=== PATIENT | female | born 1945 | race Hispanic/Latino ===

== ENCOUNTER 2018-04-21 07:08 | Emergency (ER) | payer MEDICARE, OTHER ==
[~2018-04-21] VITALS: Ht 149.9 cm; Wt 47.2 kg
[2018-04-21 08:18] LABS: BILIRUBIN,URINE NEGATIVE (NEGATIVE); CLARITY,URINE CLEAR (CLEAR); COLOR,URINE YELLOW (YELLOW); KETONES,URINE NEGATIVE (NEGATIVE); LEUKOCYTE ESTERASE ,URINE NEGATIVE (NEGATIVE); NITRITE,URINE NEGATIVE (NEGATIVE); PROTEIN,URINE DIPSTICK NEGATIVE (NEGATIVE); URINE UROBILINOGEN 1 mg/dL (0.2 - 1)
--- NOTE | 2018-04-21 08:23 | Diagnostic Imaging Report ---
PROCEDURE: CHEST SINGLE (PORTABLE) COMPARISON: Cervical spine radiographs 03/04/2017. INDICATIONS: SHORTNESS OF BREATH, WEAKNESS FINDINGS: Interval placement of a left subclavian approach implantable cardiac device. The device body projects over the left midlung. The lungs are well-inflated and without focal consolidation, pleural effusion, or pneumothorax. Tortuosity of the thoracic aorta with otherwise normal heart size. No overt pulmonary edema. No acute osseous abnormalities. 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 Surgical clips along the right chest wall and projecting over the right lower lung. Surgical clips projecting over the right upper quadrant of the abdomen likely related to prior cholecystectomy. CONCLUSION: No acute cardiopulmonary abnormality. Dictated by: Vinod Krause M.D. on 04/21/2018 at 8:26 Electronically approved by: Vinod Krause M.D. on 04/21/2018 at 8:26
[2018-04-21 08:26] LABS: BACTERIA,URINE FEW /HPF; EPITHELIAL CELLS,URINE FEW /LPF; RBC,URINE 0-5 /HPF (0-5); WBC,URINE (MAN) 0-5 /HPF (0-5)
[2018-04-21 08:33] LABS: BASOPHILS # (AUTO) 0.1 (0.0-0.1); BASOPHILS % 1.2 % (0.0-1.0); EOSINOPHILS # (AUTO) 0.1 (0.0-0.4); EOSINOPHILS % 0.7 % (0.0-6.0); HEMATOCRIT 36.6 % (34.2-44.1); HEMOGLOBIN 11.8 g/dL (12.0-16.0); LYMPHOCYTES # (AUTO) 1.1 (1.0-3.2); MEAN CORPUSCULAR HEMOGLOBIN 28.5 pg (28-32); MEAN CORPUSCULAR HGB CONC 32.2 g/dL (31-35); MEAN CORPUSCULAR VOLUME 88.4 fL (81-99); MONOCYTES # (AUTO) 0.4 (0.2-0.8); MONOCYTES % 5.3 % (4.4-11.3); NEUTROPHILS # (AUTO) 5.9 (2.1-6.9); NEUTROPHILS % 77.5 % (38.7-80.0); PLATELET COUNT 426 x10e3/uL (140-360); RED BLOOD COUNT 4.14 x10e6/uL (3.6-5.1); RED CELL DISTRIBUTION WIDTH 15.2 % (11.7-14.4)
[2018-04-21] MEDS: ASPIRIN 81 MG CHEW TAB PO ONE (08:37)
[2018-04-21 08:52] LABS: ALANINE AMINOTRANSFERASE 7 IU/L (0-55); ALBUMIN 3.1 g/dL (3.5-5.0); ALBUMIN/GLOBULIN RATIO 0.6 (0.8-2.0); ALKALINE PHOSPHATASE 64 IU/L (40-150); ANION GAP 12.7 mmol/L (8-16); BLOOD UREA NITROGEN 8 mg/dL (7-26); BUN/CREATININE RATIO 12 (6-25); CALCIUM 8.7 mg/dL (8.4-10.2); CARBON DIOXIDE 24 mmol/L (22-29); CHLORIDE 104 mmol/L (98-107); CREATINE KINASE 31 IU/L (29-168); CREATININE, SERUM 0.67 mg/dL (0.57-1.11); EST GLOMERULAR FILTRATION RATE > 60 ML/MIN (60-); GLUCOSE 143 mg/dL (74-118); MAGNESIUM 2.4 MG/DL (1.3-2.1); POTASSIUM 3.7 mmol/L (3.5-5.1); SODIUM 137 mmol/L (136-145)
== END 2018-04-21 12:49 | disposition home or self-care (01) ==
LOC: ER 07:08
DX: D64.9 Anemia, unspecified (principal); R53.1 Weakness; I10 Essential (primary) hypertension; E11.9 Type 2 diabetes mellitus without complications; I51.9 Heart disease, unspecified; Z95.0 Presence of cardiac pacemaker
CPT/HCPCS: 36415; 71045; 80053; 81001; 82550; 82553; 83735; 84484; 85025; 93005; 99284

== ENCOUNTER 2018-09-17 14:48 | Inpatient (IN) | payer MEDICARE, OTHER ==
[~2018-09-17] VITALS: Ht 149.9 cm; Wt 48.5 kg
--- OUTSIDE RECORDS SUMMARY | 2018-09-17 14:51 | XMS REPORT | Clinical Summary ---
Author Author [facility] Address Unknown Phone Unavailable Care Team Providers Care Medical Planner Name Role Phone Anders Brady Betty PCP Sharpless Unavailable Allergies Comments Active Allergy Reactions Severity Noted Date Naproxen Sodium 12/15/2015 Acetaminophen-Calcium 12/15/2015 Carbonat Diclofenac-Misoprostol 12/15/2015 Aspirin 12/15/2015 Ciprofloxacin 10/31/2016 Clarithromycin 10/31/2016 [place]ut 04/01/2018 Diphenhydramine 10/31/2016 Erythromycin 12/15/2015 Flurbiprofen 04/01/2018 Hydrocodone-Ibuprofen 12/15/2015 Ibuprofen 04/01/2018 Lisinopril Itching, Low 08/11/2018 Anxiety Acetaminophen-Pamabrom 10/31/2016 Morphine Sulfate 10/31/2016 Nsaids (Non-Steroidal 10/31/2016 Anti-Inflammatory Drug) Onion 04/01/2018 [place] 04/01/2018 [place] (Prunus Persica) 04/01/2018 Pear 04/01/2018 Penicillins 10/31/2016 Tetracyclines 10/31/2016 Tobramycin 04/01/2018 Tomato (Solanum 04/01/2018 Lycopersicum) Tuna Oil 04/01/2018 Medications End Date Status Medication Sig Dispensed Refills Start Date Active oxybutynin (DITROPAN-XL) Take 10 mg by 0 10 MG 24 hr tablet mouth daily. Active calcium citrate-vitamin D Take 1 tablet 0 (CITRACAL+D) 315-200 by mouth 2 mg-unit per tablet (two) times daily. Active fluticasone (FLONASE) 50 1 spray by 0 mcg/actuation nasal spray Nasal route daily. Active pregabalin (LYRICA) 50 MG Take 50 mg by 0 capsule mouth 2 (two) times daily. Active denosumab (XGEVA) 120 Inject 60 mg 0 mg/1.7 mL (70 mg/mL) subcutaneousl injection y every 6 (six) months. Active sodium chloride 0.65% 1 spray by 0 (SODIUM CHLORIDE) 0.65 % Nasal route nasal spray as needed for Congestion. 04/04/2019 Active levETIRAcetam (KEPPRA) Take 1 tablet 0 500 MG tablet (500 mg 8 total) by mouth 2 (two) times daily. 04/02/2018 Discontinued budesonide (ENTOCORT EC) Take 9 mg by 0 3 mg 24 hr capsule mouth every morning. 04/04/2018 Discontinued budesonide 9 mg TaDE Take 1 tablet 0 by mouth daily. 04/02/2018 Discontinued CALCIUM CITRATE/VITAMIN Take by 0 D3 (CITRACAL + D ORAL) mouth. 08/27/2018 Discontinued cholestyramine sugar-free Take 1 packet 0 (QUESTRAN LIGHT) 4 gram by mouth PwPk packet daily. 04/02/2018 Discontinued diphenoxylate-atropine Take 1 tablet 0 (LOMOTIL) 2.5-0.025 mg by mouth 4 per tablet (four) times daily as needed for Diarrhea. 08/27/2018 Discontinued esomeprazole (NEXIUM) 40 Take 40 mg by 0 MG capsule mouth daily. 04/02/2018 Discontinued folic acid (FOLVITE) 400 Take 400 mcg 0 MCG tablet by mouth daily. 08/27/2018 Discontinued furosemide (LASIX) 20 MG Take 20 mg by 0 tablet mouth daily. 04/01/2018 Discontinued GINKGO BILOBA ORAL Take by 0 mouth. 08/15/2018 Discontinued glimepiride (AMARYL) 2 MG Take 2 mg by 0 tablet mouth every morning before breakfast. 04/02/2018 Discontinued HYDROcodone-acetaminophen Take 1 tablet 0 (NORCO 5-325) 5-325 mg by mouth per tablet every 4 (four) hours as needed for Pain. 08/27/2018 Discontinued iron polysacch Take 1 0 [id number] 150-25-1 capsule by mg-mcg-mg Cap mouth 2 (two) times daily. 04/02/2018 Discontinued levETIRAcetam (KEPPRA) Take 500 mg 0 500 MG tablet by mouth 2 (two) times daily. 08/27/2018 Discontinued levocetirizine (XYZAL) 5 Take 5 mg by 0 MG tablet mouth every evening. 08/27/2018 Discontinued digestive enzymes Tab Take by 0 mouth. 08/27/2018 Discontinued LORazepam (ATIVAN) 1 MG Take 1 mg by 0 tablet mouth every 8 (eight) hours as needed for Anxiety. 08/15/2018 Discontinued metoprolol (TOPROL-XL) 25 Take 50 mg by 0 MG 24 hr tablet mouth daily . 08/15/2018 Discontinued psyllium (METAMUCIL) Take 1 packet 0 powder by mouth daily. 04/02/2018 Discontinued predniSONE (DELTASONE) 10 Take 40 mg by 0 MG tablet mouth daily. 04/01/2018 Discontinued pregabalin (LYRICA) 100 Take 50 mg by 0 MG capsule mouth 2 (two) times daily . 04/02/2018 Discontinued bifidobacterium infantis Take by 0 4 mg Cap mouth. 08/27/2018 Discontinued sertraline (ZOLOFT) 25 MG Take 25 mg by 0 tablet mouth daily. 04/02/2018 Discontinued starch (ANUSOL) 51 % Place 1 0 suppository suppository rectally nightly. 04/02/2018 Discontinued sucralfate (CARAFATE) 1 Take 1 g by 0 gram tablet mouth 4 (four) times daily. 04/01/2018 Discontinued sertraline (ZOLOFT) 25 MG Take 25 mg by 0 tablet mouth daily. 04/04/2018 Discontinued pantoprazole (PROTONIX) Take 40 mg by 0 40 MG tablet mouth daily. 04/01/2018 Discontinued LORazepam (ATIVAN) 1 MG Take 1 mg by 0 tablet mouth every 6 (six) hours as needed for Anxiety. 04/01/2018 Discontinued pregabalin (LYRICA) 50 MG Take 50 mg by 0 capsule mouth 3 (three) times daily. 08/15/2018 Discontinued losartan (COZAAR) 25 MG Take 25 mg by 0 tablet mouth daily. 04/01/2018 Discontinued furosemide (LASIX) 20 MG Take 20 mg by 0 tablet mouth 2 (two) times daily. 04/01/2018 Discontinued levocetirizine (XYZAL) 5 Take 5 mg by 0 MG tablet mouth every evening. 04/01/2018 Discontinued glimepiride (AMARYL) 2 MG Take 2 mg by 0 tablet mouth every morning before breakfast. 04/01/2018 Discontinued cholecalciferol, vitamin Take 5,000 0 D3, 5,000 unit Tab Units by mouth daily. 08/15/2018 Discontinued GINKGO BILOBA EXTRACT Take by 0 ORAL mouth. 04/01/2018 Discontinued pregabalin (LYRICA) 50 MG Take 50 mg by 0 capsule mouth 3 (three) times daily. 04/02/2018 Discontinued cholecalciferol, vitamin Take 50,000 0 D3, 50,000 unit Tab Units by mouth once a week. 08/15/2018 Discontinued metroNIDAZOLE (FLAGYL) Take 1 tablet 30 tablet 0 500 MG tablet (500 mg 8 total) by mouth 3 (three) times daily. 09/14/2018 Lactobacillus Take 1 tablet 60 tablet 0 acidoph-L.bulgar by mouth 2 8 (FLORANEX) 1 million cell (two) times Tab per tablet daily for 30 days. 08/24/2018 metroNIDAZOLE (FLAGYL) Take 1 tablet 30 tablet 0 500 MG tablet (500 mg 8 total) by mouth 3 (three) times daily for 9 days. 08/25/2018 simethicone (MYLICON) 80 Take 1 tablet 40 tablet 0 08/15/201 MG chewable tablet (80 mg total) 8 by mouth 4 (four) times daily for 10 days. 09/14/2018 glimepiride (AMARYL) 2 MG Take 1 tablet 30 tablet 0 201 tablet (2 mg total) 8 by mouth every morning before breakfast for 30 days. 09/14/2018 metoprolol (TOPROL-XL) 25 Take 1 tablet 30 tablet 0 201 MG 24 hr tablet (25 mg total) 8 by mouth daily for 30 days. 08/24/2018 ciprofloxacin HCl (CIPRO) Take 1 tablet 18 tablet 0 500 MG tablet (500 mg 8 total) by mouth 2 (two) times daily for 9 days. Active Problems Problem Noted Date Anemia 08/11/2018 Acute diarrhea 08/10/2018 Crohn disease 04/01/2018 Hypertension 04/01/2018 Type II diabetes mellitus 04/01/2018 Major depressive disorder 04/01/2018 Resolved Problems Problem Noted Date Resolved Date Crohn's disease 04/02/2018 08/11/2018 Crohn's disease with complication, unspecified gastrointestinal tract 04/02/2018 08/11/2018 location Intractable diarrhea 04/01/2018 08/11/2018 Encounters Care Team Description Date Type Specialty Susu Chase MD Shamsee, MD Cristian Mcgovern Maria, MD Acute diarrhea (Primary Dx); Crohn's disease with complication, unspecified gastrointestinal tract location (HCC); Dehydration; Crohn's disease without complication, unspecified gastrointestinal tract location (HCC); History of diabetes mellitus; Generalized abdominal pain; Hypertension, unspecified type; Type 2 diabetes mellitus without complication, without long-term current use of insulin (HCC); Bloody diarrhea; Sputum culture positive for Aspergillus (HCC); Mycobacterium avium complex colonization 08/10/2018 Hospital General Internal Medicine - Encounter 08/15/2018 08/10/2018 Orders Only General Internal Medicine Dru Hanson MD 04/03/2018 Anesthesia Gastroenterology Event [facility], Trever Horvath MD UPPER ENDOSCOPY,BIOPSY 04/03/2018 Surgery Gastroenterology Nayeli Bermudez MD Parhizgar, Alireza, MD Crohn's disease with complication, unspecified gastrointestinal tract location (HCC); Hypertension, unspecified type; Intractable diarrhea; Episode of recurrent major depressive disorder, unspecified depression episode severity (HCC); Type 2 diabetes mellitus without complication, without long-term current use of insulin (HCC); Aspergillus ([facility]); MAIC (mycobacterium avium-intracellulare complex) ([facility]) 04/01/2018 Hospital Oncology - Encounter 04/04/2018 Nayeli Bermudez MD 04/01/2018 Orders Only Internal Medicine after 09/16/2017 Social History Date Tobacco Use Types Packs/Day Years Used Never Smoker Smokeless Tobacco: Never Used Alcohol Use Drinks/Week oz/Week Comments No Sex Assigned at Date Recorded Not on file Industry Job Start Date Occupation Not on file Not on file Not on file Travel End Travel History Travel Start No recent travel history available. Last Filed Vital Signs Time Taken Vital Sign Reading 08/15/2018 12:42 PM CDT Blood Pressure 102/52 08/15/2018 12:42 PM CDT Pulse 87 08/15/2018 12:42 PM CDT Temperature 35.7 C (96.3 F) 08/15/2018 12:42 PM CDT Respiratory Rate 17 08/15/2018 12:42 PM CDT Oxygen Saturation 99% - Inhaled Oxygen - Concentration 08/15/2018 5:26 AM CDT Weight 46.8 kg (103 lb 3.2 oz) 08/10/2018 8:10 PM CDT Height 149.9 cm (4' 11") 08/15/2018 5:26 AM CDT Body Mass Index 20.84 Plan of Treatment Not on file Procedures Comments Procedure Name Priority Date/Time Associated Diagnosis POCT-GLUCOSE METER Routine 08/15/2018 12:46 PM CDT POCT-GLUCOSE METER Routine 08/15/2018 8:26 AM CDT (CELLAVISION MANUAL DIFF) Routine 08/15/2018 8:25 AM CDT CBC W/PLT COUNT & AUTO Routine 08/15/2018 DIFFERENTIAL 8:25 AM CDT CBC W/PLT COUNT & AUTO Routine 08/15/2018 DIFFERENTIAL 8:25 AM CDT MAGNESIUM Routine 08/15/2018 5:46 AM CDT BASIC METABOLIC PANEL (7) Routine 08/15/2018 5:46 AM CDT ASPERGILLUS ANTIBODIES Routine 08/15/2018 5:46 AM CDT ASPERGILLUS GALACTOMANNAN Routine 08/15/2018 ANTIGEN 5:46 AM CDT IMMUNOGLOBULIN E (IGE) Routine 08/15/2018 5:46 AM CDT POCT-GLUCOSE METER Routine 08/14/2018 9:[address] CHEST WITH HIGH STAT 08/14/2018 RESOLUTION/ILD 8:27 PM CDT POCT-GLUCOSE METER Routine 08/14/2018 12:16 PM CDT GI PATHOGEN PROFILE BY Routine 08/14/2018 PCR 11:41 AM CDT POCT-GLUCOSE METER Routine 08/14/2018 11:40 AM CDT POCT-GLUCOSE METER Routine 08/14/2018 8:07 AM CDT CBC W/PLT COUNT & AUTO Routine 08/14/2018 DIFFERENTIAL 6:46 AM CDT CBC W/PLT COUNT & AUTO Routine 08/14/2018 DIFFERENTIAL 6:46 AM CDT MAGNESIUM Routine 08/14/2018 6:46 AM CDT BASIC METABOLIC PANEL (7) Routine 08/14/2018 6:46 AM CDT POCT-GLUCOSE METER Routine 08/13/2018 9:12 PM CDT POCT-GLUCOSE METER Routine 08/13/2018 5:39 PM CDT SPIN/CONCENTRATION CHARGE Routine 08/13/2018 10:13 AM CDT FUNGUS CULTURE + SMEAR Routine 08/13/2018 10:13 AM CDT AFB CULTURE + SMEAR Routine 08/13/2018 10:13 AM CDT SPUTUM CULTURE + GRAM Routine 08/13/2018 STAIN 10:13 AM CDT CBC W/PLT COUNT & AUTO Routine 08/13/2018 DIFFERENTIAL 4:54 AM CDT CBC W/PLT COUNT & AUTO Routine 08/13/2018 DIFFERENTIAL 4:54 AM CDT MAGNESIUM Routine 08/13/2018 4:54 AM CDT PHOSPHORUS Routine 08/13/2018 4:54 AM CDT HEPATIC FUNCTION PANEL Routine 08/13/2018 4:54 AM CDT BASIC METABOLIC PANEL (7) Routine 08/13/2018 4:54 AM CDT POCT-GLUCOSE METER Routine 08/12/2018 9:03 PM CDT POCT-GLUCOSE METER Routine 08/12/2018 3:05 PM CDT POCT-GLUCOSE METER Routine 08/12/2018 11:14 AM CDT POCT-GLUCOSE METER Routine 08/12/2018 8:17 AM CDT CBC W/PLT COUNT & AUTO Routine 08/12/2018 DIFFERENTIAL 3:12 AM CDT CBC W/PLT COUNT & AUTO Routine 08/12/2018 DIFFERENTIAL 3:12 AM CDT MAGNESIUM Routine 08/12/2018 3:12 AM CDT PHOSPHORUS Routine 08/12/2018 3:12 AM CDT HEPATIC FUNCTION PANEL Routine 08/12/2018 3:12 AM CDT BASIC METABOLIC PANEL (7) Routine 08/12/2018 3:12 AM CDT POCT-GLUCOSE METER Routine 08/11/2018 6:04 PM CDT CMV PCR, QUANTITATIVE Routine 08/11/2018 1:31 PM CDT C-REACTIVE PROTEIN Routine 08/11/2018 9:29 AM CDT TSH/FREE T4 IF INDICATED Routine 08/11/2018 9:29 AM CDT LIPID PANEL Routine 08/11/2018 9:29 AM CDT MAGNESIUM Routine 08/11/2018 9:29 AM CDT PHOSPHORUS Routine 08/11/2018 9:29 AM CDT HEPATIC FUNCTION PANEL Routine 08/11/2018 9:29 AM CDT BASIC METABOLIC PANEL (7) Routine 08/11/2018 9:29 AM CDT STOOL PATH CHARGE Routine 08/11/2018 9:08 AM CDT STOOL CULTURE + SHIGA Routine 08/11/2018 TOXIN 9:08 AM CDT C. DIFFICILE GDH TOXIN Routine 08/11/2018 9:08 AM CDT HEMOGLOBIN A1C Routine 08/11/2018 6:[address] ABDOMEN/PELVIS WITH IV STAT 08/10/2018 CONTRAST 11:44 PM CDT STOOL PATH CHARGE Routine 08/10/2018 11:22 PM CDT SHIGA TOXIN SCREEN Routine 08/10/2018 11:22 PM CDT STOOL CULTURE + SHIGA STAT 08/10/2018 TOXIN 11:22 PM CDT URINALYSIS W/ MICROSCOPIC STAT 08/10/2018 11:21 PM CDT CBC W/PLT COUNT & AUTO STAT 08/10/2018 DIFFERENTIAL 8:30 PM CDT CBC W/PLT COUNT & AUTO STAT 08/10/2018 DIFFERENTIAL 8:30 PM CDT LIPASE STAT 08/10/2018 8:30 PM CDT AMYLASE STAT 08/10/2018 8:30 PM CDT HEPATIC FUNCTION PANEL STAT 08/10/2018 8:30 PM CDT BASIC METABOLIC PANEL (7) STAT 08/10/2018 8:30 PM CDT ECG 12-LEAD Routine 08/10/2018 8:26 PM CDT Procedure Note - Interface, External Ris In - 08/10/2018 8:34 PM CDT Ventricula r Rate 98 BPM Atrial Rate 98 BPM P-R Interval 134 ms QRS Duration 74 ms Q-T Interval 366 ms QTC Calculatio n(Bazett) 467 ms P [employer] 23 degrees R [employer] 44 degrees T [employer] 108 degrees Normal sinus rhythm Nonspecifi c ST and T wave abnormalit y Abnormal ECG When compared with ECG of 7 15:56, Nonspecifi c T wave abnormalit y now evident in Inferior leads ECG 12-LEAD STAT 08/10/2018 8:26 PM CDT POCT-GLUCOSE METER Routine 04/04/2018 3:54 PM CDT POCT-GLUCOSE METER Routine 04/04/2018 10:46 AM CDT POCT-GLUCOSE METER Routine 04/04/2018 7:45 AM CDT POCT-GLUCOSE METER Routine 04/03/2018 9:05 PM CDT POCT-GLUCOSE METER Routine 04/03/2018 5:49 PM CDT REPORT OF PROCEDURE - 04/03/2018 ENDOSCOPY URL 4:19 PM CDT REPORT OF PROCEDURE - 04/03/2018 ENDOSCOPY URL 4:10 PM CDT TISSUE EXAM AP Routine 04/03/2018 2:56 PM CDT COLONOSCOPY 04/03/2018 Crohn's disease with 1:40 PM CDT complication, unspecified gastrointestinal tract location (HCC) UPPER ENDOSCOPY,BIOPSY 04/03/2018 Crohn's disease with 1:40 PM CDT complication, unspecified gastrointestinal tract location (HCC) POCT-GLUCOSE METER Routine 04/03/2018 11:26 AM CDT POCT-GLUCOSE METER Routine 04/03/2018 7:17 AM CDT CBC W/PLT COUNT & AUTO Routine 04/03/2018 DIFFERENTIAL 4:15 AM CDT CBC W/PLT COUNT & AUTO Routine 04/03/2018 DIFFERENTIAL 4:15 AM CDT PHOSPHORUS Routine 04/03/2018 4:15 AM CDT MAGNESIUM Routine 04/03/2018 4:15 AM CDT CALCIUM, IONIZED Routine 04/03/2018 4:15 AM CDT BASIC METABOLIC PANEL (7) Routine 04/03/2018 4:15 AM CDT POCT-GLUCOSE METER Routine 04/02/2018 8:42 PM CDT POCT-GLUCOSE METER Routine 04/02/2018 5:21 PM CDT C-REACTIVE PROTEIN Routine 04/02/2018 2:18 PM CDT GI PATHOGEN PROFILE BY Routine 04/02/2018 PCR 11:58 AM CDT OVA AND PARASITE Routine 04/02/2018 EXAMINATION 11:55 AM CDT POCT-GLUCOSE METER Routine 04/02/2018 11:53 AM CDT POCT-GLUCOSE METER Routine 04/02/2018 7:27 AM CDT TSH/FREE T4 IF INDICATED Routine 04/02/2018 7:07 AM CDT BASIC METABOLIC PANEL (7) Routine 04/02/2018 7:07 AM CDT PHOSPHORUS Routine 04/02/2018 7:07 AM CDT MAGNESIUM Routine 04/02/2018 7:07 AM CDT LIPID PANEL Routine 04/02/2018 7:07 AM CDT CBC W/PLT COUNT & AUTO Routine 04/02/2018 DIFFERENTIAL 5:12 AM CDT B-TYPE NATRIURETIC FACTOR Routine 04/02/2018 (BNP) 5:12 AM CDT CBC W/PLT COUNT & AUTO Routine 04/02/2018 DIFFERENTIAL 5:12 AM CDT CALCIUM, IONIZED Routine 04/02/2018 5:12 AM CDT HEMOGLOBIN A1C Routine 04/02/2018 5:12 AM CDT POCT-GLUCOSE METER Routine 04/01/2018 10:11 PM CDT CBC W/PLT COUNT & AUTO Routine 04/01/2018 DIFFERENTIAL 10:10 PM CDT C-REACTIVE PROTEIN Routine 04/01/2018 10:10 PM CDT COMPREHENSIVE METABOLIC Routine 04/01/2018 PANEL 10:10 PM CDT CBC W/PLT COUNT & AUTO Routine 04/01/2018 DIFFERENTIAL 10:10 PM CDT STOOL PATH CHARGE Routine 04/01/2018 10:05 PM CDT SHIGA TOXIN SCREEN Routine 04/01/2018 10:05 PM CDT OCCULT BLOOD, STOOL Routine 04/01/2018 10:05 PM CDT STOOL CULTURE + SHIGA Routine 04/01/2018 TOXIN 10:05 PM CDT FECAL LEUKOCYTES Routine 04/01/2018 10:05 PM CDT C. DIFFICILE GDH TOXIN Routine 04/01/2018 10:04 PM CDT after 09/16/2017 Results * POC-Glucose meter (08/15/2018 12:46 PM CDT) Only the most recent of 25 results within the time period is included. POC-Glucose Meter 143 (H)Comment: TESTED AT 70 - 110 mg/dL [facility] [address] [facility] [id number] Specimen Blood Performing Organization Address City/State/Zipcode Phone Number [address] [address] MEDICAL CENTER * Manual Differential (08/15/2018 8:25 AM CDT) % Neutros 43 % [facility] % Lymphs 21 % [facility] % Monos 3 % [facility] % Eos 4 % [facility] % Baso 1 % [facility] % Bands 29 (H) 0 - 10 % [facility] # Neutros 3.14 1.56 - 6.13 K/ul [facility] # Lymphs 1.53 1.18 - 3.74 K/ul [facility] # Monos 0.22 (L) 0.24 - 0.36 K/uL [facility] # Eos 0.29 0.04 - 0.36 K/uL [facility] # Baso 0.07 0.01 - 0.08 K/uL [facility] # Bands 2.12 (H) 0.00 - 0.80 K/uL [facility] Total Counted 100 [facility] WBC Morphology Normal [facility] Giant Platelet Present [facility] Large Platelet Present [facility] Hypochromia 2+ moderate [facility] Anisocytosis 2+ moderate [facility] Microcytes 1+ few [facility] Macrocytes 2+ moderate [facility] Poikilocytes 1+ few [facility] Ovalocytes 1+ few [facility] Tear Drop Cells 1+ few [facility] Acanthocytes 1+ few [facility] Artifact Present [facility] Platelet Conc Adequate [facility] Specimen Blood - Arm, Left Narrative Performed At Received comment: [facility] User comments: [facility] [place] Slide comments: Performing Organization Address City/State/Zipcode Phone Number [facility] [address] [facility] [place] [address] MED[facility]ENTER * CBC with platelet count + automated diff (08/15/2018 8:25 AM CDT) Only the most recent of 8 results within the time period is included. WBC 7.3 3.5 - 10.5 K/L [facility] RBC 3.44 (L) 3.93 - 5.22 M/L [facility] Hemoglobin 8.6 (L) 11.2 - 15.7 GM/DL [facility] Hematocrit 28.5 (L) 34.1 - 44.9 % [facility] MCV 82.8 79.4 - 94.8 fL [facility] MCH 25.0 (L) 25.6 - 32.2 pg [facility] MCHC 30.2 (L) 32.2 - 35.5 GM/DL [facility] RDW 16.3 (H) 11.7 - 14.4 % [facility] Platelets 451 (H) 150 - 450 K/CU MM [facility] MPV 9.0 (L) 9.4 - 12.3 fL [facility] nRBC 0 0 - 0 /100 WBC [facility] Specimen Blood - Arm, Left Performing Organization Address City/State/Zipcode Phone Number [facility] [address] [place] [address] MEDICAL CENTER * Aspergillus antibodies (08/15/2018 5:46 AM CDT) Aspergillus flavus Ab NEGATIVE [facility] Aspergillus niger Ab NEGATIVE [facility] Aspergillus Fumigatus NEGATIVE [facility] Comment: INCORPORATED REFERENCE RANGE: NEGATIVE INTERPRETIVE CRITERIA: Negative: Antibody not detected Positive: Antibody detected A positive result is represented by 1 or more precipitin bands, and may indicate fungus ball, allergic bronchopulmonary aspergillosis (RAMYA) or invasive aspergillosis.Generally, the appearance of 3-4 bands indicates either fungus ball or RAMYA. Specimen Blood - Arm, Left Narrative Performed At Performing Lab [facility] *[facility] [address] [place] [phone] Jay Jay Phelps MD Performing Organization Address City/[facility] Phone Number [facility], [address] [place], [place] [id number] * Aspergillus galactomannan antigen (08/15/2018 5:46 AM CDT) Aspergillus Index Value <0.50 [facility] Aspergillus Antigen NOT DETECTED [facility] Comment: INCORPORATED REFERENCE RANGE: <0.50, NOT DETECTED A negative result does not exclude invasive aspergillosis. Follow-up testing may be indicated for high-risk patients. Specimen Blood - Arm, Left Narrative Performed At Performing Lab [facility] *[facility] [address] [place] [id number] Jay Jay Phelps MD Performing Organization Address [facility] Phone Number [facility], [address] [place], [place] [id number] * Magnesium (08/15/2018 5:46 AM CDT) Only the most recent of 7 results within the time period is included. Magnesium 2.0 1.6 - 2.6 mg/dL [facility] Specimen Blood - Arm, Left Performing Organization Address [facility] Phone Number [place] [phone] * Immunoglobulin E (IgE) (08/15/2018 5:46 AM CDT) Immunoglobulin E 30 114 OR LESS kU/L [facility] Specimen Blood - Arm, Left Narrative Performed At Performing Lab [facility] [address] [address] Aman Cody MD, PhD, GIOVANNI Performing Organization Address City/[facility] Phone Number [facility], [address] [place], [place] [phone] * Basic Metabolic Panel (08/15/2018 5:46 AM CDT) Only the most recent of 8 results within the time period is included. Sodium 137 136 - 145 meq/L [facility] Potassium 4.1 3.5 - 5.1 meq/L [facility] Chloride 110 (H) 98 - 107 meq/L [facility] CO2 20 (L) 22 - 29 meq/L [facility] BUN 3 (L) 7 - 21 mg/dL [facility] Creatinine 0.66 0.57 - 1.25 mg/dL [facility] Glucose 114 (H) 70 - 105 mg/dL [facility] Calcium 8.3 (L) 8.4 - 10.2 mg/dL [facility] EGFR 88Comment: ESTIMATED GFR IS mL/min/1.73 sq m [facility] NOT ACCURATE CREATININE [facility] CLEARANCE IN PREDICTING GLOMERULAR FILTRATION RATE. ESTIMATED GFR IS NOT APPLICABLE FOR DIALYSIS PATIENTS. Specimen Blood - Arm, Left Performing Organization Address City/State/Zipcode Phone Number [facility] [address] [place] [address] [facility] * CT chest with high resolution/ild (08/14/2018 8:27 PM CDT) Narrative Performed At FINAL REPORT [facility] CLINICAL INDICATION: Sputum cultures positive for Aspergillus and an a.c., previous imaging demonstrating central bronchiectasis COMPARISON: None Multiple axial images of the chest were performed without IV contrast. A high resolution protocol was performed, including supine inspiratory and expiratory high resolution imaging. This exam was performed according to our departmental dose-optimization program, which includes automated exposure control, adjustment of the mA and/or kV according to patient size and/or use of the iterative reconstruction technique. FINDINGS: Lung parenchyma: There is no focal consolidation. No interstitial abnormality is noted. A calcified granuloma is present in the right lower lobe but otherwise no pulmonary nodularity is noted. The lung volumes are normal. There is no evidence of air trapping. Pleural effusion: None. Pneumothorax: None. Tracheobronchial tree: No bronchiectasis is identified. There is no significant peribronchial thickening. No endobronchial opacification is noted. Pulmonary vasculature: No significant findings. Cardiac contours and great vessels: Atherosclerotic calcification of the aorta. Left subclavian ICD. Mediastinum: No significant findings. Lymph Nodes: No adenopathy in the mediastinum or beranna. Skeleton: No acute abnormality. Other: Status post right mastectomy and right breast reconstruction with right axillary lymph node dissection. Limited images of upper abdomen: No significant findings. IMPRESSION: No acute or active cardiopulmonary abnormality. Specifically, no CT evidence of pulmonary fibrosis, bronchiectasis, air trapping or significant nodularity. Signed: Aron Rogers MD Report Verified Date/Time:08/14/2018 20:51:25 Reading Location: [address] Reading Room Procedure Note Interface, External Ris In - 08/14/2018 8:53 PM CDT FINAL REPORT CLINICAL INDICATION: Sputum cultures positive for Aspergillus and an a.c., previous imaging demonstrating central bronchiectasis COMPARISON: None Multiple axial images of the chest were performed without IV contrast. A high resolution protocol was performed, including supine inspiratory and expiratory high resolution imaging. This exam was performed according to our departmental dose-optimization program, which includes automated exposure control, adjustment of the mA and/or kV according to patient size and/or use of the iterative reconstruction technique. FINDINGS: Lung parenchyma: There is no focal consolidation. No interstitial abnormality is noted. A calcified granuloma is present in the right lower lobe but otherwise no pulmonary nodularity is noted. The lung volumes are normal. There is no evidence of air trapping. Pleural effusion: None. Pneumothorax: None. Tracheobronchial tree: No bronchiectasis is identified. There is no significant peribronchial thickening. No endobronchial opacification is noted. Pulmonary vasculature: No significant findings. Cardiac contours and great vessels: Atherosclerotic calcification of the aorta. Left subclavian ICD. Mediastinum: No significant findings. Lymph Nodes: No adenopathy in the mediastinum or breanna. Skeleton: No acute abnormality. Other: Status post right mastectomy and right breast reconstruction with right axillary lymph node dissection. Limited images of upper abdomen: No significant findings. IMPRESSION: No acute or active cardiopulmonary abnormality. Specifically, no CT evidence of pulmonary fibrosis, bronchiectasis, air trapping or significant nodularity. Signed: Aron Rogers MD Report Verified Date/Time: 08/14/2018 20:51:25 Reading Location: [address] Reading Room Performing Organization Address City/State/Zipcode Phone Number [facility] * GI Pathogen Profile by PCR -ID Only (08/14/2018 11:41 AM CDT) Only the most recent of 2 results within the time period is included. CAMPYLOBACTER (PCR) Not detected Not detected [facility] PLESIOMONAS SHIGELLOIDES Not detected Not detected [facility] (PCR) [facility] SALMONELLA (PCR) Not detected Not detected [facility] YERSINIA ENTEROCOLITICA Not detected Not detected [facility] (PCR) [facility] VIBRIO CHOLERAE (PCR) Not detected Not detected [facility] ENTEROAGGREGATIVE E. COLI Not detected Not detected [facility] (EAEC) BY PCR [facility] ENTEROPATHOGENIC E. COLI Not detected Not detected [facility] (EPEC) BY PCR [facility] ENTEROTOXIGENIC E. COLI Not detected Not detected [facility] (ETEC) LT/ST BY PCR [facility] SHIGA-LIKE Not detected Not detected [facility] TOXIN-PRODUCING E. COLI [facility] (STEC) STX1/STX2 E. COLI O157 (PCR) Not detected [facility] SHIGELLA/ENTEROINVASIVE Not detected Not detected [facility] E. COLI (EIEC) BY PCR [facility] CRYPTOSPORIDIUM (PCR) Not detected Not detected [facility] CYCLOSPORA CAYETANENSIS Not detected Not detected [facility] (PCR) [facility] ENTAMOEBA HISTOLYTICA Not detected Not detected [facility] (PCR) [facility] GIARDIA LAMBLIA (PCR) Not detected Not detected [facility] ADENOVIRUS F 40/41 (PCR) Not detected Not detected [facility] ASTROVIRUS (PCR) Not detected Not detected [facility] NOROVIRUS GI/GII (PCR) Not detected Not detected [facility] ROTAVIRUS A (PCR) Not detected Not detected [facility] SAPOVIRUS (I, II, IV, V) Not detected Not detected [facility] BY PCR [facility] VIBRIO (PARAHAEMOLYTICUS, Not detected Not detected [facility] VULNIFICUS) [facility] Specimen Stool - Stool Narrative Performed At Other viruses, parasites and bacteria not targeted by this PCR panel cannot be [facility] excluded; therefore clinical correlation and follow up of serology, culture [facility] results, and other molecular studies is required. The results are not intended to be used as the sole means for clinical diagnosis or patient management decisions. This sample was tested at the [facility] Molecular Diagnostics Laboratory using the [facility] Gastrointestinal Panel. It is FDA cleared and has been verified and approved by the [facility] Molecular [facility]ostics [facility] for clinical use. This laboratory is CLIA-certified and [employer] (CAP)-accredited to perform high complexity testing. Performing Organization Address City/[facility] Phone Number [address] [address] [facility] * SPIN/CONCENTRATION CHARGE (08/13/2018 10:13 AM CDT) Concentration charged Done [facility] Specimen Sputum - Expectorated Performing Organization Address City/[facility] Phone Number [address] [address] [facility] * Sputum Culture + Gram Stain (08/13/2018 10:13 AM CDT) Result 4+ Normal respiratory danny [facility] present [facility] Gram Stain Result 3+ WBCs [facility] Gram Stain Result 5-10 epithelial cells [facility] Gram Stain Result No organisms seen [facility] Specimen Sputum - Expectorated Narrative Performed At [facility] Performing Organization Address [facility] Phone Number [address] [address] [facility] * Fungus culture + smear (08/13/2018 10:13 AM CDT) Result No fungus isolated in 28 days [facility] Fungus Smear No fungi seen [facility] Specimen Sputum - Expectorated Performing Organization Address City/[facility] [place] [address] [phone] [place] [address] * Phosphorus (08/13/2018 4:54 AM CDT) Only the most recent of 5 results within the time period is included. Phosphorus 3.0Comment: Specimen slightly 2.3 - 4.7 mg/dL [facility] Specimen Blood Performing Organization Address [facility] [place] [address] [phone] [place] [address] * Hepatic function panel (08/13/2018 4:54 AM CDT) Only the most recent of 4 results within the time period is included. Protein, Total 6.2Comment: Specimen slightly 6.0 - 8.3 gm/dL [facility] Albumin 2.8 (L)Comment: Specimen 3.5 - 5.0 g/dL [facility] Total Bilirubin 0.3Comment: Specimen slightly 0.2 - 1.2 mg/dL [facility] Bilirubin, Direct 0.1Comment: Specimen slightly 0.1 - 0.5 mg/dL [facility] Alkaline Phosphatase 68 40 - 150 U/L [facility] AST 12Comment: Specimen slightly 5 - 34 U/L [facility] ALT <6 (L)Comment: Specimen 6 - 55 U/L [facility] slightly [facility] Specimen Blood Performing Organization Address City/[facility] Phone Number [address] [address] [facility] * CMV PCR, quantitative (08/11/2018 1:31 PM CDT) CMV DNA Viral Load Negative or below the linear [facility] range of the assay (<375 [facility] copies/mL) Specimen Blood - Arm, Left Narrative Performed At Cytomegalovirus (CMV) infection can cause significant disease in [facility] immunosuppressed patients. However, it is common for CMV to manifest as a [facility] limited infection which is of no clinical significance in immunosuppressed patients or in healthy individuals. Viral load measurements are helpful to identify clinical CMV infection and to guide the pre-emptive management of antiviral therapy.For treatment of CMV infection due to reactivation in transplant recipients, a threshold between 4,000 and 5,000 copies/mL is suggested.For treatment of primary CMV infection, a lower threshold can be used. CMV infection may also be monitored using weekly serial measurements. Serial measurements of CMV DNA viral load can be evaluated by identifying a 10-fold change, as well as assessing the CMV DNA viral load and the clinical context for each patient. The plasma CMV DNA viral load was detected using quantitative polymerase chain reaction and fluorescent monitoring of a specific hybridized probe. Genetic variation and other factors can affect the accuracy of nucleic acid testing. Therefore, the results should be interpreted in light of clinical data. A negative result may not exclude the presence of CMV disease. This test was developed and its performance characteristics determined by the [facility] Pathology Department, Section of Molecular Pathology. It has not been cleared or approved by the U.S. Food and Drug Administration (FDA), since FDA approval is not required for clinical use of the test. Validation was done as required by The Clinical Laboratory Improvement Amendments of 1988. Performing Organization Address City/State/Zipcode Phone Number [address] [address] [facility] * TSH/Free T4 If Indicated (08/11/2018 9:29 AM CDT) Only the most recent of 2 results within the time period is included. TSH 3.52 0.35 - 4.94 uIU/mL [facility] Specimen Blood - Arm, Left Performing Organization Address City/State/Zipcode Phone Number [facility] [address] [place] [address] [facility] * C-Reactive Protein (08/11/2018 9:29 AM CDT) Only the most recent of 3 results within the time period is included. CRP 3.20 (H) 0.00 - 0.50 mg/dL [facility] Specimen Blood - Arm, Left Performing Organization Address City/[facility] Phone Number [facility] [address] [place] [address] [facility] * Lipid panel (08/11/2018 9:29 AM CDT) Only the most recent of 2 results within the time period is included. Triglycerides 71 mg/dL [facility] Cholesterol 131 mg/dL [facility] HDL 55 mg/dL [facility] LDL Calculated 62 mg/dL [facility] Specimen Blood - Arm, Left Narrative Performed At Triglyceride Reference Range: [facility] Low Risk <150 [facility] [id number] High Risk 200-499 Very High Risk>=500 Cholesterol Reference Range: Low Risk <200 [id number] High Risk>240 HDL Cholesterol Reference Range: Low Risk >=60 High Risk <40 LDL Cholesterol Reference Range: Optimal<100 Near [id number] [id number] Very High >=190 Performing Organization Address City/[facility] Phone Number [address] [address] [facility] * Clostridium difficile [facility] Toxin (08/11/2018 9:08 AM CDT) Only the most recent of 2 results within the time period is included. C. Difficle Toxin Negative Negative [facility] C. Difficile [facility] Antigen NegativeComment: No indication Negative [facility] of Clostridium difficile [facility] infection and no colonization. Discontinue enteric isolation and therapy. Specimen Stool - Stool Narrative Performed At Testing performed by [employer] Rapid Cassette Assay.For GDH, published [facility] sensitivity of the assay is 98.7% compared to cytotoxicity testing.For Toxin [facility] AB, published sensitivity is 87.8% and specificity 99.4% compared to cytotoxicity testing. Verification of kit performance was done by the [facility] Microbiology Lab prior to clinical use. Performing Organization Address City/[facility]/Zipcode Phone Number [address] [address] [facility] * STOOL PATH CHARGE (08/11/2018 9:08 AM CDT) Only the most recent of 3 results within the time period is included. Pathogen exam charged Done [facility] Specimen Stool - Per Rectum Performing Organization Address [facility] Phone Number [address] [address] [phone] [place] [address] * Stool culture + Shiga toxin (08/11/2018 9:08 AM CDT) Only the most recent of 3 results within the time period is included. Result No Salmonella, Shigella or [facility] Campylobacter isolated [facility] Specimen Stool - Per Rectum Performing Organization Address [facility] Phone Number [address] [address] [facility] * Hemoglobin A1c (08/11/2018 6:37 AM CDT) Only the most recent of 2 results within the time period is included. Hemoglobin A1C 5.8 4.3 - 6.1 % [facility] Specimen Blood Performing Organization Address [facility] Phone Number [address] [address] [facility] * CT abdomen pelvis with IV contrast (08/10/2018 11:44 PM CDT) Narrative Performed At FINAL REPORT Novalux CT, ABDOMEN \\T\\ PELVIS, WITH IV CONTRAST INDICATION: IBD, worsening diarrhea and pain COMPARISON: None TECHNIQUE: Post contrast abdomen and pelvis CT.Coronal and sagittal reformatted images obtained. DOSE REDUCTION: Dose modulation, iterative reconstruction, and/or weight-based adjustment of the mA/kV was utilized to reduce the radiation dose to as low as reasonably achievable. FINDINGS: Lower thorax: Visible airspaces clear. No effusion. Liver: No parenchymal abnormality. Gallbladder and biliary tree: Prior cholecystectomy. Mild central biliary ductal prominence. Pancreas: No acute findings. Spleen: No acute findings Adrenal Glands: No acute findings. Kidneys and ureters: No hydronephrosis or nephrolithiasis. Bladder and reproductive organs: Unremarkable. Stomach and Duodenum: No significant findings. Small and large intestine: Small bowel caliber is normal. Mural thickening is noted to affecting nearly the entire colon. No pneumatosis is present. Appendix: The appendix is not identified. No pericecal inflammatory changes are present. Major vascular structures: Normal aortic caliber. Peritoneum and retroperitoneum: No free air, fluid or adenopathy. Skeleton: Shallow dextroconvex scoliosis of the thoracolumbar spine with associated endplate degenerative changes. Additional findings: None. IMPRESSION: Mural thickening throughout the colon compatible with provided history of inflammatory bowel disease. No pneumatosis or bowel obstruction. Signed: JR Zuniga Robert MD Report Verified Date/Time:08/10/2018 23:52:19 Reading Location: [address] Reading Room Procedure Note Interface, External Ris In - 08/10/2018 11:54 PM CDT FINAL REPORT CT, ABDOMEN \\T\\ PELVIS, WITH IV CONTRAST INDICATION: IBD, worsening diarrhea and pain COMPARISON: None TECHNIQUE: Post contrast abdomen and pelvis CT. Coronal and sagittal reformatted images obtained. DOSE REDUCTION: Dose modulation, iterative reconstruction, and/or weight-based adjustment of the mA/kV was utilized to reduce the radiation dose to as low as reasonably achievable. FINDINGS: Lower thorax: Visible airspaces clear. No effusion. Liver: No parenchymal abnormality. Gallbladder and biliary tree: Prior cholecystectomy. Mild central biliary ductal prominence. Pancreas: No acute findings. Spleen: No acute findings Adrenal Glands: No acute findings. Kidneys and ureters: No hydronephrosis or nephrolithiasis. Bladder and reproductive organs: Unremarkable. Stomach and Duodenum: No significant findings. Small and large intestine: Small bowel caliber is normal. Mural thickening is noted to affecting nearly the entire colon. No pneumatosis is present. Appendix: The appendix is not identified. No pericecal inflammatory changes are present. Major vascular structures: Normal aortic caliber. Peritoneum and retroperitoneum: No free air, fluid or adenopathy. Skeleton: Shallow dextroconvex scoliosis of the thoracolumbar spine with associated endplate degenerative changes. Additional findings: None. IMPRESSION: Mural thickening throughout the colon compatible with provided history of inflammatory bowel disease. No pneumatosis or bowel obstruction. Signed: JR Nadia, Zhang SOTO Report Verified Date/Time: 08/10/2018 23:52:19 Reading Location: [address] Reading Room Performing Organization Address City/State/Zipcode Phone Number [facility] * Shiga Toxin Screen (08/10/2018 11:22 PM CDT) Only the most recent of 2 results within the time period is included. Shiga toxin 1 Not detected Not detected [facility] Shiga toxin 2 Not detected Not detected [facility] Specimen Stool - Per Rectum Performing Organization Address City/State/Zipcode Phone Number [facility] [address] [phone] [facility] * Urinalysis w/ Microscopic (08/10/2018 11:21 PM CDT) Color, UA Colorless [facility] Clarity, UA Clear [facility] Specific [place], UA 1.003 1.001 - 1.035 [facility] pH, UA 5.0 5.0 - 8.0 [facility] Protein, UA Negative Negative [facility] Glucose, UA Negative Negative [facility] Ketones, UA Negative Negative [facility] Bilirubin, UA Negative Negative [facility] Blood, UA Negative Negative [facility] Nitrite, UA Negative Negative [facility] Leukocytes, UA Negative Negative [facility] Urobilinogen, UA 0.2 0.2 - 1.0 mg/dL [facility] RBC, UA <1 /HPF [facility] WBC, UA 1 /HPF [facility] Bacteria, UA Rare [facility] Mucus Rare [facility] Squam Epithel, UA <1 /HPF [facility] Specimen Source Urine, Voided [facility] Specimen Urine - Urine, Voided Performing Organization Address [facility] Phone Number [address] * Lipase (08/10/2018 8:30 PM CDT) Lipase 67 8 - 78 U/L [facility] Specimen Blood - Arm, Left Performing Organization Address [facility] Phone Number [address] * Amylase (08/10/2018 8:30 PM CDT) Amylase 133 (H) 25 - 125 U/L [facility] Specimen Blood - Arm, Left Performing Organization Address [facility] Phone Number [address] * ECG 12 lead (08/10/2018 8:26 PM CDT) Narrative Performed At Ventricular Rate 98 BPM [facility] Atrial Rate 98 BPM P-R Interval 134 ms QRS Duration 74 ms Q-T Interval 366 ms QTC Calculation(Bazett) 467 ms [employer] 23 degrees R [employer] 44 degrees [employer] 108 degrees Normal sinus rhythm Nonspecific ST and T wave abnormality Abnormal ECG When compared with ECG of 31-OCT-2016 15:56, Nonspecific T wave abnormality now evident in Inferior leads Confirmed by MD JUS, IHAB ([id number]) on 08/10/2018 9:49:29 PM Procedure Note Interface, External Ris In - 08/10/2018 9:49 PM CDT Ventricular Rate 98 BPM Atrial Rate 98 BPM P-R Interval 134 ms QRS Duration 74 ms Q-T Interval 366 ms QTC Calculation(Bazett) 467 ms [employer] 23 degrees R [employer] 44 degrees T [employer] 108 degrees Normal sinus rhythm Nonspecific ST and T wave abnormality Abnormal ECG When compared with ECG of 31-OCT-2016 15:56, Nonspecific T wave abnormality now evident in Inferior leads Confirmed by MD JUS, IHAB ([id number]) on 08/10/2018 9:49:29 PM Performing Organization Address City/State/Zipcode Phone Number [facility] * REPORT OF PROCEDURE - ENDOSCOPY URL (04/03/2018 4:19 PM CDT) Narrative Performed At * REPORT OF PROCEDURE - ENDOSCOPY URL (04/03/2018 4:10 PM CDT) Narrative Performed At * Tissue Exam (04/03/2018 2:56 PM CDT) Case Report Surgical Pathology [facility] Report [facility] Case: [id number] Authorizing Provider:Trever Das, Collected: 04/03/2018 1456 Ordering Location: [address] Received: 04/06/2018 0826 SERVICE Pathologist: Jarek Morrison MD Specimens: A) - Antrum, greater curveture B) - Antrum, lesser curve C) - Stomach, incisura D) - Stomach,Body, greater curvture E) - Stomach,Body, lesser curveture F) - Large Intestine, Colon - Right/Ascending, random r/o cmv G) - Large Intestine, Colon - Left/Descending, random r/o cmv H) - Polyp, Colon - Sigmoid, pseudo polyp I) - Rectum, r/o cmv DIAGNOSIS A. STOMACH, ANTRUM, GREATER [facility] CURVATURE, BIOPSY: [facility] - ANTRAL MUCOSA WITH CHRONIC INACTIVE GASTRITIS - NEGATIVE FOR HELICOBACTER PYLORI ORGANISMS - NEGATIVE FOR INTESTINAL METAPLASIA, DYSPLASIA, MALIGNANCY B. STOMACH, ANTRUM, LESSER CURVATURE, BIOPSY: - ANTRAL MUCOSA WITH ACUTE GASTRITIS AND INTESTINAL METAPLASIA - NEGATIVE FOR HELICOBACTER PYLORI ORGANISMS - NEGATIVE FOR DYSPLASIA, MALIGNANCY C. STOMACH, INCISURA, BIOPSY: - ANTRAL MUCOSA WITH CHRONIC INACTIVE GASTRITIS - NEGATIVE FOR HELICOBACTER PYLORI ORGANISMS - NEGATIVE FOR INTESTINAL METAPLASIA, DYSPLASIA, MALIGNANCY D. STOMACH, BODY, GREATER CURVATURE, BIOPSY: - OXYNTIC MUCOSA WITH NO SIGNIFICANT DIAGNOSTIC ABNORMALITY - NEGATIVE FOR HELICOBACTER PYLORI ORGANISMS - NEGATIVE FOR INTESTINAL METAPLASIA, DYSPLASIA, MALIGNANCY E. STOMACH, BODY, LESSER CURVATURE, BIOPSY: - OXYNTIC MUCOSA WITH NO SIGNIFICANT DIAGNOSTIC ABNORMALITY - NEGATIVE FOR HELICOBACTER PYLORI ORGANISMS - NEGATIVE FOR INTESTINAL METAPLASIA, DYSPLASIA, MALIGNANCY F. COLON, RIGHT/ASCENDING, RANDOM BIOPSIES: - MODERATE TO SEVERE CHRONIC ACTIVE COLITIS - POSITIVE FOR RARE CMV - NEGATIVE FOR GRANULOMAS, DYSPLASIA, MALIGNANCY G. COLON, LEFT/DESCENDING, RANDOM BIOPSIES: - MODERATE TO SEVERE CHRONIC ACTIVE COLITIS - NEGATIVE FOR CMV - NEGATIVE FOR GRANULOMAS, DYSPLASIA, MALIGNANCY H. COLON, SIGMOID PSEUDOPOLYP, BIOPSY: - INFLAMMATORY PSEUDOPOLYP - POSITIVE FOR RARE CMV - NEGATIVE FOR GRANULOMAS, DYSPLASIA, MALIGNANCY I. RECTUM, BIOPSY: - MODERATE TO SEVERE CHRONIC ACTIVE PROCTITIS - NEGATIVE FOR CMV - NEGATIVE FOR GRANULOMAS, DYSPLASIA, MALIGNANCY Signing Pathologist Direct Phone Line: [phone] COMMENT The biopsies show diffuse [facility] chronic active colitis which [facility] correlates with the endoscopic impression of inflammation extending from cecum to rectum (see colonoscopy report dated 04/03/18). The histologic findings are consistent with chronic inflammatory bowel disease. Rare CMV is identified by immunostain in right/ascending colon biopsies (specimen F). Around three viral inclusions were morphologically identified in the sigmoid inflammatory polyp (specimen H); however they are not present on the deeper level in the immunostain. Immunostain for CMV in the other colorectal biopsies (specimens G, I) are negative. Clinical and radiologic correlation is recommended. IDC: Dr. Perry concepcion. CPT Code(s) 85940u0 [facility] [id number] [facility] CLINICAL HISTORY Crohn's disease, rule out CMV [facility] SPECIMEN SOURCE A. Antrum greater curvature [facility] biopsy. B. Antrum lesser [facility] curvature biopsy. C. Incisura stomach biopsy. D. Stomach body greater curvature biopsy. E. Stomach body lesser curvature biopsy. F. Random right/ascending colon biopsy. G. Random left/descending colon biopsy. H. Sigmoid pseudopolyp. I. Rectum biopsy GROSS DESCRIPTION Specimen A: Received in [facility] formalin labeled "antrum", [facility] description "greater curvature" are two fragments measuring 0.2 and 0.5 cm in greatest dimension. Specimen is entirely submitted in A1. Specimen B: Received in formalin labeled "antrum", description "lesser curvature" are two fragments each measuring 0.2 cm in greatest dimension. Specimen is entirely submitted in B1. Specimen C: Received in formalin labeled "stomach", description "incisura" is a single fragment measuring 0.4 cm in greatest dimension. Specimen is entirely submitted in C1. Specimen D: Received in formalin labeled "stomach, body", description "greater curvature" are two fragments each measuring 0.3 cm in greatest dimension. Specimen is entirely submitted in D1. Specimen E: Received in formalin labeled "stomach, body", description "lesser curvature" are two fragments each measuring 0.2 cm in greatest dimension. Specimen is entirely submitted in E1. Specimen F: Received in formalin labeled "large intestine, colon right/ascending" are four fragments measuring 0.6 x 0.6 x 0.1 cm in aggregate. Specimen is entirely submitted in F1. Specimen G: Received in formalin labeled "large intestine, colon left/descending" are three fragments measuring 0.6 x 0.5 x 0.1 cm in aggregate. Specimen is entirely submitted in G1. Specimen H: Received in formalin labeled "polyp, colon sigmoid", description "pseudopolyp" is a single fragment measuring 0.2 cm in greatest dimension. Specimen is entirely submitted in H1. Specimen I: Received in formalin labeled "rectum" are three fragments measuring 0.6 x 0.6 x 0.1 cm in aggregate. Specimen is entirely submitted in I1. DB/ew MICROSCOPIC DESCRIPTION A-E. Immunostains for H.pylori [facility] are examined. [facility] F-I. Section shows multiple fragments of colonic mucosa, all of which are relatively uniformly involved by moderate to severe active inflammation characterized by cryptitis, crypt abscesses and focal surface erosions. Features of chronicity such as basal plasmacytosis and occasional crypt branching are seen. No definite paneth cell metaplasia is seen in the left colon biopsies. No granulomas are evident. Viral cytopathic changes are seen histologically in the sigmoid pseudopolyp. SPECIAL STUDIES The following special studies [facility] were performed on this case [facility] and the interpretation is incorporated in the diagnostic report above: The immunohistochemistry test was developed and its performance characteristics determined by [facility], Pathology Laboratory. It has not been cleared or approved by the U.S. Food and Drug Administration. The FDA has determined that such clearance or approval is not necessary. The test is used for clinical purposes. It should not be regarded as investigational or for research. This laboratory is certified under the Clinical Laboratory Improvement Amendments of 1988 (CLIA-88) as qualified to perform high complexity clinical laboratory testing. Specimen Tissue - Antrum Performing Organization Address [facility] Phone Number [address] * Calcium, Ionized (04/03/2018 4:15 AM CDT) Only the most recent of 2 results within the time period is included. Calcium, Ion 0.99 (L) 1.12 - 1.27 mmol/L [facility] pH, Blood 7.45 [facility] Specimen Blood - Arm, Left Performing Organization Address [facility] Phone Number [address] * Ova and Parasite Examination (04/02/2018 11:55 AM CDT) O&P Direct Smear Comment: Test not performed at No ova or parasites seen [facility]. See scanned report. [facility] O&P Concentrate Smear No ova or parasites seen No ova or parasites seen [facility] O&P Trichrome Smear No ova or parasites seen No ova or parasites seen [facility] Specimen Stool - Stool Narrative Performed At Performing Organization Address [facility] Phone Number [address] [address] [phone] [place] [address] * B-type Natriuretic Factor (BNP) (04/02/2018 5:12 AM CDT) BNP 155 (H) 0 - 100 pg/mL [facility] Specimen Blood - Arm, Left Performing Organization Address [facility] Phone Number [address] [address] [facility] * Comprehensive metabolic panel (04/01/2018 10:10 PM CDT) Protein, Total 7.1 6.0 - 8.3 gm/dL [facility] Albumin 3.4 (L) 3.5 - 5.0 g/dL [facility] Alkaline Phosphatase 66 40 - 150 U/L [facility] Total Bilirubin 0.1 (L) 0.2 - 1.2 mg/dL [facility] Sodium 138 136 - 145 meq/L [facility] Potassium 3.6 3.5 - 5.1 meq/L [facility] Chloride 107 98 - 107 meq/L [facility] CO2 23 22 - 29 meq/L [facility] BUN 10 7 - 21 mg/dL [facility] Creatinine 0.66 0.57 - 1.25 mg/dL [facility] Glucose 103 70 - 105 mg/dL [facility] Calcium 8.2 (L) 8.4 - 10.2 mg/dL [facility] AST 9 5 - 34 U/L [facility] ALT 6 6 - 55 U/L [facility] EGFR 88Comment: ESTIMATED GFR IS mL/min/1.73 sq m [facility] NOT ACCURATE CREATININE [facility] CLEARANCE IN PREDICTING GLOMERULAR FILTRATION RATE. ESTIMATED GFR IS NOT APPLICABLE FOR DIALYSIS PATIENTS. Specimen Blood - Central Venous Line Performing Organization Address City/State/Zipcode Phone Number [address] [phone] [facility] * Occult blood, stool (04/01/2018 10:05 PM CDT) Occult blood Positive (A) Negative [facility] Specimen Stool - Stool Performing Organization Address City/State/Zipcode Phone Number [facility] [address] [place], [place] [phone] [facility] * Fecal leukocytes (04/01/2018 10:05 PM CDT) Fecal Leukocytes 1+ Fecal leukocytes seen (A) No fecal leukocytes seen [facility] Specimen Stool - Stool Performing Organization Address City/State/Zipcode Phone Number [facility] [address] [place], [place] [phone] [facility] after 09/16/2017 Insurance Payer Benefit Subscriber ID Type Phone Address Plan / Group MEDICARE MEDICARE A xxxxxxxxxxx Medicare B MEDICAID MEDICAID xxxxxxxxx Medicaid OF [place] Advance Directives For more information, please contact: [address] [address] Date Inactivated Comments Code Status Date Activated 08/15/2018 4:51 PM Full Code 08/11/2018 5:29 AM This code status was determined by: Patient 04/04/2018 9:49 PM Full Code 04/01/2018 7:36 PM This code status was determined by: Patient
--- OUTSIDE RECORDS SUMMARY | 2018-09-17 14:52 | XMS REPORT ---
Author Author [facility] Address Unknown Phone Unavailable Care Team Providers Care Etcher Photoengraving Name Role Phone KYLAH BARBA Unavailable Unavailable Bing IRIZARRY Unavailable Unavailable Caleb SUNG Unavailable Unavailable Esther DESIR Unavailable Unavailable NATHANIEL ROQUE Unavailable Unavailable Problems This patient has no known problems. Allergies, Adverse Reactions, Alerts This patient has no known allergies or adverse reactions. Medications This patient has no known medications. Results Test Description Test Time Test Comments Text Results Atomic Results Result Comments FUNGUS CULTURE + SMEAR 2018-09-09 13:54:00 CULTURE (BEAKER) (test qkzj=7824) No fungus isolated in 28 days FUNGUS SMEAR (BEAKER) (test hffl=2937) No fungi seen STOOL CULTURE + SHIGA [id number] 10:04:00* Test Item Value Reference Range Comments CULTURE (BEAKER) (test fhrd=0046) No Salmonella, Shigella or Campylobacter isolated SPIN/CONCENTRATION [id number] 02:08:00* Test Item Value Reference Range Comments CONCENTRATION CHARGED (BEAKER) (test wlid=4252) Done CBC W/PLT COUNT & AUTO [id number] 13:22:00* Test Item Value Reference Range Comments WHITE BLOOD CELL COUNT (BEAKER) (test lghw=297) 7.3 K/ L 3.5-10.5 RED BLOOD CELL COUNT (BEAKER) (test zxle=889) 3.44 M/ L 3.93-5.22 HEMOGLOBIN (BEAKER) (test qwoo=906) 8.6 GM/DL 11.2-15.7 HEMATOCRIT (BEAKER) (test yfns=305) 28.5 % 34.1-44.9 MEAN CORPUSCULAR VOLUME (BEAKER) (test zgkv=863) 82.8 fL 79.4-94.8 MEAN CORPUSCULAR HEMOGLOBIN (BEAKER) (test xfur=130) 25.0 pg 25.6-32.2 MEAN CORPUSCULAR HEMOGLOBIN CONC (BEAKER) (test fnqs=877) 30.2 GM/DL 32.2-35.5 RED CELL DISTRIBUTION WIDTH (BEAKER) (test cwzg=396) 16.3 % 11.7-14.4 PLATELET COUNT (BEAKER) (test gufj=241) 451 K/CU MM 150-450 MEAN PLATELET VOLUME (BEAKER) (test cxnw=413) 9.0 fL 9.4-12.3 NUCLEATED RED BLOOD CELLS (BEAKER) (test ihnx=836) 0 /100 WBC 0-0 (CELLAVISION MANUAL DIFF)2018-08-15 13:22:00* Test Item Value Reference Range Comments NEUTROPHILS - REL (CELLAVISION)(BEAKER) (test kxyr=7572) 43 % LYMPHOCYTES - REL (CELLAVISION)(BEAKER) (test cobw=7913) 21 % MONOCYTES - REL (CELLAVISION)(BEAKER) (test jcxe=4115) 3 % EOSINOPHILS - REL (CELLAVISION)(BEAKER) (test muhe=9816) 4 % BASOPHILS - REL (CELLAVISION)(BEAKER) (test abpa=5812) 1 % BANDS - REL (CELLAVISION)(BEAKER) (test ypgg=9207) 29 % 0-10 NEUTROPHILS - ABS (CELLAVISION)(BEAKER) (test lqih=3078) 3.14 K/ul 1.56-6.13 LYMPHOCYTES - ABS (CELLAVISION)(BEAKER) (test inrh=0890) 1.53 K/ul 1.18-3.74 MONOCYTES - ABS (CELLAVISION)(BEAKER) (test sbeb=6609) 0.22 K/uL 0.24-0.36 EOSINOPHILS - ABS (CELLAVISION)(BEAKER) (test ruri=9530) 0.29 K/uL 0.04-0.36 BASOPHILS - ABS (CELLAVISION)(BEAKER) (test mpjl=0170) 0.07 K/uL 0.01-0.08 BANDS - ABS (CELLAVISION)(BEAKER) (test tkmd=1054) 2.12 K/uL 0.00-0.80 TOTAL COUNTED (BEAKER) (test pqnp=3147) 100 WBC MORPHOLOGY (BEAKER) (test eupi=268) Normal GIANT PLATELETS (BEAKER) (test zyuw=524) Present LARGE PLT(BEAKER) (test frng=8591) Present HYPOCHROMIA (BEAKER) (test loiv=347) 2+ moderate ANISOCYTOSIS (BEAKER) (test tmop=038) 2+ moderate MICROCYTES (BEAKER) (test hche=172) 1+ few MACROCYTES (BEAKER) (test qbin=805) 2+ moderate POIKILOCYTES (BEAKER) (test vxbv=983) 1+ few OVALOCYTES (BEAKER) (test cpcm=469) 1+ few TEAR DROP CELLS (BEAKER) (test ayaj=452) 1+ few ACANTHOCYTES (BEAKER) (test nskc=385) 1+ few ARTIFACT (CELLAVISION)(BEAKER) (test doti=9056) Present PLATELET CONCENTRATION (CELLAVISION)(BEAKER) (test ifnc=4000) Adequate Received comment: User comments: Slide comments: POCT-GLUCOSE [id number] 12:49:00* Test Item Value Reference Range Comments POC-GLUCOSE METER (BEAKER) (test qtak=7237) 143 mg/dL 70-110 TESTED AT [place] [address] SPUTUM CULTURE + GRAM [id number] 11:31:00* Test Item Value Reference Range Comments CULTURE (BEAKER) (test twcm=8456) 4+ Normal respiratory danny present GRAM STAIN RESULT (BEAKER) (test iyha=2017) 3+ WBCs GRAM STAIN RESULT (BEAKER) (test ioug=611515) 5-10 epithelial cells GRAM STAIN RESULT (BEAKER) (test aftw=033685) No organisms seen POCT-GLUCOSE [id number] 08:28:00* Test Item Value Reference Range Comments POC-GLUCOSE METER (BEAKER) (test vvcw=8868) 158 mg/dL 70-110 TESTED AT [place] [id number] [facility] [address] [id number] 07:04:00* Test Item Value Reference Range Comments MAGNESIUM (BEAKER) (test kglz=550) 2.0 mg/dL 1.6-2.6 BASIC METABOLIC [id number] 07:04:00* Test Item Value Reference Range Comments SODIUM (BEAKER) (test ogjy=783) 137 meq/L 136-145 POTASSIUM (BEAKER) (test zxgo=503) 4.1 meq/L 3.5-5.1 CHLORIDE (BEAKER) (test sagg=165) 110 meq/L 98-107 CO2 (BEAKER) (test wyet=769) 20 meq/L 22-29 BLOOD UREA NITROGEN (BEAKER) (test bmqf=213) 3 mg/dL 7-21 CREATININE (BEAKER) (test gzwx=230) 0.66 mg/dL 0.57-1.25 GLUCOSE RANDOM (BEAKER) (test bhcm=386) 114 mg/dL 70-105 CALCIUM (BEAKER) (test lleu=865) 8.3 mg/dL 8.4-10.2 EGFR (BEAKER) (test rubg=2352) 88 mL/min/1.73 sq m ESTIMATED GFR IS NOT ACCURATE CREATININE CLEARANCE IN PREDICTING GLOMERULAR FILTRATION RATE. ESTIMATED GFR IS NOT APPLICABLE FOR DIALYSIS PATIENTS. GI PATHOGEN PROFILE BY [id number] 06:17:00* Test Item Value Reference Range Comments CAMPYLOBACTER (PCR) (test hpgf=3737606) Not detected Not detected PLESIOMONAS SHIGELLOIDES (PCR) (test fuyv=8464901) Not detected Not detected SALMONELLA (PCR) (test irmg=4155161) Not detected Not detected YERSINIA ENTEROCOLITICA (PCR) (test jeai=7842685) Not detected Not detected VIBRIO CHOLERAE (PCR) (test dtft=5365446) Not detected Not detected ENTEROAGGREGATIVE E. COLI (EAEC) BY PCR (test orkm=0160059) Not detected Not detected ENTEROPATHOGENIC E. COLI (EPEC) BY PCR (test ttoy=9819695) Not detected Not detected ENTEROTOXIGENIC E. COLI (ETEC) LT/ST BY PCR (test kzlm=6284705) Not detected Not detected SHIGA-LIKE TOXIN-PRODUCING E. COLI (STEC) STX1/STX2 (test efll=3076250) Not detected Not detected E. COLI O157 (PCR) (test lmox=8614756) Not detected SHIGELLA/ENTEROINVASIVE E. COLI (EIEC) BY PCR (test agid=0559548) Not detected Not detected CRYPTOSPORIDIUM (PCR) (test cenm=2537953) Not detected Not detected CYCLOSPORA CAYETANENSIS (PCR) (test zmdg=5527909) Not detected Not detected ENTAMOEBA HISTOLYTICA (PCR) (test bptd=7146300) Not detected Not detected GIARDIA LAMBLIA (PCR) (test ghyp=8207148) Not detected Not detected ADENOVIRUS F 40/41 (PCR) (test jxhv=5301667) Not detected Not detected ASTROVIRUS (PCR) (test vbzw=7035443) Not detected Not detected NOROVIRUS GI/GII (PCR) (test iesc=9670860) Not detected Not detected ROTAVIRUS A (PCR) (test kivw=9468931) Not detected Not detected SAPOVIRUS (I, II, IV, V) BY PCR (test fcsb=9211912) Not detected Not detected VIBRIO (PARAHAEMOLYTICUS, VULNIFICUS) (test mwto=3998206) Not detected Not detected Other viruses, parasites and bacteria not targeted by this PCR panel cannot be e xcluded; therefore clinical correlation and follow up of serology, culture resul ts, and other molecular studies is required. The results are not intended to be used as the sole means for clinical diagnosis or patient management decisions. T his sample was tested at the [facility] using the Safe [employer] Gastrointestinal Panel. It is FDA cleared and has been verified and approved by the [facility] for clinical use. Thi s laboratory is CLIA-certified and [employer] ([employer])-accred ited to perform high complexity testing.POCT-GLUCOSE [id number] 21:31:00* Test Item Value Reference Range Comments POC-GLUCOSE METER (BEAKER) (test uwnw=4030) 135 mg/dL 70-[address] [facility] [address] [facility] [address] [address], CHEST, WITH HIGH RESOLUTION, INTERSTITAL LUNG [id number] 20:51:00 Reason for exam:->evaluate bronchiectasis / ABPA / NTMFINAL REPORT CLINICAL INDICATION: Sputum cultures positive for [...] is no evidence of air trapping. Pleural ef fusion: None. Pneumothorax: None. Tracheobronchial tree: No bronchiectasis is id entified. There is no significant peribronchial thickening. No endobronchial opa cification is noted. Pulmonary vasculature: No significant findings. Cardiac con tours and great vessels: Atherosclerotic calcification of the aorta. Left subcla vian ICD. Mediastinum: No significant findings. Lymph Nodes: No adenopathy in th e mediastinum or breanna. Skeleton: No acute abnormality. 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 Limited images of upper abdomen: No significant findings. IMPRESSION: No a cute or active cardiopulmonary abnormality. Specifically, no CT evidence of pulm onary fibrosis, bronchiectasis, air trapping or significant nodularity. Signed: Aron Fernandez Verified Date/Time: 08/14/2018 20:51:25 Reading Location : [address] Reading Room -GLUCOSE [id number] 15:41:00* Test Item Value Reference Range Comments POC-GLUCOSE METER (BEAKER) (test uttq=7443) 173 mg/dL 70-110 TESTED AT [place] [id number] [facility] [address] POCT-GLUCOSE [id number] 12:24:00* Test Item Value Reference Range Comments POC-GLUCOSE METER (BEAKER) (test rvnl=9203) 144 mg/dL 70-110 TESTED AT [place] [id number] [facility] [address] POCT-GLUCOSE [id number] 08:17:00* Test Item Value Reference Range Comments POC-GLUCOSE METER (BEAKER) (test dnkf=1493) 142 mg/dL 70-110 TESTED AT [address] [address] BASIC METABOLIC [id number] 08:00:00* Test Item Value Reference Range Comments SODIUM (BEAKER) (test akvr=802) 133 meq/L 136-145 POTASSIUM (BEAKER) (test xqur=863) 3.5 meq/L 3.5-5.1 CHLORIDE (BEAKER) (test fsem=415) 105 meq/L 98-107 CO2 (BEAKER) (test xjqf=933) 22 meq/L 22-29 BLOOD UREA NITROGEN (BEAKER) (test ocqt=960) 2 mg/dL 7-21 CREATININE (BEAKER) (test zieb=161) 0.69 mg/dL 0.57-1.25 GLUCOSE RANDOM (BEAKER) (test jcnb=182) 126 mg/dL 70-105 CALCIUM (BEAKER) (test ycsg=118) 8.7 mg/dL 8.4-10.2 EGFR (BEAKER) (test nlah=8955) 84 mL/min/1.73 sq m ESTIMATED GFR IS NOT ACCURATE CREATININE CLEARANCE IN PREDICTING GLOMERULAR FILTRATION RATE. ESTIMATED GFR IS NOT APPLICABLE FOR DIALYSIS PATIENTS. [id number] 07:55:00* Test Item Value Reference Range Comments MAGNESIUM (BEAKER) (test xgfc=049) 1.4 mg/dL 1.6-2.6 CBC W/PLT COUNT & AUTO [id number] 07:06:00* Test Item Value Reference Range Comments WHITE BLOOD CELL COUNT (BEAKER) (test ykuq=981) 7.7 K/ L 3.5-10.5 RED BLOOD CELL COUNT (BEAKER) (test awhj=064) 3.86 M/ L 3.93-5.22 HEMOGLOBIN (BEAKER) (test eald=306) 9.6 GM/DL 11.2-15.7 HEMATOCRIT (BEAKER) (test fdnl=133) 31.9 % 34.1-44.9 MEAN CORPUSCULAR VOLUME (BEAKER) (test bjlz=972) 82.6 fL 79.4-94.8 MEAN CORPUSCULAR HEMOGLOBIN (BEAKER) (test jceb=788) 24.9 pg 25.6-32.2 MEAN CORPUSCULAR HEMOGLOBIN CONC (BEAKER) (test uxoz=418) 30.1 GM/DL 32.2-35.5 RED CELL DISTRIBUTION WIDTH (BEAKER) (test pdhu=757) 16.2 % 11.7-14.4 PLATELET COUNT (BEAKER) (test gjxh=898) 539 K/CU MM 150-450 MEAN PLATELET VOLUME (BEAKER) (test doyf=345) 8.6 fL 9.4-12.3 NUCLEATED RED BLOOD CELLS (BEAKER) (test jheb=677) 0 /100 WBC 0-0 NEUTROPHILS RELATIVE PERCENT (BEAKER) (test icfj=071) 50 % LYMPHOCYTES RELATIVE PERCENT (BEAKER) (test ixyt=573) 33 % MONOCYTES RELATIVE PERCENT (BEAKER) (test ypsz=942) 8 % EOSINOPHILS RELATIVE PERCENT (BEAKER) (test gduu=111) 7 % BASOPHILS RELATIVE PERCENT (BEAKER) (test efsg=233) 1 % NEUTROPHILS ABSOLUTE COUNT (BEAKER) (test rcci=143) 3.83 K/ L 1.56-6.13 LYMPHOCYTES ABSOLUTE COUNT (BEAKER) (test ecua=131) 2.57 K/ L 1.18-3.74 MONOCYTES ABSOLUTE COUNT (BEAKER) (test rxtm=540) 0.64 K/ L 0.24-0.36 EOSINOPHILS ABSOLUTE COUNT (BEAKER) (test fwlu=350) 0.57 K/ L 0.04-0.36 BASOPHILS ABSOLUTE COUNT (BEAKER) (test kkne=298) 0.09 K/ L 0.01-0.08 IMMATURE GRANULOCYTES-RELATIVE PERCENT (BEAKER) (test graj=3111) 0 % 0-1 POCT-GLUCOSE [id number] 21:19:00* Test Item Value Reference Range Comments POC-GLUCOSE METER (BEAKER) (test nfkb=7051) 162 mg/dL 70-[address] [facility] [address] [facility] [address] POCT-GLUCOSE [id number] 17:57:00* Test Item Value Reference Range Comments POC-GLUCOSE METER (BEAKER) (test xupp=1444) 160 mg/dL 70-110 TESTED AT [address] [address] STOOL CULTURE + SHIGA [id number] 12:11:00* Test Item Value Reference Range Comments CULTURE (BEAKER) (test skao=0029) No Salmonella, Shigella or Campylobacter isolated HEPATIC FUNCTION [id number] 06:59:00* Test Item Value Reference Range Comments TOTAL PROTEIN (BEAKER) (test drco=809) 6.2 gm/dL 6.0-8.3 Specimen slightly hemolyzed ALBUMIN (BEAKER) (test lxty=0079) 2.8 g/dL 3.5-5.0 Specimen slightly hemolyzed BILIRUBIN TOTAL (BEAKER) (test euyo=739) 0.3 mg/dL 0.2-1.2 Specimen slightly hemolyzed BILIRUBIN DIRECT (BEAKER) (test abwx=616) 0.1 mg/dL 0.1-0.5 Specimen slightly hemolyzed ALKALINE PHOSPHATASE (BEAKER) (test mnkv=482) 68 U/L 40-150 AST (SGOT) (BEAKER) (test iaep=397) 12 U/L 5-34 Specimen slightly hemolyzed ALT (SGPT) (BEAKER) (test eksp=925) < U/L 6-55 Specimen slightly hemolyzed [id number] 06:48:00* Test Item Value Reference Range Comments MAGNESIUM (BEAKER) (test nicc=845) 1.6 mg/dL 1.6-2.6 Specimen slightly hemolyzed [id number] 06:48:00* Test Item Value Reference Range Comments PHOSPHORUS (BEAKER) (test ybkj=295) 3.0 mg/dL 2.3-4.7 Specimen slightly hemolyzed BASIC METABOLIC [id number] 06:48:00* Test Item Value Reference Range Comments SODIUM (BEAKER) (test wxfl=489) 141 meq/L 136-145 POTASSIUM (BEAKER) (test ukoy=310) 4.0 meq/L 3.5-5.1 Specimen slightly hemolyzed CHLORIDE (BEAKER) (test hahz=648) 116 meq/L 98-107 CO2 (BEAKER) (test qzfj=269) 19 meq/L 22-29 BLOOD UREA NITROGEN (BEAKER) (test jrnl=462) 2 mg/dL 7-21 CREATININE (BEAKER) (test ixad=266) 0.58 mg/dL 0.57-1.25 Specimen slightly hemolyzed GLUCOSE RANDOM (BEAKER) (test dvdh=963) 75 mg/dL 70-105 CALCIUM (BEAKER) (test pmyx=186) 8.5 mg/dL 8.4-10.2 EGFR (BEAKER) (test hffz=0733) 102 mL/min/1.73 sq m ESTIMATED GFR IS NOT ACCURATE CREATININE CLEARANCE IN PREDICTING GLOMERULAR FILTRATION RATE. ESTIMATED GFR IS NOT APPLICABLE FOR DIALYSIS PATIENTS. CBC W/PLT COUNT & AUTO [id number] 06:23:00* Test Item Value Reference Range Comments WHITE BLOOD CELL COUNT (BEAKER) (test zpnd=082) 5.8 K/ L 3.5-10.5 RED BLOOD CELL COUNT (BEAKER) (test fchz=159) 3.79 M/ L 3.93-5.22 HEMOGLOBIN (BEAKER) (test mxbu=692) 9.5 GM/DL 11.2-15.7 HEMATOCRIT (BEAKER) (test fxyx=008) 32.0 % 34.1-44.9 MEAN CORPUSCULAR VOLUME (BEAKER) (test uain=976) 84.4 fL 79.4-94.8 MEAN CORPUSCULAR HEMOGLOBIN (BEAKER) (test xpek=967) 25.1 pg 25.6-32.2 MEAN CORPUSCULAR HEMOGLOBIN CONC (BEAKER) (test mrpu=979) 29.7 GM/DL 32.2-35.5 RED CELL DISTRIBUTION WIDTH (BEAKER) (test ulhl=455) 16.2 % 11.7-14.4 PLATELET COUNT (BEAKER) (test misc=660) 457 K/CU MM 150-450 MEAN PLATELET VOLUME (BEAKER) (test qlee=145) 10.0 fL 9.4-12.3 NUCLEATED RED BLOOD CELLS (BEAKER) (test fgsn=614) 0 /100 WBC 0-0 NEUTROPHILS RELATIVE PERCENT (BEAKER) (test lrwe=517) 41 % LYMPHOCYTES RELATIVE PERCENT (BEAKER) (test nari=908) 32 % MONOCYTES RELATIVE PERCENT (BEAKER) (test qtfu=893) 10 % EOSINOPHILS RELATIVE PERCENT (BEAKER) (test esgj=372) 16 % BASOPHILS RELATIVE PERCENT (BEAKER) (test sfbg=521) 1 % NEUTROPHILS ABSOLUTE COUNT (BEAKER) (test uouk=795) 2.36 K/ L 1.56-6.13 LYMPHOCYTES ABSOLUTE COUNT (BEAKER) (test hqer=422) 1.83 K/ L 1.18-3.74 MONOCYTES ABSOLUTE COUNT (BEAKER) (test ahec=638) 0.55 K/ L 0.24-0.36 EOSINOPHILS ABSOLUTE COUNT (BEAKER) (test zlmp=975) 0.92 K/ L 0.04-0.36 BASOPHILS ABSOLUTE COUNT (BEAKER) (test vfcz=885) 0.08 K/ L 0.01-0.08 IMMATURE GRANULOCYTES-RELATIVE PERCENT (ELISEOAKER) (test cxaa=0453) 0 % 0-1 POCT-GLUCOSE [id number] 21:26:00* Test Item Value Reference Range Comments POC-GLUCOSE METER (BEAKER) (test ifoq=8658) 156 mg/dL 70-110 TESTED AT [address] [address] CMV PCR, [id number] 15:51:00* Test Item Value Reference Range Comments CMV VIRAL LOAD - NEGATIVE (BEAKER) (test noox=2601) Negative or below the linear range of the assay (<375 copies/mL) Cytomegalovirus (CMV) infection can cause significant disease in immunosuppresse d patients. However, it is common for CMV to manifest as a limited infection whi ch is of no clinical significance in immunosuppressed patients or in healthy ind ividuals.Viral load measurements are helpful to identify clinical CMV infection and to guide the pre-emptive management of antiviral therapy. For treatment of CMV infection due to reactivation in transplant recipients, a threshold between 4,000 and 5,000 copies/mL is suggested. For treatment of primary CMV infection, a lower threshold can be used.CMV infection may also be monitored using weekly serial measurements. Serial measurements of CMV DNA viral load can be evaluated by identifying a 10-fold change, as well as assessing the CMV DNA viral load and the clinical context for each patient.The plasma CMV DNA viral load was detected using quantitative polymerase chain reaction and fluorescent monitoring of a s pecific hybridized probe. Genetic variation and other factors can affect the acc uracy of nucleic acid testing. Therefore, the results should be interpreted in l ight of clinical data. A negative result may not exclude the presence of CMV dis ease.This test was developed and its performance characteristics determined by vanessa mehta [facility] Pathology Department, Section of Molecular Patholog y. It has not been cleared or approved by the U.S. Food and Drug Administration (FDA), since FDA approval is not required for clinical use of the test. Validati on was done as required by The Clinical Laboratory Improvement Amendments of 198 8.POCT-GLUCOSE [id number] 15:06:00* Test Item Value Reference Range Comments POC-GLUCOSE METER (BEAKER) (test tkrl=0190) 167 mg/dL 70-110 TESTED AT [place] [address] SHIGA TOXIN [id number] 14:16:00* Test Item Value Reference Range Comments SHIGA TOXIN 1 (BEAKER) (test qeex=4261) Not detected Not detected SHIGA TOXIN 2 (BEAKER) (test jdon=8739) Not detected Not detected POCT-GLUCOSE [id number] 11:17:00* Test Item Value Reference Range Comments POC-GLUCOSE METER (BEAKER) (test afui=9731) 101 mg/dL 70-110 TESTED AT [place] [address] STOOL PATH [id number] 10:05:00* Test Item Value Reference Range Comments PATHOGEN EXAM CHARGED (BEAKER) (test jigr=7892) Done STOOL PATH [id number] 09:46:00* Test Item Value Reference Range Comments PATHOGEN EXAM CHARGED (BEAKER) (test xnmw=6020) Done POCT-GLUCOSE [id number] 08:20:00* Test Item Value Reference Range Comments POC-GLUCOSE METER (BEAKER) (test bnjw=3901) 119 mg/dL 70-110 TESTED AT [place] [address] [id number] 05:13:00* Test Item Value Reference Range Comments PHOSPHORUS (BEAKER) (test hxaj=225) 3.0 mg/dL 2.3-4.7 [id number] 05:13:00* Test Item Value Reference Range Comments MAGNESIUM (BEAKER) (test tfdi=206) 1.6 mg/dL 1.6-2.6 BASIC METABOLIC [id number] 05:13:00* Test Item Value Reference Range Comments SODIUM (BEAKER) (test zpuf=146) 137 meq/L 136-145 POTASSIUM (BEAKER) (test iltl=178) 3.7 meq/L 3.5-5.1 CHLORIDE (BEAKER) (test mjms=100) 113 meq/L 98-107 CO2 (BEAKER) (test zcsh=347) 17 meq/L 22-29 BLOOD UREA NITROGEN (BEAKER) (test etoo=213) 3 mg/dL 7-21 CREATININE (BEAKER) (test rckb=608) 0.60 mg/dL 0.57-1.25 GLUCOSE RANDOM (BEAKER) (test ejui=899) 74 mg/dL 70-105 CALCIUM (BEAKER) (test zzok=057) 8.2 mg/dL 8.4-10.2 EGFR (BEAKER) (test nwjj=5501) 99 mL/min/1.73 sq m ESTIMATED GFR IS NOT ACCURATE CREATININE CLEARANCE IN PREDICTING GLOMERULAR FILTRATION RATE. ESTIMATED GFR IS NOT APPLICABLE FOR DIALYSIS PATIENTS. HEPATIC FUNCTION [id number] 05:13:00* Test Item Value Reference Range Comments TOTAL PROTEIN (BEAKER) (test rasx=092) 6.2 gm/dL 6.0-8.3 ALBUMIN (BEAKER) (test cxuc=7921) 2.8 g/dL 3.5-5.0 BILIRUBIN TOTAL (BEAKER) (test sktq=738) 0.3 mg/dL 0.2-1.2 BILIRUBIN DIRECT (BEAKER) (test qjhf=976) 0.1 mg/dL 0.1-0.5 ALKALINE PHOSPHATASE (BEAKER) (test aqnl=801) 73 U/L 40-150 AST (SGOT) (BEAKER) (test rluj=644) 9 U/L 5-34 ALT (SGPT) (BEAKER) (test veqg=130) < U/L 6-55 CBC W/PLT COUNT & AUTO [id number] 04:54:00* Test Item Value Reference Range Comments WHITE BLOOD CELL COUNT (BEAKER) (test pyke=791) 6.6 K/ L 3.5-10.5 RED BLOOD CELL COUNT (BEAKER) (test vdkr=997) 3.70 M/ L 3.93-5.22 HEMOGLOBIN (BEAKER) (test qwsp=009) 9.2 GM/DL 11.2-15.7 HEMATOCRIT (BEAKER) (test ybwm=289) 31.1 % 34.1-44.9 MEAN CORPUSCULAR VOLUME (BEAKER) (test gwnf=065) 84.1 fL 79.4-94.8 MEAN CORPUSCULAR HEMOGLOBIN (BEAKER) (test ofmi=406) 24.9 pg 25.6-32.2 MEAN CORPUSCULAR HEMOGLOBIN CONC (BEAKER) (test dsaj=838) 29.6 GM/DL 32.2-35.5 RED CELL DISTRIBUTION WIDTH (BEAKER) (test pcts=825) 15.9 % 11.7-14.4 PLATELET COUNT (BEAKER) (test zpgh=016) 500 K/CU MM 150-450 MEAN PLATELET VOLUME (BEAKER) (test sckf=709) 8.9 fL 9.4-12.3 NUCLEATED RED BLOOD CELLS (BEAKER) (test nxyy=793) 0 /100 WBC 0-0 NEUTROPHILS RELATIVE PERCENT (BEAKER) (test sycd=363) 53 % LYMPHOCYTES RELATIVE PERCENT (BEAKER) (test uxzp=561) 25 % MONOCYTES RELATIVE PERCENT (BEAKER) (test jqst=696) 9 % EOSINOPHILS RELATIVE PERCENT (BEAKER) (test uaex=476) 11 % BASOPHILS RELATIVE PERCENT (BEAKER) (test uhpd=545) 2 % NEUTROPHILS ABSOLUTE COUNT (BEAKER) (test zrlx=698) 3.49 K/ L 1.56-6.13 LYMPHOCYTES ABSOLUTE COUNT (BEAKER) (test wtwo=786) 1.64 K/ L 1.18-3.74 MONOCYTES ABSOLUTE COUNT (BEAKER) (test qedu=236) 0.60 K/ L 0.24-0.36 EOSINOPHILS ABSOLUTE COUNT (BEAKER) (test mpct=849) 0.73 K/ L 0.04-0.36 BASOPHILS ABSOLUTE COUNT (BEAKER) (test uzlv=058) 0.11 K/ L 0.01-0.08 IMMATURE GRANULOCYTES-RELATIVE PERCENT (BEAKER) (test rsls=9999) 0 % 0-1 POCT-GLUCOSE [id number] 18:06:00* Test Item Value Reference Range Comments POC-GLUCOSE METER (BEAKER) (test hwgi=4616) 111 mg/dL 70-[address] [facility] [address] [address] C. DIFFICILE GDH [id number] 10:53:00* Test Item Value Reference Range Comments CDT TOXIN (test bdzg=[id number]) Negative Negative CDT GDH ANTIGEN (test hsna=[id number]) Negative Negative No indication of Clostridium difficile infection and no colonization. Discontinue enteric isolation and therapy. Testing performed by [employer] Rapid Cassette Assay. For GDH, published sensitivity of the assay is 98.7% compared to cytotoxicity testing. For Toxin AB, published sensitivity is 87.8% and specificity 99.4% compared to cytotoxicity testing.Ve rification of kit performance was done by the [facility] prior to cl inical use.TSH/FREE T4 IF [id number] 10:23:00* Test Item Value Reference Range Comments THYROID STIMULATING HORMONE (BEAKER) (test dtzo=612) 3.52 uIU/mL 0.35-4.94 [id number] 10:17:00* Test Item Value Reference Range Comments PHOSPHORUS (BEAKER) (test htxx=871) 3.1 mg/dL 2.3-4.7 [id number] 10:17:00* Test Item Value Reference Range Comments MAGNESIUM (BEAKER) (test oznx=466) 2.1 mg/dL 1.6-2.6 BASIC METABOLIC [id number] 10:17:00* Test Item Value Reference Range Comments SODIUM (BEAKER) (test chsl=912) 135 meq/L 136-145 POTASSIUM (BEAKER) (test lvhp=146) 3.7 meq/L 3.5-5.1 CHLORIDE (BEAKER) (test puhu=002) 109 meq/L 98-107 CO2 (BEAKER) (test opbk=466) 21 meq/L 22-29 BLOOD UREA NITROGEN (BEAKER) (test wfql=547) 5 mg/dL 7-21 CREATININE (BEAKER) (test ovxx=727) 0.68 mg/dL 0.57-1.25 GLUCOSE RANDOM (BEAKER) (test lsul=344) 92 mg/dL 70-105 CALCIUM (BEAKER) (test rcri=574) 8.9 mg/dL 8.4-10.2 EGFR (BEAKER) (test prri=5246) 85 mL/min/1.73 sq m ESTIMATED GFR IS NOT ACCURATE CREATININE CLEARANCE IN PREDICTING GLOMERULAR FILTRATION RATE. ESTIMATED GFR IS NOT APPLICABLE FOR DIALYSIS PATIENTS. LIPID [id number] 10:17:00* Test Item Value Reference Range Comments TRIGLYCERIDES (BEAKER) (test erlu=568) 71 mg/dL CHOLESTEROL (BEAKER) (test miui=564) 131 mg/dL HDL CHOLESTEROL (BEAKER) (test rzto=875) 55 mg/dL LDL CHOLESTEROL CALCULATED (BEAKER) (test nofv=529) 62 mg/dL Triglyceride Reference Range: Low Risk <150 Borderline 150-199 High Risk 200-499 Very High Risk >=500Cholesterol Reference Range: Low Risk <200 Borderline 200-239 High Risk >240HDL Cholesterol Reference Range: Low Risk >=60 High Risk <40LDL Cholesterol Reference Range: Optimal <100 Near Optimal 100-129 Borderline 130-159 High 160-189 Very High >=190 HEPATIC FUNCTION [id number] 10:17:00* Test Item Value Reference Range Comments TOTAL PROTEIN (BEAKER) (test urzq=870) 7.7 gm/dL 6.0-8.3 ALBUMIN (BEAKER) (test giez=9809) 3.5 g/dL 3.5-5.0 BILIRUBIN TOTAL (BEAKER) (test jsah=385) 0.4 mg/dL 0.2-1.2 BILIRUBIN DIRECT (BEAKER) (test ohik=091) 0.2 mg/dL 0.1-0.5 ALKALINE PHOSPHATASE (BEAKER) (test leem=111) 89 U/L 40-150 AST (SGOT) (BEAKER) (test xegg=424) 10 U/L 5-34 ALT (SGPT) (BEAKER) (test jwpb=037) 6 U/L 6-55 C-REACTIVE [id number] 10:17:00* Test Item Value Reference Range Comments C-REACTIVE PROTEIN (BEAKER) (test ahvh=832) 3.20 mg/dL 0.00-0.50 HEMOGLOBIN [id number] 08:34:00* Test Item Value Reference Range Comments HEMOGLOBIN A1C (BEAKER) (test ktis=532) 5.8 % 4.3-6.1 CT, [id number] 23:52:00FINAL REPORT CT, ABDOMEN \\T\\ PELVIS, WITH IV CONTRAST INDICATION: IBD, worsening diarrhea and pain COMPARISON: None TECHNIQUE:Post contrast abdomen and pelvis CT. Coronal and sagittal reformatted images obtained. DOSE REDUCTION: Dose modulation, iterative reconstruction, and/or weight-based adjustment of the mA/kV was utilized to reduce the radiation dose to as low as reasonably achievable. FINDINGS: Lower thorax: Visible airspaces clear. No effusion. Liver: No parenchymal abnormality.Gallbladder and biliary tree: Prior cholecystectomy. Mild central biliary ductal prominence.Pancreas: No acute findings.Spleen: No acute findingsAdrenal Glands: No acute findings.Kidneys and ureters: No hy dronephrosis or nephrolithiasis.Bladder and reproductive organs: Unremarkable. S tomach and Duodenum: No significant findings.Small and large intestine: Small naz wel caliber is normal. Mural thickening is noted to affecting nearly the entire colon. No pneumatosis is present.Appendix: The appendix is not identified. No pe ricecal inflammatory changes are present. Major vascular structures: Normal aort ic caliber.Peritoneum and retroperitoneum: No free air, fluid or adenopathy. Skeleton: Shallow dextroconvex scoliosis of the thoracolumbar spine with associ ated endplate degenerative changes.Additional findings: None. IMPRESSION: Mural thickening throughout the colon compatible with provided history of inflammatory bowel disease. No pneumatosis or bowel obstruction. Signed: JR Zuniga Robert MDReport Verified Date/Time: 08/10/2018 23:52:19 Reading Location: [address] Reading Room Electronically signed by: ZHANG NARAYAN [facility] on 08/10/2018 11:52 PM URINALYSIS W/ [id number] 23:38:00* Test Item Value Reference Range Comments COLOR (BEAKER) (test slac=240) Colorless CLARITY (BEAKER) (test sccn=023) Clear SPECIFIC GRAVITY UA (BEAKER) (test vyvz=708) 1.003 1.001-1.035 PH UA (BEAKER) (test edhz=549) 5.0 5.0-8.0 PROTEIN UA (BEAKER) (test vcdi=683) Negative Negative GLUCOSE UA (BEAKER) (test yply=709) Negative Negative KETONES UA (BEAKER) (test icyc=156) Negative Negative BILIRUBIN UA (BEAKER) (test yrpx=134) Negative Negative BLOOD UA (BEAKER) (test uval=957) Negative Negative NITRITE UA (BEAKER) (test zraa=193) Negative Negative LEUKOCYTE ESTERASE UA (BEAKER) (test ntdm=536) Negative Negative UROBILINOGEN UA (BEAKER) (test lfiw=923) 0.2 mg/dL 0.2-1.0 RBC UA (BEAKER) (test swjb=568) < /HPF WBC UA (BEAKER) (test nfny=181) 1 /HPF BACTERIA (BEAKER) (test pvrj=128) Rare MUCUS (BEAKER) (test imgg=6303) Rare SQUAMOUS EPITHELIAL (BEAKER) (test dlke=037) < /HPF SOURCE(BEAKER) (test ebcd=4665) Urine, Voided [id number] 21:02:00* Test Item Value Reference Range Comments LIPASE (BEAKER) (test nepk=191) 67 U/L 8-78 [id number] 21:02:00* Test Item Value Reference Range Comments AMYLASE (BEAKER) (test jlfs=130) 133 U/L 25-125 BASIC METABOLIC [id number] 21:02:00* Test Item Value Reference Range Comments SODIUM (BEAKER) (test ryvi=332) 131 meq/L 136-145 POTASSIUM (BEAKER) (test qowi=020) 4.4 meq/L 3.5-5.1 CHLORIDE (BEAKER) (test ibct=693) 103 meq/L 98-107 CO2 (BEAKER) (test oaxd=056) 20 meq/L 22-29 BLOOD UREA NITROGEN (BEAKER) (test voml=159) 11 mg/dL 7-21 CREATININE (BEAKER) (test irts=083) 0.71 mg/dL 0.57-1.25 GLUCOSE RANDOM (BEAKER) (test gpvc=072) 101 mg/dL 70-105 CALCIUM (BEAKER) (test mrff=921) 8.6 mg/dL 8.4-10.2 EGFR (BEAKER) (test grhr=7886) 81 mL/min/1.73 sq m ESTIMATED GFR IS NOT ACCURATE CREATININE CLEARANCE IN PREDICTING GLOMERULAR FILTRATION RATE. ESTIMATED GFR IS NOT APPLICABLE FOR DIALYSIS PATIENTS. HEPATIC FUNCTION [id number] 21:02:00* Test Item Value Reference Range Comments TOTAL PROTEIN (BEAKER) (test asdq=145) 7.8 gm/dL 6.0-8.3 ALBUMIN (BEAKER) (test npaf=5224) 3.6 g/dL 3.5-5.0 BILIRUBIN TOTAL (BEAKER) (test mdib=803) 0.1 mg/dL 0.2-1.2 BILIRUBIN DIRECT (BEAKER) (test uibc=818) 0.1 mg/dL 0.1-0.5 ALKALINE PHOSPHATASE (BEAKER) (test lnkp=883) 89 U/L 40-150 AST (SGOT) (BEAKER) (test kaed=670) 8 U/L 5-34 ALT (SGPT) (BEAKER) (test ndrp=415) 6 U/L 6-55 CBC W/PLT COUNT & AUTO [id number] 20:49:00* Test Item Value Reference Range Comments WHITE BLOOD CELL COUNT (BEAKER) (test msio=456) 8.2 K/ L 3.5-10.5 RED BLOOD CELL COUNT (BEAKER) (test lhnl=802) 3.98 M/ L 3.93-5.22 HEMOGLOBIN (BEAKER) (test yfue=691) 10.0 GM/DL 11.2-15.7 HEMATOCRIT (BEAKER) (test oivk=893) 32.6 % 34.1-44.9 MEAN CORPUSCULAR VOLUME (BEAKER) (test dhwf=891) 81.9 fL 79.4-94.8 MEAN CORPUSCULAR HEMOGLOBIN (BEAKER) (test ewks=287) 25.1 pg 25.6-32.2 MEAN CORPUSCULAR HEMOGLOBIN CONC (BEAKER) (test ivit=530) 30.7 GM/DL 32.2-35.5 RED CELL DISTRIBUTION WIDTH (BEAKER) (test jkik=069) 15.4 % 11.7-14.4 PLATELET COUNT (BEAKER) (test jgdw=615) 618 K/CU MM 150-450 MEAN PLATELET VOLUME (BEAKER) (test qdmt=145) 8.5 fL 9.4-12.3 NUCLEATED RED BLOOD CELLS (BEAKER) (test swri=459) 0 /100 WBC 0-0 NEUTROPHILS RELATIVE PERCENT (BEAKER) (test oeqm=053) 50 % LYMPHOCYTES RELATIVE PERCENT (BEAKER) (test hsbf=009) 30 % MONOCYTES RELATIVE PERCENT (BEAKER) (test hpgp=526) 9 % EOSINOPHILS RELATIVE PERCENT (BEAKER) (test etkr=792) 9 % BASOPHILS RELATIVE PERCENT (BEAKER) (test cbpg=609) 2 % NEUTROPHILS ABSOLUTE COUNT (BEAKER) (test vqmf=350) 4.06 K/ L 1.56-6.13 LYMPHOCYTES ABSOLUTE COUNT (BEAKER) (test exuv=851) 2.46 K/ L 1.18-3.74 MONOCYTES ABSOLUTE COUNT (BEAKER) (test evbh=269) 0.77 K/ L 0.24-0.36 EOSINOPHILS ABSOLUTE COUNT (BEAKER) (test qlud=594) 0.71 K/ L 0.04-0.36 BASOPHILS ABSOLUTE COUNT (BEAKER) (test boqc=451) 0.15 K/ L 0.01-0.08 IMMATURE GRANULOCYTES-RELATIVE PERCENT (BEAKER) (test nvgi=2670) 0 % 0-1 CHEST SINGLE (PORTABLE)2018-04-21 08:26:00 [place] [address] Patient Name: JASIEL CHARLES MR #: [id number] : 1945 Age/Sex: 72/F Req #: [id number] Adm Physician: Ordered by: HOPE IRIZARRY MD Report #: [id number] Location: ER Room/Bed: Procedure: [id number] DX/CHEST SINGLE (PORTABLE) Exam Date: 04/21/18 Exam Time: [address] ATUS: Signed PROCEDURE: CHEST SINGLE (PORTABLE) COMPARISON: Cervical spine radiographs 03/04/2017. INDICATIONS: SHORTNESS OF BREATH, WEAKNESS FINDING S: Interval placement of a left subclavian approach implantable cardiac device. The device body projects over the left midlung. The lungs are well-inflated and without focal consolidation, pleural effusion, or pneumotho rax. Tortuosity of the thoracic aorta with otherwise normal heart size. No ov ert pulmonary edema. No acute osseous abnormalities. Bilateral acromioclav icular and glenohumeral degenerative joint disease with a high riding right humeral head likely related to chronic rotator cuff tear. Surgical clips along the right chest wall and projecting over the right lower lung. Surgical clips projecting over the right upper quadrant of the abdomen likely related to prior cholecystectomy. CONCLUSION: No acute cardiopulmonary abno rmality. Dictated by: Laci Price M.D. on 04/21/2018 at 8:26 Elect ronically approved by: Laci Price M.D. on 04/21/2018 at 8:26 Dic tated By: LACI PRICE MD 5 COPY TO: HOPE IRIZARRY MD TISSUE [id number] 17:39:00Surgical Pathology Report Case: [id number] Authorizing Provider: Trever Das, Collected: 04/03/2018 1456 Ordering Location: [address] Received: 04/06/2018 08 SERVICE Pathologist: Jarek Morrison MD Specimens: A) - Antrum, greater curveture B) - Antrum, lesser curve C) - Stomach, incisura D) - Stomach, Body, greater curvture E) - Stomach, Body, lesser curveture F) - Large Intestine, Colon - Right/Ascending, random r/o cmv G) - Large Intestine, Colon - Left/Descending, random r/o cmv H) - Polyp, Colon - Sigmoid, pseudo polyp I) - Rectum, r/o cmv A. STOMACH, ANTRUM, GREATER CURVATURE, BIOPSY: - ANTRAL MUCOSA WITH CHRONIC INACTIVE GASTRITIS - NEGATIVE FOR HELICOBACTER PYLORI ORGANISMS - NEGATIVE FOR INTESTINAL METAPLASIA, DYSPLASIA, MALIGNANCYB. STOMACH, ANTRUM, LESSER CURVATURE, BIOPSY: - ANTRAL MUCOSA WITH ACUTE GASTRITIS AND INTESTINAL METAPLASIA - NEGATIVE FOR HELICOBACTER PYLORI ORGANISMS - NEGATIVE FOR DYSPLASIA, MALIGNANCYC. STOMACH, INCISURA, BIOPSY: - ANTRAL MUCOSA WITH CHRONIC INACTIVE GASTRITIS - NEGATIVE FOR HELICOBACTER PYLORI ORGANISMS - NEGATIVE FOR INTESTINAL METAPLASIA, DYSPLASIA, MALIGNANCYD. STOMACH, BODY, GREATER CURVATURE, BIOPSY: - OXYNTIC MUCOSA WITH NO SIGNIFICANT DIAGNOSTIC ABNORMALITY - NEGATIVE FOR HELICOBACTER PYLORI ORGANISMS - NEGATIVE FOR INTESTINAL METAPLASIA, DYSPLASIA, MALIGNANCYE. STOMACH, BODY, LESSER CURVATURE, BIOPSY: - OXYNTIC MUC NATHANAEL WITH NO SIGNIFICANT DIAGNOSTIC ABNORMALITY - NEGATIVE FOR HELICOBACTER PYLO RI ORGANISMS - NEGATIVE FOR INTESTINAL METAPLASIA, DYSPLASIA, MALIGNANCYF. COLO N, RIGHT/ASCENDING, RANDOM BIOPSIES: - MODERATE TO SEVERE CHRONIC ACTIVE COLIT IS - POSITIVE FOR RARE CMV - NEGATIVE FOR GRANULOMAS, DYSPLASIA, MALIGNANCYG . COLON, LEFT/DESCENDING, RANDOM BIOPSIES: - MODERATE TO SEVERE CHRONIC ACTIVE COLITIS - NEGATIVE FOR CMV - NEGATIVE FOR GRANULOMAS, DYSPLASIA, MALIGNANCY H. COLON, SIGMOID PSEUDOPOLYP, BIOPSY: - INFLAMMATORY PSEUDOPOLYP - POSITIVE F OR RARE CMV - NEGATIVE FOR GRANULOMAS, DYSPLASIA, MALIGNANCYI. RECTUM, BIOPSY: - MODERATE TO SEVERE CHRONIC ACTIVE PROCTITIS - NEGATIVE FOR CMV - NEGATIVE FOR GRANULOMAS, DYSPLASIA, MALIGNANCY Signing Pathologist Direct Phone Tigist e: [phone] signed by Jarek Morrison MD on 04/09/2018 at 5:39 PMThe biopsies show diffuse chronic active colitis which correlates with the endoscopic impression of inflammation extending from cecum to rectum (see co lonoscopy report dated 04/03/18). 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 Rare CMV is identified by immunostain in right/a scending colon biopsies (specimen F). Around three viral inclusions were morphol ogically identified in the sigmoid inflammatory polyp (specimen H); however they are not present on the deeper level in the immunostain. Immunostain for CMV in the other colorectal biopsies (specimens G, I) are negative. Clinical and radio logic correlation is recommended.IDC: Dr. Perry concepcion.[id number]'s disease, rule out CMV A. Antrum greater curvature biopsy. B. Antrum lesser curva ture biopsy. C. Incisura stomach biopsy. D. Stomach body greater curvature biops y. E. Stomach body lesser curvature biopsy. F. Random right/ascending colon biop sy. G. Random left/descending colon biopsy. H. Sigmoid pseudopolyp. I. Rectum bi opsySpecimen A: Received in formalin labeled "antrum", description "greater curv ature" are two fragments measuring 0.2 and 0.5 cm in greatest dimension. Specime n is entirely submitted in A1. Specimen B: Received in formalin labeled "antrum" , description "lesser curvature" are two fragments each measuring 0.2 cm in grea test dimension. Specimen is entirely submitted in B1.Specimen C: Received in for sangita labeled "stomach", description "incisura" is a single fragment measuring 0 .4 cm in greatest dimension. Specimen is entirely submitted in C1. Specimen D: R eceived in formalin labeled "stomach, body", description "greater curvature" are two fragments each measuring 0.3 cm in greatest dimension. Specimen is entirely submitted in D1.Specimen E: Received in formalin labeled "stomach, body", descr iption "lesser curvature" are two fragments each measuring 0.2 cm in greatest di mension. Specimen is entirely submitted in E1.Specimen F: Received in formalin l abeled "large intestine, colon right/ascending" are four fragments measuring 0.6 x 0.6 x 0.1 cm in aggregate. Specimen is entirely submitted in F1.Specimen G: R eceived in formalin labeled "large intestine, colon left/descending" are three f ragments measuring 0.6 x 0.5 x 0.1 cm in aggregate. Specimen is entirely submitt ed in G1.Specimen H: Received in formalin labeled "polyp, colon sigmoid", descri ption "pseudopolyp" is a single fragment measuring 0.2 cm in greatest dimension. Specimen is entirely submitted in H1.Specimen I: Received in formalin labeled " rectum" are three fragments measuring 0.6 x 0.6 x 0.1 cm in aggregate. Specimen is entirely submitted in I1. DB/Sameera-E. Immunostains for H.pylori are examined.F- I. Section shows multiple fragments of colonic mucosa, all of which are relative ly uniformly involved by moderate to severe active inflammation characterized by cryptitis, crypt abscesses and focal surface erosions. Features of chronicity s uch as basal plasmacytosis and occasional crypt branching are seen. No definite paneth cell metaplasia is seen in the left colon biopsies. No granulomas are alexia dent. Viral cytopathic changes are seen histologically in the sigmoid pseudopoly p.The following special studies were performed on this case and the interpretati on is incorporated in the diagnostic report above:The immunohistochemistry test was developed and its performance characteristics determined by [facility], Pathology Laboratory. It has not been cleared or approved by the U .S. Food and Drug Administration. The FDA has determined that such clearance or approval is not necessary. The test is used for clinical purposes. It should not be regarded as investigational or for research. This laboratory is certified un grabiel the Clinical Laboratory Improvement Amendments of 1988 (CLIA-88) as qualifie d to perform high complexity clinical laboratory testing.OVA AND PARASITE [id number] 09:18:00* Test Item Value Reference Range Comments DIRECT SMEAR - O\\T\\P (BEAKER) (test cpjz=517) No ova or parasites seen Test not performed at [facility]. See scanned report. CONCENTRATE SMEAR - O\\T\\P (BEAKER) (test grtp=858) No ova or parasites seen No ova or parasites seen TRICHROME SMEAR - O\\T\\P (BEAKER) (test sssq=192) No ova or parasites seen No ova or parasites seen POCT-GLUCOSE [id number] 16:06:00* Test Item Value Reference Range Comments POC-GLUCOSE METER (BEAKER) (test loij=0393) 133 mg/dL 70-110 TESTED AT [address] [address] POCT-GLUCOSE [id number] 11:32:00* Test Item Value Reference Range Comments POC-GLUCOSE METER (BEAKER) (test psrx=3893) 135 mg/dL 70-110 TESTED AT [address] [address] POCT-GLUCOSE [id number] 07:55:00* Test Item Value Reference Range Comments POC-GLUCOSE METER (BEAKER) (test ctgh=0745) 96 mg/dL 70-110 TESTED AT [address] [address] POCT-GLUCOSE [id number] 21:09:00* Test Item Value Reference Range Comments POC-GLUCOSE METER (BEAKER) (test cimd=0213) 220 mg/dL 70-110 TESTED AT [address] [address] POCT-GLUCOSE [id number] 18:16:00* Test Item Value Reference Range Comments POC-GLUCOSE METER (BEAKER) (test viwf=2665) 110 mg/dL 70-110 TESTED AT [address] [address] POCT-GLUCOSE [id number] 11:32:00* Test Item Value Reference Range Comments POC-GLUCOSE METER (BEAKER) (test dtqu=6881) 83 mg/dL 70-110 TESTED AT [address] [address] STOOL CULTURE + SHIGA [id number] 11:17:00* Test Item Value Reference Range Comments CULTURE (BEAKER) (test gowm=3661) No Salmonella, Shigella or Campylobacter isolated POCT-GLUCOSE [id number] 07:26:00* Test Item Value Reference Range Comments POC-GLUCOSE METER (BEAKER) (test kvdi=1037) 107 mg/dL 70-110 TESTED AT [address] [address] [id number] 05:43:00* Test Item Value Reference Range Comments PHOSPHORUS (BEAKER) (test vjaz=374) 2.3 mg/dL 2.3-4.7 [id number] 05:43:00* Test Item Value Reference Range Comments MAGNESIUM (BEAKER) (test bfxf=546) 2.2 mg/dL 1.6-2.6 BASIC METABOLIC [id number] 05:43:00* Test Item Value Reference Range Comments SODIUM (BEAKER) (test wlyy=660) 140 meq/L 136-145 POTASSIUM (BEAKER) (test ydyh=853) 3.5 meq/L 3.5-5.1 CHLORIDE (BEAKER) (test upro=969) 110 meq/L 98-107 CO2 (BEAKER) (test vsqh=821) 22 meq/L 22-29 BLOOD UREA NITROGEN (BEAKER) (test kivr=095) 5 mg/dL 7-21 CREATININE (BEAKER) (test pwcs=759) 0.61 mg/dL 0.57-1.25 GLUCOSE RANDOM (BEAKER) (test eahy=971) 95 mg/dL 70-105 CALCIUM (BEAKER) (test clrc=686) 8.4 mg/dL 8.4-10.2 EGFR (BEAKER) (test pplp=6783) 97 mL/min/1.73 sq m ESTIMATED GFR IS NOT ACCURATE CREATININE CLEARANCE IN PREDICTING GLOMERULAR FILTRATION RATE. ESTIMATED GFR IS NOT APPLICABLE FOR DIALYSIS PATIENTS. CALCIUM, [id number] 05:35:00* Test Item Value Reference Range Comments CALCIUM IONIZED (BEAKER) (test rque=998) 0.99 mmol/L 1.12-1.27 PH, BLOOD (BEAKER) (test uosd=3306) 7.45 CBC W/PLT COUNT & AUTO [id number] 05:14:00* Test Item Value Reference Range Comments WHITE BLOOD CELL COUNT (BEAKER) (test vdlc=285) 6.6 K/ L 3.5-10.5 RED BLOOD CELL COUNT (BEAKER) (test xzzr=965) 3.78 M/ L 3.93-5.22 HEMOGLOBIN (BEAKER) (test ldhu=675) 10.4 GM/DL 11.2-15.7 HEMATOCRIT (BEAKER) (test xqdb=978) 35.4 % 34.1-44.9 MEAN CORPUSCULAR VOLUME (BEAKER) (test gjgf=754) 93.7 fL 79.4-94.8 MEAN CORPUSCULAR HEMOGLOBIN (BEAKER) (test akjh=984) 27.5 pg 25.6-32.2 MEAN CORPUSCULAR HEMOGLOBIN CONC (BEAKER) (test sdqs=141) 29.4 GM/DL 32.2-35.5 RED CELL DISTRIBUTION WIDTH (BEAKER) (test ajmf=223) 14.2 % 11.7-14.4 PLATELET COUNT (BEAKER) (test anei=963) 398 K/CU MM 150-450 MEAN PLATELET VOLUME (BEAKER) (test jujc=063) 8.9 fL 9.4-12.3 NUCLEATED RED BLOOD CELLS (BEAKER) (test ftrs=799) 0 /100 WBC 0-0 NEUTROPHILS RELATIVE PERCENT (BEAKER) (test qtle=044) 61 % LYMPHOCYTES RELATIVE PERCENT (BEAKER) (test jmgp=489) 25 % MONOCYTES RELATIVE PERCENT (BEAKER) (test ypmk=942) 8 % EOSINOPHILS RELATIVE PERCENT (BEAKER) (test bixp=971) 4 % BASOPHILS RELATIVE PERCENT (BEAKER) (test jdno=226) 1 % NEUTROPHILS ABSOLUTE COUNT (BEAKER) (test ltyu=370) 4.06 K/ L 1.56-6.13 LYMPHOCYTES ABSOLUTE COUNT (BEAKER) (test wmwr=795) 1.68 K/ L 1.18-3.74 MONOCYTES ABSOLUTE COUNT (BEAKER) (test nghi=009) 0.53 K/ L 0.24-0.36 EOSINOPHILS ABSOLUTE COUNT (BEAKER) (test dzlf=018) 0.26 K/ L 0.04-0.36 BASOPHILS ABSOLUTE COUNT (BEAKER) (test gvei=906) 0.07 K/ L 0.01-0.08 IMMATURE GRANULOCYTES-RELATIVE PERCENT (BEAKER) (test pwze=4243) 1 % 0-1 POCT-GLUCOSE [id number] 20:44:00* Test Item Value Reference Range Comments POC-GLUCOSE METER (BEAKER) (test nuus=8536) 236 mg/dL 70-[address] [facility] [address] [facility] [address] GI PATHOGEN PROFILE BY [id number] 18:53:00* Test Item Value Reference Range Comments CAMPYLOBACTER (PCR) (test zjuu=2473850) Not detected Not detected, Inconclusive CLOSTRIDIUM DIFFICILE (PCR) (test xtwr=8994609) Not detected, Inconclusive See C. Diff GDH + Toxin Results PLESIOMONAS SHIGELLOIDES (PCR) (test fgft=3137799) Not detected Not detected, Inconclusive SALMONELLA (PCR) (test rooj=4103311) Not detected Not detected, Inconclusive YERSINIA ENTEROCOLITICA (PCR) (test xpxg=9712723) Not detected Not detected, Inconclusive VIBRIO CHOLERAE (PCR) (test hnbf=3155644) Not detected Not detected, Inconclusive ENTEROAGGREGATIVE E. COLI (EAEC) BY PCR (test mjql=4372814) Not detected Not detected, Inconclusive ENTEROPATHOGENIC E. COLI (EPEC) BY PCR (test hekj=8482553) Not detected Not detected, Inconclusive ENTEROTOXIGENIC E. COLI (ETEC) LT/ST BY PCR (test zzyj=4323972) Not detected Not detected, Inconclusive SHIGA-LIKE TOXIN-PRODUCING E. COLI (STEC) STX1/STX2 (test jyyo=3503243) Not detected Not detected, Inconclusive E. COLI O157 (PCR) (test iweu=7988106) Not detected Not detected, Inconclusive SHIGELLA/ENTEROINVASIVE E. COLI (EIEC) BY PCR (test lhkg=7331863) Not detected Not detected, Inconclusive CRYPTOSPORIDIUM (PCR) (test rdhs=8750426) Not detected Not detected, Inconclusive CYCLOSPORA CAYETANENSIS (PCR) (test lpzl=1622450) Not detected Not detected, Inconclusive ENTAMOEBA HISTOLYTICA (PCR) (test ntyv=6937777) Not detected Not detected, Inconclusive GIARDIA LAMBLIA (PCR) (test kudq=1448672) Not detected Not detected, Inconclusive ADENOVIRUS F 40/41 (PCR) (test eglo=4301012) Not detected Not detected, Inconclusive ASTROVIRUS (PCR) (test yuax=3907516) Not detected Not detected, Inconclusive NOROVIRUS GI/GII (PCR) (test igta=5951767) Not detected Not detected, Inconclusive ROTAVIRUS A (PCR) (test tyot=1948558) Not detected Not detected, Inconclusive SAPOVIRUS (I, II, IV, V) BY PCR (test xgwg=8110085) Not detected Not detected, Inconclusive NOT DETECTEDPanel is negative for [employer] GI Panel-detectable organisms. Please refer to traditional culture, sensitivity, ova and parasite results as they beco me available.Tested at [facility] using the [employer] ([place] | [place], [place]). This test has been FDA Approved a nd verification was performed prior to clinical use. Reference Range: Not Detect edPOCT-GLUCOSE [id number] 17:29:00* Test Item Value Reference Range Comments POC-GLUCOSE METER (BEAKER) (test gdtv=8490) 113 mg/dL 70-110 TESTED AT [address] [address] C-REACTIVE [id number] 14:55:00* Test Item Value Reference Range Comments C-REACTIVE PROTEIN (BEAKER) (test tqdw=803) 2.03 mg/dL 0.00-0.50 HEMOGLOBIN [id number] 14:51:00* Test Item Value Reference Range Comments HEMOGLOBIN A1C (BEAKER) (test kubb=340) 5.5 % 4.3-6.1 SHIGA TOXIN [id number] 14:44:00* Test Item Value Reference Range Comments SHIGA TOXIN 1 (BEAKER) (test isiw=9914) Not detected Not detected SHIGA TOXIN 2 (BEAKER) (test ryrm=8028) Not detected Not detected OCCULT BLOOD, [id number] 12:44:00* Test Item Value Reference Range Comments FECAL OCCULT BLOOD (BEAKER) (test nvai=337) Positive Negative POCT-GLUCOSE [id number] 12:09:00* Test Item Value Reference Range Comments POC-GLUCOSE METER (BEAKER) (test xspj=5868) 120 mg/dL 70-110 TESTED AT [address] [address] STOOL PATH [id number] 12:09:00* Test Item Value Reference Range Comments PATHOGEN EXAM CHARGED (BEAKER) (test eudi=5059) Done C. DIFFICILE GDH [id number] 08:46:00* Test Item Value Reference Range Comments CDT TOXIN (test udwx=[id number]) Negative Negative CDT GDH ANTIGEN (test hvxa=[id number]) Negative Negative No indication of Clostridium difficile infection and no colonization. Discontinue enteric isolation and therapy. Testing performed by [employer] Rapid Cassette Assay. For GDH, published sensitivity of the assay is 98.7% compared to cytotoxicity testing. For Toxin AB, published sensitivity is 87.8% and specificity 99.4% compared to cytotoxicity testing.Ve rification of kit performance was done by the [facility] prior to cl inical use.FECAL [id number] 08:35:00* Test Item Value Reference Range Comments FECAL LEUKOCYTES (BEAKER) (test dxlg=248) 1+ Fecal leukocytes seen No fecal leukocytes seen TSH/FREE T4 IF [id number] 07:58:00* Test Item Value Reference Range Comments THYROID STIMULATING HORMONE (BEAKER) (test hyao=308) 2.74 uIU/mL 0.35-4.94 [id number] 07:41:00* Test Item Value Reference Range Comments PHOSPHORUS (BEAKER) (test bsjm=136) 2.6 mg/dL 2.3-4.7 [id number] 07:41:00* Test Item Value Reference Range Comments MAGNESIUM (BEAKER) (test zjkx=794) 2.4 mg/dL 1.6-2.6 BASIC METABOLIC [id number] 07:41:00* Test Item Value Reference Range Comments SODIUM (BEAKER) (test hyvs=887) 141 meq/L 136-145 POTASSIUM (BEAKER) (test fyyn=961) 3.8 meq/L 3.5-5.1 CHLORIDE (BEAKER) (test rwpf=689) 110 meq/L 98-107 CO2 (BEAKER) (test mtjg=844) 26 meq/L 22-29 BLOOD UREA NITROGEN (BEAKER) (test bqjj=909) 8 mg/dL 7-21 CREATININE (BEAKER) (test xpgl=501) 0.65 mg/dL 0.57-1.25 GLUCOSE RANDOM (BEAKER) (test sprc=130) 108 mg/dL 70-105 CALCIUM (BEAKER) (test citz=953) 8.4 mg/dL 8.4-10.2 EGFR (BEAKER) (test zbzk=4536) 90 mL/min/1.73 sq m ESTIMATED GFR IS NOT ACCURATE CREATININE CLEARANCE IN PREDICTING GLOMERULAR FILTRATION RATE. ESTIMATED GFR IS NOT APPLICABLE FOR DIALYSIS PATIENTS. LIPID [id number] 07:41:00* Test Item Value Reference Range Comments TRIGLYCERIDES (BEAKER) (test klzh=781) 91 mg/dL CHOLESTEROL (BEAKER) (test nytu=145) 139 mg/dL HDL CHOLESTEROL (BEAKER) (test eqyd=512) 46 mg/dL LDL CHOLESTEROL CALCULATED (BEAKER) (test hspi=722) 75 mg/dL Triglyceride Reference Range: Low Risk <150 Borderline 150-199 High Risk 200-499 Very High Risk >=500Cholesterol Reference Range: Low Risk <200 Borderline 200-239 High Risk >240HDL Cholesterol Reference Range: Low Risk >=60 High Risk <40LDL Cholesterol Reference Range: Optimal <100 Near Optimal 100-129 Borderline 130-159 High 160-189 Very High >=190 POCT- GLUCOSE [id number] 07:37:00* Test Item Value Reference Range Comments POC-GLUCOSE METER (BEAKER) (test wmer=7257) 113 mg/dL 70-110 TESTED AT [address] [address] B-TYPE NATRIURETIC FACTOR (BNP)2018-04-02 07:18:00* Test Item Value Reference Range Comments B-TYPE NATRIURETIC PEPTIDE (BEAKER) (test bjog=756) 155 pg/mL 0-100 CALCIUM, [id number] 07:08:00* Test Item Value Reference Range Comments CALCIUM IONIZED (BEAKER) (test puwj=345) 1.02 mmol/L 1.12-1.27 PH, BLOOD (BEAKER) (test lvle=4287) 7.40 CBC W/PLT COUNT & AUTO [id number] 06:59:00* Test Item Value Reference Range Comments WHITE BLOOD CELL COUNT (BEAKER) (test evig=433) 5.1 K/ L 3.5-10.5 RED BLOOD CELL COUNT (BEAKER) (test hrkn=731) 3.43 M/ L 3.93-5.22 HEMOGLOBIN (BEAKER) (test dgcl=444) 9.6 GM/DL 11.2-15.7 HEMATOCRIT (BEAKER) (test cast=898) 31.4 % 34.1-44.9 MEAN CORPUSCULAR VOLUME (BEAKER) (test xkma=129) 91.5 fL 79.4-94.8 MEAN CORPUSCULAR HEMOGLOBIN (BEAKER) (test cjsn=123) 28.0 pg 25.6-32.2 MEAN CORPUSCULAR HEMOGLOBIN CONC (BEAKER) (test erjg=425) 30.6 GM/DL 32.2-35.5 RED CELL DISTRIBUTION WIDTH (BEAKER) (test nwjs=511) 14.3 % 11.7-14.4 PLATELET COUNT (BEAKER) (test nbmb=277) 396 K/CU MM 150-450 MEAN PLATELET VOLUME (BEAKER) (test cdnk=266) 9.7 fL 9.4-12.3 NUCLEATED RED BLOOD CELLS (BEAKER) (test mrdx=888) 0 /100 WBC 0-0 NEUTROPHILS RELATIVE PERCENT (BEAKER) (test dwql=957) 54 % LYMPHOCYTES RELATIVE PERCENT (BEAKER) (test nxea=424) 32 % MONOCYTES RELATIVE PERCENT (BEAKER) (test maqb=958) 8 % EOSINOPHILS RELATIVE PERCENT (BEAKER) (test dxyq=294) 4 % BASOPHILS RELATIVE PERCENT (BEAKER) (test fnbm=514) 1 % NEUTROPHILS ABSOLUTE COUNT (BEAKER) (test pveg=530) 2.80 K/ L 1.56-6.13 LYMPHOCYTES ABSOLUTE COUNT (BEAKER) (test stht=734) 1.62 K/ L 1.18-3.74 MONOCYTES ABSOLUTE COUNT (BEAKER) (test mjom=328) 0.42 K/ L 0.24-0.36 EOSINOPHILS ABSOLUTE COUNT (BEAKER) (test ipjc=101) 0.21 K/ L 0.04-0.36 BASOPHILS ABSOLUTE COUNT (BEAKER) (test imwc=639) 0.07 K/ L 0.01-0.08 IMMATURE GRANULOCYTES-RELATIVE PERCENT (BEAKER) (test mrri=6853) 0 % 0-1 COMPREHENSIVE METABOLIC [id number] 22:45:00* Test Item Value Reference Range Comments TOTAL PROTEIN (BEAKER) (test uizq=413) 7.1 gm/dL 6.0-8.3 ALBUMIN (BEAKER) (test wjpx=6012) 3.4 g/dL 3.5-5.0 ALKALINE PHOSPHATASE (BEAKER) (test ghsx=933) 66 U/L 40-150 BILIRUBIN TOTAL (BEAKER) (test lmfg=380) 0.1 mg/dL 0.2-1.2 SODIUM (BEAKER) (test xigj=157) 138 meq/L 136-145 POTASSIUM (BEAKER) (test vsln=887) 3.6 meq/L 3.5-5.1 CHLORIDE (BEAKER) (test qcat=841) 107 meq/L 98-107 CO2 (BEAKER) (test fqzn=970) 23 meq/L 22-29 BLOOD UREA NITROGEN (BEAKER) (test tcde=663) 10 mg/dL 7-21 CREATININE (BEAKER) (test vgtk=051) 0.66 mg/dL 0.57-1.25 GLUCOSE RANDOM (BEAKER) (test wgxh=322) 103 mg/dL 70-105 CALCIUM (BEAKER) (test dacv=149) 8.2 mg/dL 8.4-10.2 AST (SGOT) (BEAKER) (test hcng=087) 9 U/L 5-34 ALT (SGPT) (BEAKER) (test efub=041) 6 U/L 6-55 EGFR (BEAKER) (test xedv=7438) 88 mL/min/1.73 sq m ESTIMATED GFR IS NOT ACCURATE CREATININE CLEARANCE IN PREDICTING GLOMERULAR FILTRATION RATE. ESTIMATED GFR IS NOT APPLICABLE FOR DIALYSIS PATIENTS. C-REACTIVE [id number] 22:45:00* Test Item Value Reference Range Comments C-REACTIVE PROTEIN (BEAKER) (test ilii=814) 2.31 mg/dL 0.00-0.50 CBC W/PLT COUNT & AUTO [id number] 22:22:00* Test Item Value Reference Range Comments WHITE BLOOD CELL COUNT (BEAKER) (test cvbw=213) 8.3 K/ L 3.5-10.5 RED BLOOD CELL COUNT (BEAKER) (test psuk=894) 3.69 M/ L 3.93-5.22 HEMOGLOBIN (BEAKER) (test qofb=676) 10.5 GM/DL 11.2-15.7 HEMATOCRIT (BEAKER) (test xipl=941) 33.8 % 34.1-44.9 MEAN CORPUSCULAR VOLUME (BEAKER) (test dgxo=449) 91.6 fL 79.4-94.8 MEAN CORPUSCULAR HEMOGLOBIN (BEAKER) (test ctas=478) 28.5 pg 25.6-32.2 MEAN CORPUSCULAR HEMOGLOBIN CONC (BEAKER) (test nfsc=579) 31.1 GM/DL 32.2-35.5 RED CELL DISTRIBUTION WIDTH (BEAKER) (test kbaz=966) 14.2 % 11.7-14.4 PLATELET COUNT (BEAKER) (test mgcx=675) 408 K/CU MM 150-450 MEAN PLATELET VOLUME (BEAKER) (test mpgj=530) 8.7 fL 9.4-12.3 NUCLEATED RED BLOOD CELLS (BEAKER) (test jcxn=209) 0 /100 WBC 0-0 NEUTROPHILS RELATIVE PERCENT (BEAKER) (test sudl=495) 64 % LYMPHOCYTES RELATIVE PERCENT (BEAKER) (test ugtc=702) 24 % MONOCYTES RELATIVE PERCENT (BEAKER) (test dowl=781) 8 % EOSINOPHILS RELATIVE PERCENT (BEAKER) (test qwym=319) 3 % BASOPHILS RELATIVE PERCENT (BEAKER) (test cqnu=329) 1 % NEUTROPHILS ABSOLUTE COUNT (BEAKER) (test blvi=150) 5.29 K/ L 1.56-6.13 LYMPHOCYTES ABSOLUTE COUNT (BEAKER) (test gman=340) 2.00 K/ L 1.18-3.74 MONOCYTES ABSOLUTE COUNT (BEAKER) (test wjir=412) 0.62 K/ L 0.24-0.36 EOSINOPHILS ABSOLUTE COUNT (BEAKER) (test sshq=920) 0.23 K/ L 0.04-0.36 BASOPHILS ABSOLUTE COUNT (BEAKER) (test uwxh=355) 0.08 K/ L 0.01-0.08 IMMATURE GRANULOCYTES-RELATIVE PERCENT (BEAKER) (test chzv=5845) 0 % 0-1 POCT-GLUCOSE [id number] 22:13:00* Test Item Value Reference Range Comments POC-GLUCOSE METER (BEAKER) (test bjff=8801) 105 mg/dL 70-[address] [facility] [address] [facility] [address] AFB CULTURE + [id number] 11:07:00* Test Item Value Reference Range Comments CULTURE (BEAKER) (test cixq=5241) No acid-fast bacilli isolated in 42 days AFB SMEAR (BEAKER) (test anyg=234) No acid fast bacilli seen CF RESPIRATORY [id number] 14:18:00* Test Item Value Reference Range Comments CULTURE (BEAKER) (test nqem=4351) 4 out of 4 media Aspergillus species, not fumigatus 4+ Normal respiratory danny presentFUNGUS CULTURE + [id number] 14:13:00* Test Item Value Reference Range Comments CULTURE (BEAKER) (test uvfh=2665) 1 out of 3 media Syncephalastrum species FUNGUS SMEAR (BEAKER) (test ebhb=2774) No fungi seen SPIN/CONCENTRATION [id number] 12:39:00* Test Item Value Reference Range Comments CONCENTRATION CHARGED ([employer]) (test qhbd=3731) Done POCT-GLUCOSE [id number] 11:12:00* Test Item Value Reference Range Comments POC-GLUCOSE METER ([facility]) (test gqnc=8608) 124 mg/dL 70-[address] [facility] [address] [facility] [id number]
[2018-09-17] MEDS ORDERED: SODIUM CHLORIDE 0.9% 500ML 500 ML IV STA (14:53)
[2018-09-17] MEDS ORDERED: ONDANSETRON HCL INJ 2 MG/ML VIAL IV STA (14:53)
[2018-09-17] MEDS ORDERED: TRAMADOL HCL 50 MG TAB PO ONE (15:00)
[2018-09-17] MEDS ORDERED: SODIUM CHLORIDE 0.9% 1000ML 1,000 ML IV STA (15:04)
[2018-09-17] MEDS ORDERED: FAMOTIDINE 20 MG/2 ML VIAL IV ONE (15:15)
[2018-09-17 15:54] LABS: BASOPHILS % 0.6 % (0.0-1.0); EOSINOPHILS # (AUTO) 0.1 (0.0-0.4); EOSINOPHILS % 2.3 % (0.0-6.0); HEMATOCRIT 30.8 % (34.2-44.1); HEMOGLOBIN 9.2 g/dL (12.0-16.0); LYMPHOCYTES # (AUTO) 1.6 (1.0-3.2); LYMPHOCYTES % 29.9 % (18.0-39.1); MEAN CORPUSCULAR HEMOGLOBIN 23.7 pg (28-32); MEAN CORPUSCULAR HGB CONC 29.9 g/dL (31-35); MEAN CORPUSCULAR VOLUME 79.2 fL (81-99); MONOCYTES # (AUTO) 0.4 (0.2-0.8); MONOCYTES % 8.4 % (4.4-11.3); NEUTROPHILS # (AUTO) 3.1 (2.1-6.9); NEUTROPHILS % 58.6 % (38.7-80.0); PLATELET COUNT 402 x10e3/uL (140-360); RED BLOOD COUNT 3.89 x10e6/uL (3.6-5.1); RED CELL DISTRIBUTION WIDTH 15.9 % (11.7-14.4)
--- NOTE | 2018-09-17 16:06 | Diagnostic Imaging Report ---
Examination: Single AP view of the chest. COMPARISON: None. INDICATION: Abdominal pain for 4 days IMPRESSION: 1. Lines and Tubes: Left upper chest dual lead cardiac device, with distal tips projecting in the right atrium and right ventricle. 2. Lungs are well inflated. Minimal prominence of the interstitium bilaterally, which may reflect chronic interstitial changes. No consolidation or pleural effusion. 3. Mild prominence of the cardiac silhouette, which may be partly due to AP projection. Pulmonary vasculature is normal. 4. No acute bony abnormalities. Mild osteopenia. Signed by: Dr. Demarcus Cooper M.D. on 09/17/2018 4:03 PM
[2018-09-17 16:18] LABS: ALANINE AMINOTRANSFERASE 7 IU/L (0-55); ALBUMIN 3.4 g/dL (3.5-5.0); ALBUMIN/GLOBULIN RATIO 0.7 (0.8-2.0); ALKALINE PHOSPHATASE 82 IU/L (40-150); ANION GAP 15.6 mmol/L (8-16); BLOOD UREA NITROGEN 9 mg/dL (7-26); BUN/CREATININE RATIO 12 (6-25); CALCIUM 9.4 mg/dL (8.4-10.2); CARBON DIOXIDE 23 mmol/L (22-29); CHLORIDE 99 mmol/L (98-107); CREATINE KINASE 45 IU/L (29-168); CREATININE, SERUM 0.73 mg/dL (0.57-1.11); EST GLOMERULAR FILTRATION RATE > 60 ML/MIN (60-); GLUCOSE 68 mg/dL (74-118); POTASSIUM 3.6 mmol/L (3.5-5.1); SODIUM 134 mmol/L (136-145)
[2018-09-17 16:38] LABS: AMYLASE 108 U/L (25-125); LIPASE 41 U/L (8-78)
--- NOTE | 2018-09-17 18:24 | Diagnostic Imaging Report ---
EXAMINATION: CT of the abdomen and pelvis with contrast. TECHNIQUE: Spiral CT images of the abdomen and pelvis were performed from the lung bases to the lesser trochanters after the intravenous administration of 100 cc of Isovue 370 and the oral administration of water. Coronal and sagittal reformatted images were obtained. COMPARISON: None. CLINICAL HISTORY:Abdominal pain, bloody diarrhea, and vomiting for one week, no fever, history of Crohn's DISCUSSION: ABDOMEN/PELVIS: LOWER THORAX:Lung bases are grossly clear. Distal portion of cardiac wires noted in the right atrium and right ventricle. HEPATOBILIARY: No focal hepatic lesions. No intra or extrahepatic biliary ductal dilation. GALLBLADDER: Cholecystectomy clips. SPLEEN: No splenomegaly. PANCREAS: No focal masses or ductal dilatation. ADRENALS: No adrenal nodules. KIDNEYS/URETERS: No hydronephrosis, stones, or solid mass lesions. PELVIC ORGANS/BLADDER: Bladder is unremarkable, without focal lesions or wall thickening. No adnexal masses. PERITONEUM/RETROPERITONEUM: No free air or fluid. LYMPH NODES: No intra-abdominal, retroperitoneal, pelvic or inguinal lymphadenopathy. VESSELS: The celiac trunk,superior and inferior mesenteric and bilateral renal arteries are patent The portal, superior mesenteric and splenic veins are patent. GI TRACT: No bowel dilation or evidence of obstruction. There is moderate circumferential wall thickening involving the distal transverse colon extending through the descending and proximal sigmoid colon (for example coronal image 7 and sagittal images 67-87), with prominence of the vasa recti and mild surrounding stranding. Mild wall thickening is also noted in the cecum. No foci of extraluminal air or adjacent well-defined fluid collections. Appendix is well identified and normal in caliber. Small bowel is grossly unremarkable. BONES AND SOFT TISSUE: No aggressive lytic lesions. Degenerative changes in the lumbosacral spine with rightward curvature. Soft tissues are grossly unremarkable. IMPRESSION: 1. Findings likely represent active inflammatory bowel disease/Crohn's flareup, involving the distal transverse colon, descending colon and proximal sigmoid colon, and the cecum, to lesser degree. An infectious colitis is less likely given the discontinuous nature of the findings. No evidence of perforation or abscess formation. Signed by: Dr. Demarcus Cooper M.D. on 09/17/2018 6:21 PM
[2018-09-17] MEDS: AZTREONAM 2GM/NS 100ML 2 GM in AZTREONAM 2GM/NS 100ML 100 ML IV SCH (19:00)
[2018-09-17] MEDS ORDERED: HYDROCODONE/APAP 7.5MG-325MG 1 EA TAB PO PRN (19:00)
[2018-09-17] MEDS ORDERED: ONDANSETRON HCL INJ 2 MG/ML VIAL IV PRN (19:00)
[2018-09-17] MEDS ORDERED: HYDROMORPHONE 1MG/1ML INJ IV PRN (19:00)
[2018-09-17] MEDS ORDERED: DIPHENHYDRAMINE HCL INJ 50 MG/ML VIAL IV PRN (19:00)
[2018-09-17] MEDS ORDERED: ZOLPIDEM TARTRATE 5 MG TAB PO PRN (19:00)
[2018-09-17] MEDS ORDERED: LEVOFLOXACIN 500MG/D5W 100ML 100 ML IV SCH (19:00)
[2018-09-17] MEDS ORDERED: PROMETHAZINE 12.5MG/ NACL 0.9% 12.5 MG/50 ML BAG IV PRN (19:00)
[2018-09-17] MEDS ORDERED: ENALAPRILAT IV INJ 1.25 MG/ML VIAL IV PRN (19:00)
--- OUTSIDE RECORDS SUMMARY | 2018-09-17 19:08 | XMS REPORT | Clinical Summary ---
Author Author [facility] Address Unknown Phone Unavailable Care Team Providers Care Environmental Services Worker Name Role Phone Anders Brady Betty PCP Sharpless Unavailable Allergies Comments Active Allergy Reactions Severity Noted Date Naproxen Sodium 12/15/2015 Acetaminophen-Calcium 12/15/2015 Carbonat Diclofenac-Misoprostol 12/15/2015 Aspirin 12/15/2015 Ciprofloxacin 10/31/2016 Clarithromycin 10/31/2016 Coconut 04/01/2018 Diphenhydramine 10/31/2016 Erythromycin 12/15/2015 Flurbiprofen 04/01/2018 Hydrocodone-Ibuprofen 12/15/2015 Ibuprofen 04/01/2018 Lisinopril Itching, Low 08/11/2018 Anxiety Acetaminophen-Pamabrom 10/31/2016 Morphine Sulfate 10/31/2016 Nsaids (Non-Steroidal 10/31/2016 Anti-Inflammatory Drug) Onion 04/01/2018 Winona 04/01/2018 Larue (Prunus Persica) 04/01/2018 Pear 04/01/2018 Penicillins 10/31/2016 [...] 08/27/2018 Discontinued iron polysacch Take 1 0 [id number] 150-25-1 capsule by mg-mcg-mg Cap mouth 2 [...] Dru Hanson MD 04/03/2018 Anesthesia Gastroenterology Event [facility], Trever Horvath MD UPPER ENDOSCOPY,BIOPSY 04/03/2018 Surgery Gastroenterology Nayeli Bermudez MD Parhizgar, Alireza, MD Crohn's disease with complication, unspecified gastrointestinal tract location (HCC); Hypertension, unspecified type; Intractable diarrhea; Episode of recurrent major depressive disorder, unspecified depression episode severity (HCC); Type 2 diabetes mellitus without complication, without long-term current use of insulin (HCC); Aspergillus ([facility]); MAIC (mycobacterium avium-intracellulare complex) ([facility]) 04/01/2018 Hospital Oncology - Encounter 04/04/2018 Nayeli [...] ms QTC Calculatio n(Bazett) 467 ms P Royal 23 degrees R Royal 44 degrees T Royal 108 degrees Normal sinus rhythm Nonspecifi c [...] (H)Comment: TESTED AT 70 - 110 mg/dL [facility] [address] [facility] [address] Specimen Blood Performing Organization Address City/State/Zipcode Phone Number [address] [address] MEDICAL CENTER * Manual Differential (08/15/2018 8:25 AM CDT) % Neutros 43 % [facility] % Lymphs 21 % [facility] % Monos 3 % [facility] % Eos 4 % [facility] % Baso 1 % [facility] % Bands 29 (H) 0 - 10 % [facility] # Neutros 3.14 1.56 - 6.13 K/ul [facility] # Lymphs 1.53 1.18 - 3.74 K/ul [facility] # Monos 0.22 (L) 0.24 - 0.36 K/uL [facility] # Eos 0.29 0.04 - 0.36 K/uL [facility] # Baso 0.07 0.01 - 0.08 K/uL [facility] # Bands 2.12 (H) 0.00 - 0.80 K/uL [facility] Total Counted 100 [facility] WBC Morphology Normal [facility] Giant Platelet Present [facility] Large Platelet Present [facility] Hypochromia 2+ moderate [facility] Anisocytosis 2+ moderate [facility] Microcytes 1+ few [facility] Macrocytes 2+ moderate [facility] Poikilocytes 1+ few [facility] Ovalocytes 1+ few [facility] Tear Drop Cells 1+ few [facility] Acanthocytes 1+ few [facility] Artifact Present [facility] Platelet Conc Adequate [facility] Specimen Blood - Arm, Left Narrative Performed At Received comment: [facility] User comments: [facility] Slide comments: Performing Organization Address City/State/Zipcode Phone Number [facility] [address] [facility] [place] [address] MEDICAL CENTER * CBC with platelet count + automated diff (08/15/2018 8:25 AM CDT) Only the most recent of 8 results within the time period is included. WBC 7.3 3.5 - 10.5 K/L [facility] RBC 3.44 (L) 3.93 - 5.22 M/L [facility] Hemoglobin 8.6 (L) 11.2 - 15.7 GM/DL [facility] Hematocrit 28.5 (L) 34.1 - 44.9 % [facility] MCV 82.8 79.4 - 94.8 fL [facility] MCH 25.0 (L) 25.6 - 32.2 pg [facility] MCHC 30.2 (L) 32.2 - 35.5 GM/DL [facility] RDW 16.3 (H) 11.7 - 14.4 % [facility] Platelets 451 (H) 150 - 450 K/CU MM [facility] MPV 9.0 (L) 9.4 - 12.3 fL [facility] nRBC 0 0 - 0 /100 WBC [facility] Specimen Blood - Arm, Left Performing Organization Address City/State/Zipcode Phone Number [facility] [address] [place] [address] MEDICAL CENTER * Aspergillus antibodies [...] At Performing Lab [facility] [employer] [facility] [address] [place] [phone] Jay Jay Phelps MD Performing Organization Address City/[facility] Phone Number [facility], [address] [place], [place] [phone] * Aspergillus galactomannan antigen (08/15/2018 5:46 AM CDT) Aspergillus Index Value <0.50 [facility] Aspergillus Antigen NOT DETECTED [facility] Comment: INCORPORATED REFERENCE RANGE: <0.50, NOT DETECTED A negative result does not exclude invasive aspergillosis. Follow-up testing may be indicated for high-risk patients. Specimen Blood - Arm, Left Narrative Performed At Performing Lab [facility] *[employer] [facility] [address] [place] [phone] Jay Jay Phelps MD Performing Organization Address [facility] Phone Number [facility], [address] [place], [place] [phone] * Magnesium (08/15/2018 5:46 AM CDT) Only the most recent of 7 results within the time period is included. Magnesium 2.0 1.6 - 2.6 mg/dL [facility] Specimen Blood - Arm, Left Performing Organization Address [facility] Phone Number [place] [phone] * Immunoglobulin E (IgE) (08/15/2018 5:46 AM CDT) Immunoglobulin E 30 114 OR LESS kU/L [facility] Specimen Blood - Arm, Left Narrative Performed At Performing Lab [facility] [employer] [address] [address] Aman Cody MD, PhD, GIOVANNI Performing Organization Address City/[facility] Phone Number [facility], [address] [place], [place] [phone] * Basic Metabolic Panel (08/15/2018 5:46 AM CDT) Only the most recent of 8 results within the time period is included. Sodium 137 136 - 145 meq/L [facility] Potassium 4.1 3.5 - 5.1 meq/L [facility] Chloride 110 (H) 98 - 107 meq/L [facility] CO2 20 (L) 22 - 29 meq/L [facility] BUN 3 (L) 7 - 21 mg/dL [facility] Creatinine 0.66 0.57 - 1.25 mg/dL [facility] Glucose 114 (H) 70 - 105 mg/dL [facility] Calcium 8.3 (L) 8.4 - 10.2 mg/dL [facility] EGFR 88Comment: ESTIMATED GFR IS mL/min/1.[address] [facility] NOT ACCURATE CREATININE [facility] CLEARANCE IN PREDICTING GLOMERULAR FILTRATION RATE. ESTIMATED GFR IS NOT APPLICABLE FOR DIALYSIS PATIENTS. Specimen Blood - Arm, Left Performing Organization Address City/State/Zipcode Phone Number [facility] [address] [place] [address] [facility] * CT chest with high resolution/ild (08/14/2018 8:27 PM CDT) Narrative Performed At FINAL REPORT [facility] CLINICAL INDICATION: Sputum cultures positive for Aspergillus [...] MD Report Verified Date/Time:08/14/2018 20:51:25 Reading Location: [address] Reading Room Procedure Note Interface, External [...] Report Verified Date/Time: 08/14/2018 20:51:25 Reading Location: [address] Reading Room Performing Organization Address City/State/Zipcode Phone Number [facility] * GI Pathogen Profile by PCR -ID Only (08/14/2018 11:41 AM CDT) Only the most recent of 2 results within the time period is included. CAMPYLOBACTER (PCR) Not detected Not detected [facility] PLESIOMONAS SHIGELLOIDES Not detected Not detected [facility] (PCR) [facility] SALMONELLA (PCR) Not detected Not detected [facility] YERSINIA ENTEROCOLITICA Not detected Not detected [facility] (PCR) [facility] VIBRIO CHOLERAE (PCR) Not detected Not detected [facility] ENTEROAGGREGATIVE E. COLI Not detected Not detected [facility] (EAEC) BY PCR [facility] ENTEROPATHOGENIC E. COLI Not detected Not detected [facility] (EPEC) BY PCR [facility] ENTEROTOXIGENIC E. COLI Not detected Not detected [facility] (ETEC) LT/ST BY PCR [facility] SHIGA-LIKE Not detected Not detected [facility] TOXIN-PRODUCING E. COLI [facility] (STEC) STX1/STX2 E. COLI O157 (PCR) Not detected [facility] SHIGELLA/ENTEROINVASIVE Not detected Not detected [facility] E. COLI (EIEC) BY PCR [facility] CRYPTOSPORIDIUM (PCR) Not detected Not detected [facility] CYCLOSPORA CAYETANENSIS Not detected Not detected [facility] (PCR) [facility] ENTAMOEBA HISTOLYTICA Not detected Not detected [facility] (PCR) [facility] GIARDIA LAMBLIA (PCR) Not detected Not detected [facility] ADENOVIRUS F 40/41 (PCR) Not detected Not detected [facility] ASTROVIRUS (PCR) Not detected Not detected [facility] NOROVIRUS GI/GII (PCR) Not detected Not detected [facility] ROTAVIRUS A (PCR) Not detected Not detected [facility] SAPOVIRUS (I, II, IV, V) Not detected Not detected [facility] BY PCR [facility] VIBRIO (PARAHAEMOLYTICUS, Not detected Not detected [facility] VULNIFICUS) [facility] Specimen Stool - Stool Narrative Performed At Other viruses, parasites and bacteria not targeted by this PCR panel cannot be [facility] excluded; therefore clinical correlation and follow up of serology, culture [facility] results, and other molecular studies is required. The results are not intended to be used as the sole means for clinical diagnosis or patient management decisions. This sample was tested at the [facility] Molecular Diagnostics Laboratory using the Splice Gastrointestinal Panel. It is FDA cleared and has been verified and approved by the [facility] Molecular Diagnostics [facility] for clinical use. This laboratory is CLIA-certified and [employer] (CAP)-accredited to perform high complexity testing. Performing Organization Address City/[facility] Phone Number [address] [address] [facility] * SPIN/CONCENTRATION CHARGE (08/13/2018 10:13 AM CDT) Concentration charged Done [facility] Specimen Sputum - Expectorated Performing Organization Address City/[facility] Phone Number [address] [address] [facility] * Sputum Culture + Gram Stain (08/13/2018 10:13 AM CDT) Result 4+ Normal respiratory danny [facility] present [facility] Gram Stain Result 3+ WBCs [facility] Gram Stain Result 5-10 epithelial cells [facility] Gram Stain Result No organisms seen [facility] Specimen Sputum - Expectorated Narrative Performed At [facility] Performing Organization Address [facility] Phone Number [address] [address] [facility] * Fungus culture + smear (08/13/2018 10:13 AM CDT) Result No fungus isolated in 28 days [facility] Fungus Smear No fungi seen [facility] Specimen Sputum - Expectorated Performing Organization Address City/[facility] [place] [address] [phone] [place] [address] * Phosphorus (08/13/2018 4:54 AM CDT) Only the most recent of 5 results within the time period is included. Phosphorus 3.0Comment: Specimen slightly 2.3 - 4.7 mg/dL [facility] Specimen Blood Performing Organization Address [facility] [place] [address] [phone] [place] [address] * Hepatic function panel (08/13/2018 4:54 AM CDT) Only the most recent of 4 results within the time period is included. Protein, Total 6.2Comment: Specimen slightly 6.0 - 8.3 gm/dL [facility] Albumin 2.8 (L)Comment: Specimen 3.5 - 5.0 g/dL [facility] Total Bilirubin 0.3Comment: Specimen slightly 0.2 - 1.2 mg/dL [facility] Bilirubin, Direct 0.1Comment: Specimen slightly 0.1 - 0.5 mg/dL [facility] Alkaline Phosphatase 68 40 - 150 U/L [facility] AST 12Comment: Specimen slightly 5 - 34 U/L [facility] ALT <6 (L)Comment: Specimen 6 - 55 U/L [facility] slightly [facility] Specimen Blood Performing Organization Address City/[facility] Phone Number [address] [address] [facility] * CMV PCR, quantitative (08/11/2018 1:31 PM CDT) CMV DNA Viral Load Negative or below the linear [facility] range of the assay (<375 [facility] copies/mL) Specimen Blood - Arm, Left Narrative Performed At Cytomegalovirus (CMV) infection can cause significant disease in [facility] immunosuppressed patients. However, it is common for CMV to manifest as a [facility] limited infection which is of no [...] and its performance characteristics determined by the [facility] Pathology Department, Section of Molecular Pathology. It has not been cleared or approved by the U.S. Food and Drug Administration (FDA), since FDA approval is not required for clinical use of the test. Validation was done as required by The Clinical Laboratory Improvement Amendments of 1988. Performing Organization Address City/State/Zipcode Phone Number [address] [address] [facility] * TSH/Free T4 If Indicated (08/11/2018 9:29 AM CDT) Only the most recent of 2 results within the time period is included. TSH 3.52 0.35 - 4.94 uIU/mL [facility] Specimen Blood - Arm, Left Performing Organization Address City/State/Zipcode Phone Number [facility] [address] [place] [address] [facility] * C-Reactive Protein (08/11/2018 9:29 AM CDT) Only the most recent of 3 results within the time period is included. CRP 3.20 (H) 0.00 - 0.50 mg/dL [facility] Specimen Blood - Arm, Left Performing Organization Address City/[facility] Phone Number [facility] [address] [place] [address] [facility] * Lipid panel (08/11/2018 9:29 AM CDT) Only the most recent of 2 results within the time period is included. Triglycerides 71 mg/dL [facility] Cholesterol 131 mg/dL [facility] HDL 55 mg/dL [facility] LDL Calculated 62 mg/dL [facility] Specimen Blood - Arm, Left Narrative Performed At Triglyceride Reference Range: [facility] Low Risk <150 [facility] [id number] High Risk 200-499 Very High Risk>=500 Cholesterol Reference Range: Low Risk <200 [id number] High Risk>240 HDL Cholesterol Reference Range: Low Risk >=60 High Risk <40 LDL Cholesterol Reference Range: Optimal<100 Near [id number] Vuohlcwtud358-421 Glaq957-314 Very High >=190 Performing Organization Address City/[facility] Phone Number [address] [address] [facility] * Clostridium difficile [facility] Toxin (08/11/2018 9:08 AM CDT) Only the most recent of 2 results within the time period is included. C. Difficle Toxin Negative Negative [facility] C. Difficile [facility] Antigen NegativeComment: No indication Negative [facility] of Clostridium difficile [facility] infection and no colonization. Discontinue enteric isolation and therapy. Specimen Stool - Stool Narrative Performed At Testing performed by [employer] Rapid Cassette Assay.For G[facility], published [facility] sensitivity of the assay is 98.7% compared to cytotoxicity testing.For Toxin [facility] AB, published sensitivity is 87.8% and specificity 99.4% compared to cytotoxicity testing. Verification of kit performance was done by the [facility] Microbiology Lab prior to clinical use. Performing Organization Address City/[facility]/Zipcode Phone Number [address] [address] [facility] * STOOL PATH CHARGE (08/11/2018 9:08 AM CDT) Only the most recent of 3 results within the time period is included. Pathogen exam charged Done [facility] Specimen Stool - Per Rectum Performing Organization Address [facility] Phone Number [address] [address] [phone] [place] [address] * Stool culture + Shiga toxin (08/11/2018 9:08 AM CDT) Only the most recent of 3 results within the time period is included. Result No Salmonella, Shigella or [facility] Campylobacter isolated [facility] Specimen Stool - Per Rectum Performing Organization Address [facility] Phone Number [address] [address] [facility] * Hemoglobin A1c (08/11/2018 6:37 AM CDT) Only the most recent of 2 results within the time period is included. Hemoglobin A1C 5.8 4.3 - 6.1 % [facility] Specimen Blood Performing Organization Address [facility] Phone Number [address] [address] [facility] * CT abdomen pelvis with IV contrast (08/10/2018 11:44 PM CDT) Narrative Performed At FINAL REPORT [facility] CT, ABDOMEN \\T\\ PELVIS, WITH IV CONTRAST [...] MD Report Verified Date/Time:08/10/2018 23:52:19 Reading Location: [address] Reading Room Procedure Note Interface, External [...] Report Verified Date/Time: 08/10/2018 23:52:19 Reading Location: [address] Reading Room Performing Organization Address City/State/Zipcode Phone Number [facility] * Shiga Toxin Screen (08/10/2018 11:22 PM CDT) Only the most recent of 2 results within the time period is included. Shiga toxin 1 Not detected Not detected [facility] Shiga toxin 2 Not detected Not detected [facility] Specimen Stool - Per Rectum Performing Organization Address City/State/Zipcode Phone Number [facility] [address] [place] [phone] MEDICAL CENTER * Urinalysis w/ Microscopic (08/10/2018 11:21 PM CDT) Color, UA Colorless [facility] Clarity, UA Clear [facility] Specific [place], UA 1.003 1.001 - 1.035 [facility] pH, UA 5.0 5.0 - 8.0 [facility] Protein, UA Negative Negative [facility] Glucose, UA Negative Negative [facility] Ketones, UA Negative Negative [facility] Bilirubin, UA Negative Negative [facility] Blood, UA Negative Negative [facility] Nitrite, UA Negative Negative [facility] Leukocytes, UA Negative Negative [facility] Urobilinogen, UA 0.2 0.2 - 1.0 mg/dL [facility] RBC, UA <1 /HPF [facility] WBC, UA 1 /HPF [facility] Bacteria, UA Rare [facility] Mucus Rare [facility] Squam Epithel, UA <1 /HPF [facility] Specimen Source Urine, Voided [facility] Specimen Urine - Urine, Voided Performing Organization Address [facility] Phone Number [address] * Lipase (08/10/2018 8:30 PM CDT) Lipase 67 8 - 78 U/L [facility] Specimen Blood - Arm, Left Performing Organization Address [facility] Phone Number [address] * Amylase (08/10/2018 8:30 PM CDT) Amylase 133 (H) 25 - 125 U/L [facility] Specimen Blood - Arm, Left Performing Organization Address [facility] Phone Number [address] * ECG 12 lead (08/10/2018 8:26 PM CDT) Narrative Performed At Ventricular Rate 98 BPM [facility] Atrial Rate 98 BPM P-R Interval 134 ms QRS Duration 74 ms Q-T Interval 366 ms QTC Calculation(Bazett) 467 ms P Royal 23 degrees R Royal 44 degrees T Royal 108 degrees Normal sinus rhythm Nonspecific ST [...] 366 ms QTC Calculation(Bazett) 467 ms P Royal 23 degrees R Royal 44 degrees T Royal 108 degrees Normal sinus rhythm Nonspecific ST [...] 2:56 PM CDT) Case Report Surgical Pathology [facility] Report [facility] Case: [id number] Authorizing Provider:Trever Das, Collected: 04/03/2018 1456 Ordering Location: [address] Received: 04/06/2018 0826 SERVICE Pathologist: Jarek [...] r/o cmv DIAGNOSIS A. STOMACH, ANTRUM, GREATER [facility] CURVATURE, BIOPSY: [facility] - ANTRAL MUCOSA WITH CHRONIC INACTIVE [...] DYSPLASIA, MALIGNANCY Signing Pathologist Direct Phone Line: [phone] COMMENT The biopsies show diffuse [facility] chronic active colitis which [facility] correlates with the endoscopic impression of [...] recommended. IDC: Dr. Perry concepcion. CPT Code(s) 14594w7 [facility] [id number] [facility] CLINICAL HISTORY Crohn's disease, rule out CMV [facility] SPECIMEN SOURCE A. Antrum greater curvature [facility] biopsy. B. Antrum lesser [facility] curvature biopsy. C. Incisura stomach biopsy. D. Stomach body greater curvature biopsy. E. Stomach body lesser curvature biopsy. F. Random right/ascending colon biopsy. G. Random left/descending colon biopsy. H. Sigmoid pseudopolyp. I. Rectum biopsy GROSS DESCRIPTION Specimen A: Received in [facility] formalin labeled "antrum", [facility] description "greater curvature" are two fragments [...] DB/ew MICROSCOPIC DESCRIPTION A-E. Immunostains for H.pylori [facility] are examined. [facility] F-I. Section shows multiple fragments of [...] pseudopolyp. SPECIAL STUDIES The following special studies [facility] were performed on this case [facility] and the interpretation is incorporated in the diagnostic report above: The immunohistochemistry test was developed and its performance characteristics determined by [facility], Pathology Laboratory. It has not been [...] Specimen Tissue - Antrum Performing Organization Address [facility] Phone Number [address] * Calcium, Ionized (04/03/2018 4:15 AM CDT) Only the most recent of 2 results within the time period is included. Calcium, Ion 0.99 (L) 1.12 - 1.27 mmol/L [facility] pH, Blood 7.45 [facility] Specimen Blood - Arm, Left Performing Organization Address [facility] Phone Number [address] * Ova and Parasite Examination (04/02/2018 11:55 AM CDT) O&P Direct Smear Comment: Test not performed at No ova or parasites seen [facility]. See scanned report. [facility] O&P Concentrate Smear No ova or parasites seen No ova or parasites seen [facility] O&P Trichrome Smear No ova or parasites seen No ova or parasites seen [facility] Specimen Stool - Stool Narrative Performed At Performing Organization Address [facility] Phone Number [address] [address] [phone] [place] [address] * B-type Natriuretic Factor (BNP) (04/02/2018 5:12 AM CDT) BNP 155 (H) 0 - 100 pg/mL [facility] Specimen Blood - Arm, Left Performing Organization Address [facility] Phone Number [address] [address] [facility] * Comprehensive metabolic panel (04/01/2018 10:10 PM CDT) Protein, Total 7.1 6.0 - 8.3 gm/dL [facility] Albumin 3.4 (L) 3.5 - 5.0 g/dL [facility] Alkaline Phosphatase 66 40 - 150 U/L [facility] Total Bilirubin 0.1 (L) 0.2 - 1.2 mg/dL [facility] Sodium 138 136 - 145 meq/L [facility] Potassium 3.6 3.5 - 5.1 meq/L [facility] Chloride 107 98 - 107 meq/L [facility] CO2 23 22 - 29 meq/L [facility] BUN 10 7 - 21 mg/dL [facility] Creatinine 0.66 0.57 - 1.25 mg/dL [facility] Glucose 103 70 - 105 mg/dL [facility] Calcium 8.2 (L) 8.4 - 10.2 mg/dL [facility] AST 9 5 - 34 U/L [facility] ALT 6 6 - 55 U/L [facility] EGFR 88Comment: ESTIMATED GFR IS mL/min/1.[address] [facility] NOT ACCURATE CREATININE [facility] CLEARANCE IN PREDICTING GLOMERULAR FILTRATION RATE. ESTIMATED GFR IS NOT APPLICABLE FOR DIALYSIS PATIENTS. Specimen Blood - Central Venous Line Performing Organization Address City/State/Zipcode Phone Number [address] [phone] [facility] * Occult blood, stool (04/01/2018 10:05 PM CDT) Occult blood Positive (A) Negative [facility] Specimen Stool - Stool Performing Organization Address City/State/Zipcode Phone Number [facility] [address] [place], [place] [phone] [facility] * Fecal leukocytes (04/01/2018 10:05 PM CDT) Fecal Leukocytes 1+ Fecal leukocytes seen (A) No fecal leukocytes seen [facility] Specimen Stool - Stool Performing Organization Address City/State/Zipcode Phone Number [facility] [address] [place], [place] [phone] [facility] after 09/16/2017 Insurance Payer Benefit Subscriber ID Type Phone Address Plan / Group MEDICARE MEDICARE A xxxxxxxxxxx Medicare B MEDICAID MEDICAID xxxxxxxxx Medicaid OF [place] Advance Directives For more information, please contact: [address] [address] Date Inactivated Comments Code Status Date Activated 08/15/2018 4:51 PM Full Code 08/11/2018 5:29 AM This code status was determined by: Patient 04/04/2018 9:49 PM Full Code 04/01/2018 7:36 PM This code status was determined by: Patient
[2018-09-17 19:37] LABS: CLARITY,URINE CLEAR (CLEAR); COLOR,URINE STRAW (YELLOW)
[2018-09-17 19:38] LABS: BILIRUBIN,URINE NEGATIVE (NEGATIVE); KETONES,URINE NEGATIVE (NEGATIVE); LEUKOCYTE ESTERASE ,URINE NEGATIVE (NEGATIVE); NITRITE,URINE NEGATIVE (NEGATIVE); PROTEIN,URINE DIPSTICK NEGATIVE (NEGATIVE); URINE UROBILINOGEN 0.2 mg/dL (0.2 - 1)
[2018-09-17 19:46] LABS: BACTERIA,URINE RARE /HPF; EPITHELIAL CELLS,URINE FEW /LPF; RBC,URINE 0-5 /HPF (0-5); WBC,URINE (MAN) 0-5 /HPF (0-5)
[2018-09-17 20:00] VITALS: BP 115/50
[2018-09-17] MEDS: SODIUM CHLORIDE 0.9% 1000ML 1,000 ML IV SCH (22:48)
[2018-09-17] MEDS: METRONIDAZOLE 500MG/NS 100ML 100 ML IV SCH (22:49)
[2018-09-17] MEDS: METHYLPREDNISOLONE SOD SUCC 125 MG/2ML VIAL IV SCH (22:49)
[2018-09-17] MEDS: HYDROMORPHONE 2MG/ML 2 MG/ML ML IV PRN (23:17)
--- NOTE | 2018-09-17 23:26 | History and Physical ---
CHIEF COMPLAINT: Abdominal pain. HISTORY OF PRESENT ILLNESS: The patient is a 72-year-old woman with a history of inflammatory bowel disease. She receives Remicade every 8 weeks through a clinic at the [facility]. She also reports a history of pancreatitis 4 or 5 months ago that was treated at [facility]. Four days ago, she had some abdominal pain and diarrhea. She subsequently developed some constipation, but the abdominal pain subsided. This morning, abdominal pain recurred as did the constipation. She had small amount of vomiting and small amount of blood in her stool. She came to the emergency department and had a CT scan of the abdomen and pelvis that showed active inflammatory bowel disease involving the transverse, descending, and sigmoid colon. PAST MEDICAL HISTORY 1. Inflammatory bowel disease. 2. Pancreatitis. 3. Possible bronchiectasis. PAST SURGICAL HISTORY 1. Status post mastectomy on the right side. 2. Status post breast reconstruction. FAMILY HISTORY: Noncontributory. ALLERGIES: THE PATIENT IS ALLERGIC TO PENICILLIN, CIPROFLOXACIN, AND CLARITHROMYCIN. SOCIAL HISTORY: The patient is not an active smoker or drinker. REVIEW OF SYSTEMS: The patient has no fever. She has no headache. She has no neck pain. She is not having any chest pain. She has no cough or dyspnea. She reports abdominal pain along with constipation. She also notes back pain. She did have a little bit of nausea and small amount of vomiting. She denies any leg swelling or leg edema. She has no focal neurological abnormalities. PHYSICAL EXAMINATION GENERAL: The patient is afebrile. VITAL SIGNS: Blood pressure is 115/62 and pulse is 88. HEENT: No facial swelling or erythema. The nasal mucosa is normal. The oropharynx is normal. LYMPHATIC: No submandibular, cervical or supraclavicular adenopathy. NECK: No JVD or thyromegaly. CARDIOVASCULAR: Regular rate and rhythm with normal S1 and S2. There are no murmurs or rubs. RESPIRATORY: Auscultation of lungs reveals clear breath sounds bilaterally. There is no wheezing. ABDOMEN: Distended, but only mildly tender. There is no guarding. There is no leg edema. LABORATORY DATA: White blood cell count is 5.2 and hemoglobin is 9.2. The platelet count is 402. The BUN to creatinine ratio is normal. Stool is positive for occult blood. IMPRESSION 1. Inflammatory bowel disease with acute flare. 2. History of breast cancer, treated with surgery. 3. Remote history of bronchiectasis with no acute exacerbation. PLAN 1. Patient will be n.p.o. 2. Patient will receive IV antibiotics along with pain medication. 3. Intravenous fluids. 4. GI consultation. 5. Dietary consultation. Job#: [id number] VAS KENJI
[2018-09-18] VITALS (9 sets, daily range): BP systolic 99–150; BP diastolic 49–84
[2018-09-18] MEDS: SODIUM CHLORIDE 0.9% 1000ML 1,000 ML IV SCH ×3 (03:12→20:29)
[2018-09-18 05:34] LABS: BASOPHILS % 0.4 % (0.0-1.0); EOSINOPHILS % 0.4 % (0.0-6.0); HEMATOCRIT 26.5 % (34.2-44.1); HEMOGLOBIN 7.7 g/dL (12.0-16.0); LYMPHOCYTES # (AUTO) 0.6 (1.0-3.2); LYMPHOCYTES % 21.5 % (18.0-39.1); MEAN CORPUSCULAR HEMOGLOBIN 23.2 pg (28-32); MEAN CORPUSCULAR HGB CONC 29.1 g/dL (31-35); MEAN CORPUSCULAR VOLUME 79.8 fL (81-99); MONOCYTES # (AUTO) 0.1 (0.2-0.8); MONOCYTES % 2.7 % (4.4-11.3); NEUTROPHILS % 74.6 % (38.7-80.0); PLATELET COUNT 337 x10e3/uL (140-360); RED BLOOD COUNT 3.32 x10e6/uL (3.6-5.1)
[2018-09-18] MEDS: METRONIDAZOLE 500MG/NS 100ML 100 ML IV SCH ×3 (05:43→22:00)
[2018-09-18 06:00] LABS: ALBUMIN 2.6 g/dL (3.5-5.0); ALBUMIN/GLOBULIN RATIO 0.6 (0.8-2.0); ALKALINE PHOSPHATASE 67 IU/L (40-150); AMYLASE 75 U/L (25-125); ANION GAP 12.7 mmol/L (8-16); BLOOD UREA NITROGEN 5 mg/dL (7-26); BUN/CREATININE RATIO 8 (6-25); CALCIUM 8.6 mg/dL (8.4-10.2); CARBON DIOXIDE 21 mmol/L (22-29); CHLORIDE 106 mmol/L (98-107); EST GLOMERULAR FILTRATION RATE > 60 ML/MIN (60-); GLUCOSE 163 mg/dL (74-118); LIPASE 23 U/L (8-78); POTASSIUM 3.7 mmol/L (3.5-5.1); SODIUM 136 mmol/L (136-145)
[2018-09-18 06:02] LABS: ALANINE AMINOTRANSFERASE < 6 IU/L (0-55)
[2018-09-18] MEDS ORDERED: SODIUM CHLORIDE 0.9% 50ML 50 ML ONE (06:17)
[2018-09-18] MEDS ORDERED: IOPAMIDOL 370 MG/ML 200 ML INFUS..BTL INJ ONE (06:17)
[2018-09-18 08:34] LABS: BASOPHILS % 0.5 % (0.0-1.0); HEMATOCRIT 26.3 % (34.2-44.1); HEMOGLOBIN 7.9 g/dL (12.0-16.0); LYMPHOCYTES # (AUTO) 0.6 (1.0-3.2); LYMPHOCYTES % 27.9 % (18.0-39.1); MEAN CORPUSCULAR HEMOGLOBIN 23.9 pg (28-32); MEAN CORPUSCULAR VOLUME 79.5 fL (81-99); MONOCYTES # (AUTO) 0.1 (0.2-0.8); MONOCYTES % 2.3 % (4.4-11.3); NEUTROPHILS # (AUTO) 1.5 (2.1-6.9); NEUTROPHILS % 68.8 % (38.7-80.0); PLATELET COUNT 301 x10e3/uL (140-360); RED BLOOD COUNT 3.31 x10e6/uL (3.6-5.1); RED CELL DISTRIBUTION WIDTH 15.8 % (11.7-14.4)
[2018-09-18] MEDS: PANTOPRAZOLE 40 MG 10ML VIAL IV SCH (09:00)
[2018-09-18] MEDS: AZTREONAM 2GM/NS 100ML 2 GM in AZTREONAM 2GM/NS 100ML 100 ML IV SCH ×2 (09:00→19:00)
[2018-09-18] MEDS: METHYLPREDNISOLONE SOD SUCC 125 MG/2ML VIAL IV SCH ×2 (09:00→20:30)
[2018-09-18] MEDS: FAMOTIDINE 20 MG/2 ML VIAL IV SCH ×2 (09:00→17:00)
[2018-09-18 09:23] LABS: BAND NEUTROPHILS % (MANUAL) 6 %; LYMPHOCYTES % (MANUAL) 14 % (19-48); MONOCYTES % (MANUAL) 2 % (3.4-9.0); NEUTROPHILS % (MANUAL) 78 % (40-74)
[2018-09-18 09:24] LABS: PLATELET ESTIMATE ADEQUATE; PLATELET MORPHOLOGY COMMENT NORMAL; RBC MORPHOLOGY COMMENT NORMAL
[2018-09-18] MEDS: HYDROMORPHONE 2MG/ML 2 MG/ML ML IV PRN (09:30)
[2018-09-18 09:51] LABS: ANISOCYTOSIS SLIGHT; LYMPHOCYTES % (MANUAL) 25 % (19-48); MICROCYTOSIS SLIGHT; MONOCYTES % (MANUAL) 4 % (3.4-9.0); NEUTROPHILS % (MANUAL) 69 % (40-74); PLATELET ESTIMATE ADEQUATE; PLATELET MORPHOLOGY COMMENT NORMAL; RBC MORPHOLOGY COMMENT NORMAL
[2018-09-18] MEDS ORDERED: DEXTROSE 50% SYRINGE 50 ML IV PRN (13:30)
--- NOTE | 2018-09-18 13:54 | Consultation ---
DATE OF CONSULTATION: September 18, 2018 Ms. Gage got admitted yesterday with what seems to be a flare-up of her inflammatory disease. She said that she was diagnosed 6 years ago. From the record available, it most probably is ulcerative colitis. She is being treated by Dr. Clemente at [facility], phone# [phone]. She was treated with IV infusion of Entyvio. The last infusion was early this month. She said she was not doing well, and I suggested that they may shorten her infusion from every 8 weeks, to every 4 weeks. However, soon after her last infusion she developed severe abdominal pain, cramp, frequent bowel movements, blood in the stool, occasional nausea and vomiting. She denied any fever, denied any weight loss and admitted to the hospital with flare-up of inflammatory bowel disease. In addition, to her mentioned GI complaints she also complained of severe heartburn and acid reflux, and she was treated with Protonix. According to the patient, her last endoscopy, both upper and lower, were done about 2 years ago. Soon after her admission, Dr. Mcbride started her on IV hydrocortisone and today the patient states she is feeling a whole lot better. Her abdominal cramping has stopped and she did not feel nauseated any more, and her diarrhea has subsided to only 2 bowel movements today and no blood. ALLERGIES: LONG LIST OF ALLERGIES, ARTHROTEC, MORPHINE, PENICILLIN, ACETAMINOPHEN, ASPIRIN, CIPRO, ERYTHROMYCIN, DIPHENHYDRAMINE, FLURBIPROFEN, IBUPROFEN, NAPROXEN, HYDROCODONE AND PAMABROM. CURRENT MEDICATIONS: She is on Dilaudid, Solu-Medrol 125 mg q.12 h., aztreonam, Flagyl, Protonix, Pepcid, Vasotec, Ativan, and Zofran. PAST SURGICAL HISTORY: Right mastectomy and breast reconstruction and cholecystectomy and implant in her left eye. FAMILY MEDICAL HISTORY: Noncontributory. SOCIAL HISTORY: She does not smoke or drink. PAST MEDICAL HISTORY: Only consistent with some dementia and she does see a neurologist. PHYSICAL EXAMINATION GENERAL: Awake, alert, oriented. VITAL SIGNS: Temperature 96.5, pulse 78, blood pressure 150/84. HEENT: Normal sclerae. NECK: Supple. LUNGS: Clear to auscultation. HEART: Irregular, irregular rhythm. ABDOMEN: Soft, not distended. No acute findings. No masses, no organomegaly. EXTREMITIES: No edema. LABORATORY DATA: White blood cell count 2.2, hemoglobin 7.9, hematocrit 26, platelets 301,000. Urinalysis unremarkable. BUN 5, creatinine 0.6, sodium 136, potassium 3.7, calcium 8.6, total bilirubin normal, alkaline phosphatase normal, ALT normal, AST normal. Total protein 6.7, albumin 2.6, amylase normal, lipase normal. She had a CT scan of the abdomen with contrast that showed wall thickening, suggestive inflammation of the left colon and also to some degree in the cecum. IMPRESSION: Ms. Gage is a patient of Dr. Clemente from [facility]. She is known to have inflammatory bowel disease treated with Entyvio. Apparently, she is not responding well to treatment. Currently, she is better on IV hydrocortisone. Will continue the same dose, and if she is better by Friday will switch her to oral 40 mg prednisone and discharge her home to follow with Dr. Clemente at [facility] and her clinic. In the meantime, will start her on Lactose free soft diet. Also, I am checking her stools for Clostridium difficile. Stool cultures and stool ova and parasites. I am checking her blood sedimentation rate and serum reactive protein, and I started her on probiotic. She is anemic at 7.9, but she is [employer]. Will keep an eye on that. I do not think it will drop further since her bleeding has stopped. However, if she continues to bleed, we may ask hematology service for assistance. I left a message for Dr. Clemente regarding that his patient presented at our hospital, and if he had any instruction for her and I will update the note. Job#: [id number]
[2018-09-18] MEDS: INSULIN REGULAR, HUMAN 100 UNIT/1 ML 3ML VIAL SQ SCH ×2 (16:30→21:00)
[2018-09-18] MEDS: LACTOBACILLUS ACIDOPHILUS CAPSULE PO SCH (17:00)
[2018-09-18] MEDS ORDERED: PANTOPRAZOLE SO40 MG PO (17:46)
[2018-09-18] MEDS ORDERED: SERTRALINE HCL25 MG PO (17:46)
[2018-09-18] MEDS ORDERED: HYDROXYZINE HCL25 MG PO (17:46)
[2018-09-18] MEDS ORDERED: LYRICA50 MG PO (17:46)
[2018-09-18] MEDS ORDERED: XYZAL5 MG PO (17:46)
[2018-09-18] MEDS ORDERED: LORAZEPAM1 MG PO (17:46)
[2018-09-18] MEDS ORDERED: GLIMEPIRIDE2 MG PO (17:46)
[2018-09-19] VITALS (7 sets, daily range): BP systolic 92–134; BP diastolic 37–63
[2018-09-19] MEDS: SODIUM CHLORIDE 0.9% 1000ML 1,000 ML IV SCH ×2 (02:48→10:48)
[2018-09-19] MEDS: METRONIDAZOLE 500MG/NS 100ML 100 ML IV SCH ×3 (06:00→21:04)
[2018-09-19] MEDS: AZTREONAM 2GM/NS 100ML 2 GM in AZTREONAM 2GM/NS 100ML 100 ML IV SCH (07:00)
[2018-09-19] MEDS: INSULIN REGULAR, HUMAN 100 UNIT/1 ML 3ML VIAL SQ SCH ×4 (07:30→20:53)
[2018-09-19] MEDS: GLIMEPIRIDE 2 MG TAB PO SCH ×2 (08:00→17:00)
[2018-09-19] MEDS: LACTOBACILLUS ACIDOPHILUS CAPSULE PO SCH ×2 (09:00→17:00)
[2018-09-19] MEDS: FAMOTIDINE 20 MG/2 ML VIAL IV SCH ×2 (09:00→17:00)
[2018-09-19] MEDS: PANTOPRAZOLE 40 MG 10ML VIAL IV SCH (09:00)
[2018-09-19] MEDS: METHYLPREDNISOLONE SOD SUCC 125 MG/2ML VIAL IV SCH ×2 (09:00→21:00)
--- NOTE | 2018-09-19 09:33 | Diagnostic Imaging Report ---
Examination: Single AP view of the chest. COMPARISON: Portable chest 09/17/2018 INDICATION: Midline placement IMPRESSION: 1. Lines and Tubes: Peripherally inserted venous catheter is noted in the proximal left arm, with distal tip projecting in the expected location of the axillary vein. Stable multilead left upper chest cardiac device. 2. Lungs are well-inflated. Mild central pulmonary venous congestion and perihilar interstitial prominence. No consolidation or effusion. 3. Mildly enlarged cardiac silhouette. 4. No acute bony abnormalities. Signed by: Dr. Demarcus Cooper M.D. on 09/19/2018 9:29 AM
[2018-09-19] MEDS ORDERED: HYDROXYZINE HCL 25 MG TAB PO PRN (12:30)
[2018-09-19] MEDS ORDERED: LORAZEPAM 1 MG TAB PO PRN (12:30)
--- NOTE | 2018-09-19 15:33 | Progress Note ---
DATE: SUBJECTIVE: Last night, I spoke at length with Dr. Clemente from [facility], her program control analyst, who has been taking care about the information that I gather from Dr. Clemente that patient is being extremely incompliant to her treatment to the point which they felt at some point that only way to control her ulcerative colitis is colectomy and patient refused. Also I gather from the Dr. Clemente that patient has bronchiectasis and she was growing some form of mycobacterium species and a matter of fact that is why she is not a good candidate for anti-tumor necrosis factor such as Remicade and currently she need to be weaned off her hydrocortisone based on the information provided. OBJECTIVE GENERAL: Today, the patient is awake, alert and oriented. VITAL SIGNS: Temperature is 96.7, pulse 71, blood pressure 116/55. LABS: Her lab tests came back, ESR of 90. Serum reactive protein highly elevated at 47. Calprotectin is still pending, but interestingly her stool specimen came back positive for Clostridium difficile. ASSESSMENT AND PLAN: My plan for her today to continue wean her off the hydrocortisone completely. Stop all the antibiotics. Start vancomycin 125 every 6 hours. Continue the probiotic. Start her on antispasmodic agent such as Levsin and when patient is clinically better, we will send her back to see Dr. Clemente at [facility]. Job#: [id number] TY
[2018-09-19] MEDS ORDERED: VALCYTE450 MG PO (15:56)
[2018-09-19] MEDS ORDERED: OXYBUTYNIN CHLOR5 M1 PO (15:56)
[2018-09-19] MEDS ORDERED: METOPROLOL SUCC25 MG PO (15:56)
[2018-09-19] MEDS ORDERED: LAMICTAL100 MG PO (15:56)
[2018-09-19] MEDS: HYOSCYAMINE SULFATE 0.5 MG/ML INJ IV SCH (17:00)
[2018-09-19] MEDS: LAMOTRIGINE 100 MG TAB PO SCH (17:00)
[2018-09-19] MEDS: VANCOMYCIN 250MG/5ML ORAL SOLN PO SCH ×2 (18:00→23:35)
[2018-09-20] VITALS: BP 110/57
[2018-09-20] MEDS: SODIUM CHLORIDE 0.9% 1000ML 1,000 ML IV SCH ×2 (01:09→14:00)
[2018-09-20 04:00] VITALS: BP 119/58
[2018-09-20] MEDS: METRONIDAZOLE 500MG/NS 100ML 100 ML IV SCH ×3 (05:06→21:26)
[2018-09-20] MEDS: VANCOMYCIN 250MG/5ML ORAL SOLN PO SCH ×3 (05:06→18:00)
[2018-09-20] MEDS: INSULIN REGULAR, HUMAN 100 UNIT/1 ML 3ML VIAL SQ SCH ×4 (07:30→21:00)
[2018-09-20 08:00] VITALS: BP 132/60
[2018-09-20] MEDS: PANTOPRAZOLE SOD 40 MG TABEC PO SCH (08:30)
[2018-09-20] MEDS: FAMOTIDINE 20 MG/2 ML VIAL IV SCH ×2 (09:00→17:00)
[2018-09-20] MEDS: PREGABALIN 50 MG CAP PO SCH (09:00)
[2018-09-20] MEDS: LACTOBACILLUS ACIDOPHILUS CAPSULE PO SCH ×2 (09:00→17:00)
[2018-09-20] MEDS: SERTRALINE HCL 50 MG TAB PO SCH (09:00)
[2018-09-20] MEDS: LAMOTRIGINE 100 MG TAB PO SCH ×2 (09:00→17:00)
[2018-09-20] MEDS ORDERED: LORATADINE 10 MG TAB PO SCH (09:00)
[2018-09-20] MEDS: METOPROLOL SUCCINATE 25 MG TAB XL PO SCH (09:00)
[2018-09-20] MEDS: OXYBUTYNIN CHLORIDE XL 5 MG TAB PO SCH (09:00)
[2018-09-20] MEDS: METHYLPREDNISOLONE SOD SUCC 40 MG/ML VIAL IV SCH ×2 (09:00→21:00)
[2018-09-20] MEDS: GLIMEPIRIDE 2 MG TAB PO SCH (09:00)
[2018-09-20] MEDS: HYOSCYAMINE SULFATE 0.5 MG/ML INJ IV SCH ×2 (09:00→17:00)
[2018-09-20 12:19] VITALS: BP 123/61
[2018-09-20 15:58] VITALS: BP 127/58
[2018-09-20 20:00] VITALS: BP 120/58
[2018-09-21] VITALS: BP 119/58
[2018-09-21 04:00] VITALS: BP 132/60
[2018-09-21] MEDS: VANCOMYCIN 250MG/5ML ORAL SOLN PO SCH ×4 (06:00→17:47)
[2018-09-21] MEDS: METRONIDAZOLE 500MG/NS 100ML 100 ML IV SCH ×2 (06:00→14:41)
[2018-09-21 07:30] VITALS: BP 127/61
[2018-09-21] MEDS: INSULIN REGULAR, HUMAN 100 UNIT/1 ML 3ML VIAL SQ SCH ×3 (07:30→16:30)
[2018-09-21] MEDS: PANTOPRAZOLE SOD 40 MG TABEC PO SCH (07:59)
[2018-09-21 08:52] VITALS: BP 127/61
[2018-09-21] MEDS: FAMOTIDINE 20 MG/2 ML VIAL IV SCH ×2 (09:00→17:43)
[2018-09-21] MEDS: HYOSCYAMINE SULFATE 0.5 MG/ML INJ IV SCH ×2 (09:00→17:43)
[2018-09-21] MEDS: PREGABALIN 50 MG CAP PO SCH (10:23)
[2018-09-21] MEDS: OXYBUTYNIN CHLORIDE XL 5 MG TAB PO SCH (10:23)
[2018-09-21] MEDS: LACTOBACILLUS ACIDOPHILUS CAPSULE PO SCH ×2 (10:23→17:43)
[2018-09-21] MEDS: LAMOTRIGINE 100 MG TAB PO SCH ×2 (10:23→17:43)
[2018-09-21] MEDS: GLIMEPIRIDE 2 MG TAB PO SCH (10:23)
[2018-09-21] MEDS: SERTRALINE HCL 50 MG TAB PO SCH (10:23)
[2018-09-21] MEDS: METOPROLOL SUCCINATE 25 MG TAB XL PO SCH (10:23)
[2018-09-21] MEDS: METHYLPREDNISOLONE SOD SUCC 40 MG/ML VIAL IV SCH (12:00)
[2018-09-21 13:11] VITALS: BP 129/60
[2018-09-21 17:00] VITALS: BP 133/71
== END 2018-09-21 19:38 | DRG 372 ==
LOC: ER 14:48 → ERHOLD 18:48 → MED/SURG3 20:27 → OBSVTOIN 09-19 08:12
PROC: 05HA33Z Insertion of Infusion Device into Left Brachial Vein, Percutaneous Approach (ICD-10-PCS; principal; 2018-09-17)
PROC: 05HF33Z Insertion of Infusion Device into Left Cephalic Vein, Percutaneous Approach (ICD-10-PCS; 2018-09-21)
DX: A04.72 Enterocolitis due to Clostridium difficile, not specified as recurrent (principal); K51.90 Ulcerative colitis, unspecified, without complications; Z85.3 Personal history of malignant neoplasm of breast; F03.90 Unspecified dementia, unspecified severity, without behavioral disturbance, psychotic disturbance, mood disturbance, and anxiety; Z91.19 Patient's noncompliance with other medical treatment and regimen; J47.9 Bronchiectasis, uncomplicated; E11.9 Type 2 diabetes mellitus without complications; D50.0 Iron deficiency anemia secondary to blood loss (chronic); Z79.84 Long term (current) use of oral hypoglycemic drugs; Z88.6 Allergy status to analgesic agent; Z88.1 Allergy status to other antibiotic agents; Z88.5 Allergy status to narcotic agent; Z88.8 Allergy status to other drugs, medicaments and biological substances
CPT/HCPCS: 36415; 36568; 71045; 74177; 74470; 80053; 81001; 82150; 82270; 82550; 82553; 82948; 83690; 83880; 83993; 84484; 85025; 85379; 85651; 86140; 87045; 87177; 87328; 87493; 93005; 99284; G0378; J1980; J2405; J2920; J2930; J7030; Q9967

== ENCOUNTER 2018-10-14 14:56 | Emergency (ER) | payer MEDICARE, OTHER ==
[~2018-10-14] VITALS: Ht 149.9 cm; Wt 48.5 kg
[~2018-10-14 14:56] MED LIST: GLIMEPIRIDE2 MG PO; HYDROXYZINE HCL25 MG PO; LAMICTAL100 MG PO; LORAZEPAM1 MG PO; LYRICA50 MG PO; METOPROLOL SUCC25 MG PO; OXYBUTYNIN CHLOR5 M1 PO; PANTOPRAZOLE SO40 MG PO; SERTRALINE HCL25 MG PO; VALCYTE450 MG PO; XYZAL5 MG PO
--- OUTSIDE RECORDS SUMMARY | 2018-10-14 14:59 | XMS REPORT | Clinical Summary ---
Author Author [facility] Address Unknown Phone Unavailable Care Team Providers Care Butcher Meat Name Role Phone Anders Brady Betty PCP Sharpless Unavailable Allergies Comments Active Allergy Reactions Severity Noted Date Naproxen Sodium 12/15/2015 Acetaminophen-Calcium 12/15/2015 Carbonat Diclofenac-Misoprostol 12/15/2015 Aspirin 12/15/2015 Ciprofloxacin 10/31/2016 Clarithromycin 10/31/2016 Coconut 04/01/2018 Diphenhydramine 10/31/2016 Erythromycin 12/15/2015 Flurbiprofen 04/01/2018 Hydrocodone-Ibuprofen 12/15/2015 Ibuprofen 04/01/2018 Lisinopril Itching, Low 08/11/2018 Anxiety Acetaminophen-Pamabrom 10/31/2016 Morphine Sulfate 10/31/2016 Nsaids (Non-Steroidal 10/31/2016 Anti-Inflammatory Drug) Onion 04/01/2018 Uinta 04/01/2018 Hernando (Prunus Persica) 04/01/2018 Pear 04/01/2018 Penicillins 10/31/2016 [...] 08/27/2018 Discontinued iron polysacch Take 1 0 [id number] 150-25-1 capsule by mg-mcg-mg Cap mouth 2 [...] 08/10/2018 Orders Only General Internal Medicine Dru aHnson MD 04/03/2018 Anesthesia Gastroenterology Event [facility], Trever Horvath MD UPPER ENDOSCOPY,BIOPSY 04/03/2018 Surgery Gastroenterology Nayeli Bermudez MD Parhizgar, Alireza, MD Crohn's disease with complication, unspecified gastrointestinal tract location (HCC); Hypertension, unspecified type; Intractable diarrhea; Episode of recurrent major depressive disorder, unspecified depression episode severity (HCC); Type 2 diabetes mellitus without complication, without long-term current use of insulin (HCC); Aspergillus ([facility]); 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 POC-Glucose Meter 143 (H)Comment: TESTED AT 70 - 110 mg/dL [facility] [address] [facility] [address] Specimen Blood Performing Organization Address City/State/Zipcode Phone Number [address] [address] [facility] * Manual Differential (08/15/2018 8:25 AM CDT) % Neutros 43 % [facility] % Lymphs 21 % [facility] % Monos 3 % [facility] % Eos 4 % [facility] % Baso 1 % [facility] % Bands 29 (H) 0 - 10 % [facility] # Neutros 3.14 1.56 - 6.13 K/ul [facility] # Lymphs 1.53 1.18 - 3.74 K/ul [facility] # Monos 0.22 (L) 0.24 - 0.36 K/uL [facility] # Eos 0.29 0.04 - 0.36 K/uL [facility] # Baso 0.07 0.01 - 0.08 K/uL [facility] # Bands 2.12 (H) 0.00 - 0.80 K/uL [facility] Total Counted [address] [facility] WBC Morphology Normal [facility] Giant [facility]let Present [facility] Large Platelet Present [facility] Hypochromia 2+ moderate [facility] Anisocytosis 2+ moderate [facility] Microcytes 1+ few [facility] Macrocytes 2+ moderate [facility] Poikilocytes 1+ few [facility] Ovalocytes 1+ few [facility] Tear Drop Cells 1+ few [facility] Acanthocytes 1+ few [facility] Artifact Present [facility] Platelet Conc Adequate [facility] Specimen Blood - Arm, Left Narrative Performed At Received comment: [facility] User comments: [facility] Slide comments: Performing Organization Address City/State/Zipcode Phone Number [facility] [address] [place] [address] MEDICAL CENTER * CBC with platelet count + automated diff (08/15/2018 8:25 AM CDT) Only the most recent of 8 results within the time period is included. WBC 7.3 3.5 - 10.5 K/L [facility] RBC 3.44 (L) 3.93 - 5.22 M/L [facility] Hemoglobin 8.6 (L) 11.2 - 15.7 GM/DL [facility] Hematocrit 28.5 (L) 34.1 - 44.9 % [facility] MCV 82.8 79.4 - 94.[address] [facility] MCH 25.0 (L) 25.6 - 32.[address] [facility] MCHC 30.2 (L) 32.2 - 35.5 GM/DL [facility] RDW 16.3 (H) 11.7 - 14.4 % [facility] Platelets 451 (H) 150 - 450 K/CU MM [facility] MPV 9.0 (L) 9.4 - 12.[address] [facility] nRBC 0 0 - 0 /[address] [facility] Specimen Blood - Arm, Left Performing Organization Address City/State/Zipcode Phone Number [facility] [address] [place] [address] [facility] * Aspergillus antibodies (08/15/2018 5:46 AM CDT) [...] At Performing Lab [facility] *[employer] [address] [place] [phone] Jay Jay Phelps MD Performing Organization Address [facility] Cent[facility]ode Phone Number [facility] [employer], [address] [place] [phone] * Aspergillus galactomannan antigen (08/15/2018 5:46 AM CDT) Aspergillus Index Value <0.50 [facility] Aspergillus Antigen NOT DETECTED [facility] Comment: INCORPORATED REFERENCE RANGE: <0.50, NOT DETECTED A negative result does not exclude invasive aspergillosis. Follow-up testing may be indicated for high-risk patients. Specimen Blood - Arm, Left Narrative Performed At Performing Lab [facility] *[employer] [address] [place] [phone] Jay Jay Phelps MD Performing Organization Address [facility] Phone Number [facility], [address] [place], [place] [phone] * Magnesium (08/15/2018 5:46 AM CDT) Only the most recent of 7 results within the time period is included. Magnesium 2.0 1.6 - 2.6 mg/dL [facility] Specimen Blood - Arm, Left Performing Organization Address [facility] Centercout Phone Number [facility] [address] [place] [phone] * Immunoglobulin E (IgE) (08/15/2018 5:46 AM CDT) Immunoglobulin E 30 114 OR LESS kU/L [facility] Specimen Blood - Arm, Left Narrative Performed At Performing Lab [facility] [employer] [address] [address] Aman Cody MD, PhD, GIOVANNI Performing Organization Address City/[facility] Centercode Phone Number [facility] [employer] [place], [address] [place] [phone] * Basic Metabolic Panel (08/15/2018 5:46 AM CDT) Only the most recent of 8 results within the time period is included. Sodium 137 136 - 145 meq/L [facility] Potassium 4.1 3.5 - 5.1 meq/L [facility] Chloride 110 (H) 98 - 107 meq/L [facility] CO2 20 (L) 22 - 29 meq/L [facility] BUN 3 (L) 7 - 21 mg/dL [facility] Creatinine 0.66 0.57 - 1.25 mg/dL [facility] Glucose 114 (H) 70 - 105 mg/dL [facility] Calcium 8.3 (L) 8.4 - 10.2 mg/dL [facility] EGFR 88Comment: ESTIMATED GFR IS mL/min/1.73 sq m [facility] NOT ACCURATE CREATININE [facility] CLEARANCE IN PREDICTING GLOMERULAR FILTRATION RATE. ESTIMATED GFR IS NOT APPLICABLE FOR DIALYSIS PATIENTS. Specimen Blood - Arm, Left Performing Organization Address City/State/Zipcode Phone Number [facility] [address] [place] [address] [facility] * CT chest with high resolution/ild (08/14/2018 8:27 PM CDT) Narrative Performed At FINAL REPORT [employer] [facility] CLINICAL INDICATION: Sputum cultures positive for Aspergillus [...] MD Report Verified Date/Time:08/14/2018 20:51:25 Reading Location: [address] Reading Room Procedure Note Interface, External [...] Report Verified Date/Time: 08/14/2018 20:51:25 Reading Location: [address] Reading Room Performing Organization Address City/State/Zipcode Phone Number [facility] * GI Pathogen Profile by PCR -ID Only (08/14/2018 11:41 AM CDT) Only the most recent of 2 results within the time period is included. CAMPYLOBACTER (PCR) Not detected Not detected [facility] PLESIOMONAS SHIGELLOIDES Not detected Not detected [facility] (PCR) [facility] SALMONELLA (PCR) Not detected Not detected [facility] YERSINIA ENTEROCOLITICA Not detected Not detected [facility] (PCR) [facility] VIBRIO CHOLERAE (PCR) Not detected Not detected [facility] ENTEROAGGREGATIVE E. COLI Not detected Not detected [facility] (EAEC) BY PCR [facility] ENTEROPATHOGENIC E. COLI Not detected Not detected [facility] (EPEC) BY PCR [facility] ENTEROTOXIGENIC E. COLI Not detected Not detected [facility] (ETEC) LT/ST BY PCR [facility] SHIGA-LIKE Not detected Not detected [facility] TOXIN-PRODUCING E. COLI [facility] (STEC) STX1/STX2 E. COLI O157 (PCR) Not detected [facility] SHIGELLA/ENTEROINVASIVE Not detected Not detected [facility] E. COLI (EIEC) BY PCR [facility] CRYPTOSPORIDIUM (PCR) Not detected Not detected [facility] CYCLOSPORA CAYETANENSIS Not detected Not detected [facility] (PCR) [facility] ENTAMOEBA HISTOLYTICA Not detected Not detected [facility] (PCR) [facility] GIARDIA LAMBLIA (PCR) Not detected Not detected [facility] ADENOVIRUS F 40/41 (PCR) Not detected Not detected [facility] ASTROVIRUS (PCR) Not detected Not detected [facility] NOROVIRUS GI/GII (PCR) Not detected Not detected [facility] ROTAVIRUS A (PCR) Not detected Not detected [facility] SAPOVIRUS (I, II, IV, V) Not detected Not detected [facility] BY PCR [facility] VIBRIO (PARAHAEMOLYTICUS, Not detected Not detected [facility] VULNIFICUS) [facility] Specimen Stool - Stool Narrative Performed At Other viruses, parasites and bacteria not targeted by this PCR panel cannot be [facility] excluded; therefore clinical correlation and follow up of serology, culture [facility] results, and other molecular studies is required. The results are not intended to be used as the sole means for clinical diagnosis or patient management decisions. This sample was tested at the [facility] Molecular Diagnostics Laboratory using the Countercepts Gastrointestinal Panel. It is FDA cleared and has been verified and approved by the [facility] Molecular Diagnostics Laboratory for clinical use. This laboratory is CLIA-certified and [employer] (CAP)-accredited to perform high complexity testing. Performing Organization Address City/[facility] [place] [address] [facility] * SPIN/CONCENTRATION CHARGE (08/13/2018 10:13 AM CDT) Concentration charged Done [facility] Specimen Sputum - Expectorated Performing Organization Address City/[facility] [place] [address] [facility] * Sputum Culture + Gram Stain (08/13/2018 10:13 AM CDT) Result 4+ Normal respiratory danny [facility] Gram Stain Result 3+ WBCs [facility] Gram Stain Result 5-[address] [facility] Gram Stain Result No organisms seen [facility] Specimen Sputum - Expectorated Narrative Performed At [facility] Performing Organization Address [facility] Centercode Phone Number [facility] [address] [phone] [facility] [place] * AFB culture + smear (08/13/2018 10:13 AM CDT) Result MYCOBACTERIUM ABSCESSUS (A) [facility] Comment: [facility] * - subsp.abscessus Identification and susceptibility performed by: [facility], Dept. of Microbiology Research, Dr[facility], [address] [facility] [address], [place], [place] [address] AFB Smear No acid fast bacilli seen 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 The erm gene has a nonfunctional sequence and hence will be macrolide [facility] susceptible unless mutationally resistant. Antibiotic Method Susceptibility Organism Amikacin MANUAL METHOD 8 mcg/mL: Susceptible Mycobacterium abscessus Cefoxitin MANUAL METHOD 32 mcg/mL: Intermediate Mycobacterium abscessus Ciprofloxacin MANUAL METHOD 4 mcg/mL: Resistant Mycobacterium abscessus Clarithromycin MANUAL METHOD Susceptible Mycobacterium abscessus Doxycycline MANUAL METHOD >16 mcg/mL: Resistant Mycobacterium abscessus Imipenem MANUAL METHOD 8 mcg/mL: Intermediate Mycobacterium abscessus Linezolid MANUAL METHOD 8 mcg/mL: Susceptible Mycobacterium abscessus Minocycline MANUAL METHOD >8 mcg/mL: Resistant Mycobacterium abscessus Moxifloxacin MANUAL METHOD 4 mcg/mL: Resistant Mycobacterium abscessus Tigecycline MANUAL METHOD 0.5: No Interpretations Established Mycobacterium abscessus Trimethoprim + Sulfamethoxazole MANUAL METHOD 4/76 mcg/mL: Resistant Mycobacterium abscessus Comment: Testing performed by: [facility] Dept. of Microbiology Research Dr[facility] [address] [facility] [address] [place] [address] No functional erm gene (confers macrolide resistance) Performing Organization Address City/State/Zipcode Phone Number [address] [address] [facility] * Fungus culture + smear (08/13/2018 10:13 AM CDT) Result No fungus isolated in [address] [facility] Fungus Smear No fungi seen [facility] Specimen Sputum - Expectorated Performing Organization Address City/[facility] Centercode Phone Number [facility] [address] [place] [address] [facility] * Phosphorus (08/13/2018 4:54 AM CDT) Only the most recent of 5 results within the time period is included. Phosphorus 3.0Comment: Specimen slightly 2.3 - 4.7 mg/dL [facility] Specimen Blood Performing Organization Address [facility] Centercout Phone Number [facility] [address] [place] [address] [phone] [place] [address] * Hepatic function panel (08/13/2018 4:54 AM CDT) Only the most recent of 4 results within the time period is included. Protein, Total 6.2Comment: Specimen slightly 6.0 - 8.3 gm/dL [facility] Albumin 2.8 (L)Comment: Specimen 3.5 - 5.0 g/dL [facility] Total Bilirubin 0.3Comment: Specimen slightly 0.2 - 1.2 mg/dL [facility] Bilirubin, Direct 0.1Comment: Specimen slightly 0.1 - 0.5 mg/dL [facility] Alkaline Phosphatase 68 40 - 150 U/L [facility] AST 12Comment: Specimen slightly 5 - 34 U/L [facility] ALT <6 (L)Comment: Specimen 6 - 55 U/L [facility] slightly [facility] Specimen Blood Performing Organization Address [facility] Centercout Phone Number [place] [phone] [place] [address] [facility] * CMV PCR, quantitative (08/11/2018 1:31 PM CDT) CMV DNA Viral Load Negative or below the linear [facility] range of the assay (<375 [facility] copies/mL) Specimen Blood - Arm, Left Narrative Performed At Cytomegalovirus (CMV) infection can cause significant disease in [facility] immunosuppressed patients. However, it is common for CMV to manifest as a [facility] limited infection which is of [...] and its performance characteristics determined by the [facility] Pathology Department, Section of Molecular Pathology. It has not been cleared or approved by the U.S. Food and Drug Administration (FDA), since FDA approval is not required for clinical use of the test. Validation was done as required by The Clinical Laboratory Improvement Amendments of 1988. Performing Organization Address City/[facility]/[place] [address] [facility] * TSH/Free T4 If Indicated (08/11/2018 9:29 AM CDT) Only the most recent of 2 results within the time period is included. TSH 3.52 0.35 - 4.94 uIU/mL [facility] Specimen Blood - Arm, Left Performing Organization Address City/[facility]/Zipcode Phone Number [address] [address] [facility] * C-Reactive Protein (08/11/2018 9:29 AM CDT) Only the most recent of 3 results within the time period is included. CRP 3.20 (H) 0.00 - 0.50 mg/dL [facility] Specimen Blood - Arm, Left Performing Organization Address [facility] Centercode Phone Number [facility] [address] [place] [address] [facility] * Lipid panel (08/11/2018 9:29 AM CDT) Only the most recent of 2 results within the time period is included. Triglycerides 71 mg/dL [facility] Cholesterol 131 mg/dL [facility] HDL 55 mg/dL [facility] LDL Calculated 62 mg/dL [facility] Specimen Blood - Arm, Left Narrative Performed At Triglyceride Reference Range: [facility] Low Risk <150 [facility] [id number] High Risk 200-499 Very High Risk>=500 Cholesterol Reference Range: Low Risk <200 [id number] High Risk>240 HDL Cholesterol Reference Range: Low Risk >=60 High Risk <40 LDL Cholesterol Reference Range: Optimal<100 Near [id number] [id number] [id number] Very High >=190 Performing Organization Address [facility] Centercout Phone Number [facility] [address] [place] [address] [facility] * Clostridium difficile [facility] Toxin (08/11/2018 9:08 AM CDT) Only the most recent of 2 results within the time period is included. C. Difficle Toxin Negative Negative [facility] C. Difficile GDH Antigen NegativeComment: No indication Negative [facility] of Clostridium difficile [facility] infection and no colonization. Discontinue enteric isolation and therapy. Specimen Stool - Stool Narrative Performed At Testing performed by [employer].For GDH, published [facility] sensitivity of the assay is 98.7% compared to cytotoxicity testing.For Toxin [facility] AB, published sensitivity is 87.8% and specificity 99.4% compared to cytotoxicity testing. Verification of kit performance was done by the [facility] Microbiology Lab prior to clinical use. Performing Organization Address [facility] Centercout Phone Number [facility] [address] [place] [address] [facility] * STOOL PATH CHARGE (08/11/2018 9:08 AM CDT) Only the most recent of 3 results within the time period is included. Pathogen exam charged Done [facility] Specimen Stool - Per Rectum Performing Organization Address City/[facility] Centercout Phone Number [address] [address] [facility] * Stool culture + Shiga toxin (08/11/2018 9:08 AM CDT) Only the most recent of 3 results within the time period is included. Result No Salmonella, Shigella or [facility] Campylobacter isolated [facility] Specimen Stool - Per Rectum Performing Organization Address [facility] Centercout Phone Number [address] [phone] [facility] * Hemoglobin A1c (08/11/2018 6:37 AM CDT) Only the most recent of 2 results within the time period is included. Hemoglobin A1C 5.8 4.3 - 6.1 % [facility] Specimen Blood Performing Organization Address [facility] Phone Number [address] [address] [facility] * CT abdomen pelvis with IV contrast (08/10/2018 11:44 PM CDT) Narrative Performed At FINAL REPORT [employer] [facility] CT, ABDOMEN \\T\\ PELVIS, WITH IV CONTRAST [...] No pneumatosis or bowel obstruction. Signed: JR aNdia, Zhang SOTO Report Verified Date/Time:08/10/2018 23:52:19 Reading Location: [address] Reading Room Procedure Note Interface, External [...] Report Verified Date/Time: 08/10/2018 23:52:19 Reading Location: [address] Reading Room Performing Organization Address City/State/Zipcode Phone Number [facility] * Shiga Toxin Screen (08/10/2018 11:22 PM CDT) Only the most recent of 2 results within the time period is included. Shiga toxin 1 Not detected Not detected [facility] Shiga toxin 2 Not detected Not detected [facility] Specimen Stool - Per Rectum Performing Organization Address City/[facility]/Zipcode Phone Number [place] [phone] [place] [phone] MEDICAL [facility] * Urinalysis w/ Microscopic (08/10/2018 11:21 PM CDT) Color, UA Colorless [facility] Clarity, UA Clear [facility] Specific [place], UA 1.003 1.001 - 1.[address] [facility] pH, UA 5.0 5.0 - 8.[address] [facility] Protein, UA Negative Negative [facility] Glucose, UA Negative Negative [facility] Ketones, UA Negative Negative [facility] Bilirubin, UA Negative Negative [facility] Blood, UA Negative Negative [facility] Nitrite, UA Negative Negative [facility] Leukocytes, UA Negative Negative [facility] Urobilinogen, UA 0.2 0.2 - 1.0 mg/dL [facility] RBC, UA <1 /HPF [facility] WBC, UA 1 /HPF [facility] Bacteria, UA Rare [facility] Mucus Rare [facility] Squam Epithel, UA <1 /HPF [facility] Specimen Source Urine, Voided [facility] Specimen Urine - Urine, Voided Performing Organization Address City/[facility] Centercode Phone Number [address] * Lipase (08/10/2018 8:30 PM CDT) Lipase 67 8 - 78 U/L [facility] Specimen Blood - Arm, Left Performing Organization Address [facility] Centercout Phone Number [address] * Amylase (08/10/2018 8:30 PM CDT) Amylase 133 (H) 25 - 125 U/L [facility] Specimen Blood - Arm, Left Performing Organization Address [facility] Centercout Phone Number [address] * ECG 12 lead (08/10/2018 8:26 PM CDT) Narrative Performed At Ventricular Rate 98 BPM [facility] Atrial Rate 98 BPM P-R Interval 134 ms QRS Duration 74 ms Q-T Interval 366 ms QTC Calculation(Bazett) 467 ms P [place] 23 degrees R [place] 44 degrees T [place] 108 degrees Normal sinus rhythm Nonspecific ST [...] 366 ms QTC Calculation(Bazett) 467 ms P [place] 23 degrees R [place] 44 degrees T [place] 108 degrees Normal sinus rhythm Nonspecific ST and T wave abnormality Abnormal ECG When compared with ECG of 31-OCT-2016 15:56, Nonspecific T wave abnormality now evident in Inferior leads Confirmed by MD JUS, [facility] ([id number]) on 08/10/2018 9:49:29 PM Performing Organization Address City/State/Zipcode Phone Number GE MUSE * REPORT OF PROCEDURE - ENDOSCOPY URL (04/03/2018 4:19 PM CDT) Narrative Performed At * REPORT OF PROCEDURE - ENDOSCOPY URL (04/03/2018 4:10 PM CDT) Narrative Performed At * Tissue Exam (04/03/2018 2:56 PM CDT) Case Report Surgical Pathology [facility] Report [facility] Case: [id number] Authorizing Provider:Trever Das, Collected: 04/03/2018 1456 Ordering Location: [address] Received: 04/06/2018 0897 SERVICE Pathologist: Jarek Morrison MD Specimens: A) [...] r/o cmv DIAGNOSIS A. STOMACH, ANTRUM, GREATER [facility] CURVATURE, BIOPSY: [facility] - ANTRAL [place]UCOSA WITH CHRONIC [...] DYSPLASIA, MALIGNANCY Signing Pathologist Direct Phone Line: [phone] COMMENT The biopsies show diffuse [facility] chronic active colitis which [facility] correlates with the endoscopic impression [...] recommended. IDC: Dr. Perry concepcion. CPT Code(s) 24715b6 [facility] 11171o3 [facility] CLINICAL HISTORY Crohn's disease, rule out CMV [facility] SPECIMEN SOURCE A. Antrum greater curvature [facility] biopsy. B. Antrum lesser [facility] curvature biopsy. C. Incisura stomach biopsy. D. Stomach body greater curvature biopsy. E. Stomach body lesser curvature biopsy. F. Random right/ascending colon biopsy. G. Random left/descending colon biopsy. H. Sigmoid pseudopolyp. I. Rectum biopsy GROSS DESCRIPTION Specimen A: Received in [facility] formalin labeled "antrum", [facility] description "greater curvature" are two [...] DB/ew MICROSCOPIC DESCRIPTION A-E. Immunostains for H.pylori [facility] are examined. [facility] F-I. Section shows multiple fragments [...] pseudopolyp. SPECIAL STUDIES The following special studies [facility] were performed on this case [facility] and the interpretation is incorporated in the diagnostic report above: The immunohistochemistry test was developed and its performance characteristics determined by [facility] Pathology Laboratory. It has not been cleared [...] Specimen Tissue - Antrum Performing Organization Address [facility]/Zipcode Phone Number [address] * Calcium, Ionized (04/03/2018 4:15 AM CDT) Only the most recent of 2 results within the time period is included. Calcium, Ion 0.99 (L) 1.12 - 1.27 mmol/L [facility] pH, Blood 7.[address] [facility] Specimen Blood - Arm, Left Performing Organization Address [facility] Centercout Phone Number [address] * Ova and Parasite Examination (04/02/2018 11:55 AM CDT) O&P Direct Smear Comment: Test not performed at No ova or parasites seen [facility]. See scanned report. [facility] O&P Concentrate Smear No ova or parasites seen No ova or parasites seen [facility] O&P Trichrome Smear No ova or parasites seen No ova or parasites seen [facility] Specimen Stool - Stool Narrative Performed At Performing Organization Address [facility] Centercout Phone Number [address] * B-type Natriuretic Factor (BNP) (04/02/2018 5:12 AM CDT) BNP 155 (H) 0 - 100 pg/mL [facility] Specimen Blood - Arm, Left Performing Organization Address [facility]/Zipcode Phone Number [address] * Comprehensive metabolic panel (04/01/2018 10:10 PM CDT) Protein, Total 7.1 6.0 - 8.3 gm/dL [facility] Albumin 3.4 (L) 3.5 - 5.0 g/dL [facility] Alkaline Phosphatase 66 40 - 150 U/L [facility] Total Bilirubin 0.1 (L) 0.2 - 1.2 mg/dL [facility] Sodium 138 136 - 145 meq/L [facility] Potassium 3.6 3.5 - 5.1 meq/L [facility] Chloride 107 98 - 107 meq/L [facility] CO2 23 22 - 29 meq/L [facility] BUN 10 7 - 21 mg/dL [facility] Creatinine 0.66 0.57 - 1.25 mg/dL [facility] Glucose 103 70 - 105 mg/dL [facility] Calcium 8.2 (L) 8.4 - 10.2 mg/dL [facility] AST 9 5 - 34 U/L [facility] ALT 6 6 - 55 U/L [facility] EGFR 88Comment: ESTIMATED GFR IS mL/min/1.73 sq m [facility] NOT ACCURATE CREATININE [facility] CLEARANCE IN PREDICTING GLOMERULAR FILTRATION RATE. ESTIMATED GFR IS NOT APPLICABLE FOR DIALYSIS PATIENTS. Specimen Blood - Central Venous Line Performing Organization Address City/[facility]/[place] [address] [phone] [place] [address] * Occult blood, stool (04/01/2018 10:05 PM CDT) Occult blood Positive (A) Negative [facility] Specimen Stool - Stool Performing Organization Address [facility] [place] [address] [facility] * Fecal leukocytes (04/01/2018 10:05 PM CDT) Fecal Leukocytes 1+ Fecal leukocytes seen (A) No fecal leukocytes seen [facility] Specimen Stool - Stool Performing Organization Address City/State/Zipcode Phone Number [facility] [address] [place], [place] [id number] [facility] after 10/13/2017 Insurance Payer Benefit Subscriber ID Type Phone Address Plan / Group MEDICARE MEDICARE A xxxxxxxxxxx Medicare B MEDICAID MEDICAID xxxxxxxxx Medicaid OF [place] Advance Directives For more information, please contact: [facility] [address] [place] [address] Date Inactivated Comments Code Status Date Activated 08/15/2018 4:51 PM Full Code 08/11/2018 5:29 AM This code status was determined by: Patient 04/04/2018 9:49 PM Full Code 04/01/2018 7:36 PM This code status was determined by: Patient
[2018-10-14] MEDS ORDERED: TRAMADOL HCL 50 MG TAB PO ONE (17:15)
--- NOTE | 2018-10-14 18:13 | Diagnostic Imaging Report ---
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 I have reviewed the images and otherwise agree with findings in preliminary report. Signed by: Dr. Jackie Singh M.D. on 10/14/2018 7:53 PM ORIGINAL REPORT Exam: Noncontrast head CT History:72-year-old female, status post fall Comparison studies: None Technique: Axial images were obtained from the skull base to the vertex. Coronal and sagittal images reconstructed from the axial data. Dose modulation, iterative reconstruction, and/or weight based adjustment of the mA/kV was utilized to reduce the radiation dose to as low as reasonably achievable. Intravenous contrast: None Findings: Scalp/skull: Multiple small lucencies within the diploic spaces. No acute fracture. Extra-axial spaces: No mass. Prominent CSF collection midline in the posterior fossa may represent prominent cisterna magna versus arachnoid cyst. Brain sulci: Mildly prominent. Ventricles: Mild compensatory dilatation. No hydrocephalus. Parenchyma: Scattered hypodensities in the supratentorial white matter are small vessel ischemic changes. No masses, hemorrhage, acute cortical vascular insults. Sellar/suprasellar region: No abnormalities. Craniocervical junction: Patent foramen magnum. No Chiari one malformation. Incidental findings: Atherosclerotic calcifications in the carotid siphons . Impression: No acute abnormalities. Chronic findings: 1. Mild generalized volume loss. 2. Mild supratentorial white matter small vessel ischemic changes. 3. Small lucencies within the diploic spaces are nonspecific. 4. 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 Lenny Orr. Attending over read to follow. Signed by: Lenny Orr MD on 10/14/2018 6:10 PM
--- NOTE | 2018-10-14 18:24 | Diagnostic Imaging Report ---
ADDENDUM #1 I have reviewed the images and agree with findings in preliminary report. Signed by: Dr. Jackie Singh M.D. on 10/14/2018 7:57 PM ORIGINAL REPORT Exam: Noncontrast cervical spine CT History: Fall Comparison studies: None Technique: Axial images were obtained through the cervical region. Coronal and sagittal images reconstructed from the axial data. Dose modulation, iterative reconstruction, and/or weight based adjustment of the mA/kV was utilized to reduce the radiation dose to as low as reasonably achievable. Intravenous contrast: None Findings: Airway: Patent. Atlantoaxial articulation: Intact Alignment: Reversal of the cervical lordosis centered at C5-C6. Dextroconvex curvature of the cervical spine. Cervicomedullary junction: Patent foramen magnum. Partially visualized large posterior fossa arachnoid cyst versus cisterna magna. Soft tissues: No gross abnormalities. Vertebrae: No fractures, neoplasm or infection. Degenerative changes: Elongated styloid processes. C2-C3: Mild degenerative disc height loss with patent canal and foramina . C3-4: Patent spinal canal and foramina . C4-5: Large anterior disc osteophyte and mild degenerative disc height loss with small disc bulge but no significant canal stenosis. . C5-6: Moderate degenerative disc height loss without canal or foraminal stenosis. . C6-7: Mild degenerative disc height loss with prominent right-sided disc osteophyte and no significant canal or foraminal stenosis. . C7-T1: Patent spinal canal and foramina . IMPRESSION: 1. No acute fracture. 2. Evaluation of the ligamentous structures is limited on CT. If there is strong clinical concern for ligamentous injury then MRI should be considered. Chronic findings: 1. Multilevel degenerative changes of the cervical spine without significant canal or foraminal stenosis. 2. Elongated styloid processes can be seen in the clinical diagnosis of [place]'S syndrome. This is a preliminary report was provided by the neuroradiology fellow, Dr. Lenny Orr. Attending over read to follow. Signed by: Lenny Orr MD on 10/14/2018 6:21 PM
--- NOTE | 2018-10-14 18:26 | Diagnostic Imaging Report ---
CT Bony Pelvis Without Contrast, With Multiplanar Reconstruction. CPT CODE: 44126,44915. INDICATIONS: Lost balance and fell backwards TECHNIQUE: Contiguous 2.5 mm thickness axial images were obtained in helical fashion through the bony pelvis. From these, coronal and sagittal reconstructions were generated. RADIATION DOSE: Total DLP: 285.5 mGy*cm Estimated effective dose: (DLP x 0.015 x size factor) mSv CTDIvol has been reviewed. It is below the limits set by the Radiation Protocol Committee (RPC). Dose reduction techniques used: Automated exposure control, adjustment of the mAs and/or kVp according to patient size, standardized low-dose protocol, and/or iterative reconstruction technique. COMPARISON: CT abdomen/pelvis 09/17/2018. Findings: Bowel: Large amount of stool in the cecum and proximal ascending colon. There is gaseous distention of the mid sigmoid colon. Small bowel loops are normal in diameter. The rectum is collapsed. Uterus: Atrophic. No adnexal mass. Bladder: Under distended but otherwise normal. Peritoneum/retroperitoneum: Small amount of fluid. No free air. Vasculature: Visualized portions of the aorta and iliac arteries are normal in diameter with scattered calcifications throughout. Bones: Stable anterior cortical thickening of S4 suggestive of healing/healed fracture. There is new mild ventral angulation of the S5 segment suggestive of nondisplaced fracture. There is no diastases of the pubic symphysis or sacroiliac joints. The hips are intact and in anatomic alignment. There are no pelvic fractures. Soft tissues: Surgical clips in the anterior abdominal wall are stable. No evidence of soft tissue contusion or intramuscular hematoma. IMPRESSION: 1. Suspected nondisplaced fracture of S5 with small amount of presacral edema. 2. Healing/healed fracture of S4 is similar in appearance. 3. Large amount of stool in the right colon. No evidence of bowel obstruction. Signed by: Dr. Olivier Paulson MD on 10/14/2018 6:22 PM
--- NOTE | 2018-10-14 18:31 | Diagnostic Imaging Report ---
Wrist Complete Bilateral CPT Code: 07767 x 2 Indication: Fall Technique: Three views of the wrists obtained Comparison: None Findings: Right wrist: Distal radius and ulna are intact. There are mild degenerative changes of the radial ulnar and radiocarpal joints. Carpal bones are intact and normally aligned. Visualized bones of the digits are intact. There is mild radial subluxation of the base of the first metacarpal relative to the scaphoid. Left wrist: Distal radius and ulna are intact. There are mild degenerative changes of the radial ulnar joint. The carpal bones are intact and normally aligned. Visualized bones of the digits are intact. There is mild subluxation of the base of the first metacarpal relative to the scaphoid. IMPRESSION: 1. No acute fracture. 2. Bilateral subluxations of the first metacarpals likely due to ligamentous laxity. 3. Degenerative changes as described above. Signed by: Dr. Olivier Paulson MD on 10/14/2018 6:27 PM
--- NOTE | 2018-10-14 18:32 | Diagnostic Imaging Report ---
ADDENDUM #1 I have reviewed the images and agree with findings in preliminary report. Signed by: Dr. Jackie Singh M.D. on 10/14/2018 8:02 PM ORIGINAL REPORT Exam: Lumbar spine CT without contrast History: Status post fall Comparison studies: None Technique: Axial images were obtained from T12-S1. Coronal and sagittal images reconstructed from the axial data. Dose modulation, iterative reconstruction, and/or weight based adjustment of the mA/kV was utilized to reduce the radiation dose to as low as reasonably achievable. Intravenous contrast: None Findings: Number of non-rib bearing vertebral bodies: 5 Alignment: Straightening of the lumbar lordosis. Mild dextroconvex curvature of the lumbar spine, apex at L2.. Soft tissues: No abnormalities. Paraspinal muscles: Unremarkable. Vertebrae: No fractures, infection or neoplasm. Degenerative changes: Dilated multilevel degenerative disc height loss, greatest along the concavity of the curvature on the left at L1-2 through L3-4 and on the right at L4-5 and L5-S1. Prominent left-sided disc osteophyte on the left at L2-3 and L3-4. Moderate right-sided facet arthropathy at L5-S1, milder on the left and at L4-5 bilaterally. No significant canal or foraminal stenosis. Sacroiliac joints: No degenerative changes. IMPRESSION: No acute injury. Chronic findings: Multilevel degenerative changes of the lumbar spine without significant canal or foraminal stenosis. This is a preliminary report was provided by the neuroradiology fellow, Dr. Lenny Orr. Attending over read to follow. Signed by: Lenny Orr MD on 10/14/2018 6:28 PM
--- NOTE | 2018-10-14 19:46 | Diagnostic Imaging Report ---
EXAMINATION: CHEST SINGLE (PORTABLE) COMPARISON: Chest x-ray 09/19/2018 INDICATION: Fall DISCUSSION: Frontal view of the chest obtained at 1914 hours. HEART AND MEDIASTINUM: Stable mild cardiomegaly. Pacemaker wires terminate in the right atrium and right ventricle. LUNGS: The lungs are well-inflated suggestive of COPD. No evidence of mass or infiltrate. No interstitial thickening or vascular congestion PLEURA: No pleural effusion or pneumothorax. BONES AND SOFT TISSUES: No focal osseous lesion. There are mild degenerative changes of the left shoulder. Surgical clips in the right axilla and chest wall are stable. IMPRESSION: Stable pulmonary hyperinflation. No acute cardiopulmonary process. Signed by: Dr. Olivier Paulson MD on 10/14/2018 7:42 PM
== END 2018-10-14 20:30 | disposition home or self-care (01) ==
LOC: ER 14:56
DX: S00.83XA Contusion of other part of head, initial encounter (principal); S60.212A Contusion of left wrist, initial encounter; S60.211A Contusion of right wrist, initial encounter; S30.0XXA Contusion of lower back and pelvis, initial encounter; S16.1XXA Strain of muscle, fascia and tendon at neck level, initial encounter; W01.0XXA Fall on same level from slipping, tripping and stumbling without subsequent striking against object, initial encounter; Y92.488 Other paved roadways as the place of occurrence of the external cause; I10 Essential (primary) hypertension; E11.9 Type 2 diabetes mellitus without complications; K50.90 Crohn's disease, unspecified, without complications; Z85.3 Personal history of malignant neoplasm of breast
CPT/HCPCS: 70450; 71045; 72125; 72131; 72192; 99283

== ENCOUNTER 2018-11-12 11:26 | Emergency (ER) | payer MEDICARE, OTHER ==
[~2018-11-12] VITALS: Ht 149.9 cm; Wt 49.9 kg
--- OUTSIDE RECORDS SUMMARY | 2018-11-12 11:29 | XMS REPORT | Clinical Summary ---
Author Author [facility] Address Unknown Phone Unavailable Care Team Providers Care Import/Export Administrator Name Role Phone Anders Brady Betty PCP Sharpless Unavailable Allergies Comments Active Allergy Reactions Severity Noted Date Naproxen Sodium 12/15/2015 Acetaminophen-Calcium 12/15/2015 Carbonat Diclofenac-Misoprostol 12/15/2015 Aspirin 12/15/2015 Ciprofloxacin 10/31/2016 Clarithromycin 10/31/2016 Coconut 04/01/2018 Diphenhydramine 10/31/2016 Erythromycin 12/15/2015 Flurbiprofen 04/01/2018 Hydrocodone-Ibuprofen 12/15/2015 Ibuprofen 04/01/2018 Lisinopril Itching, Low 08/11/2018 Anxiety Acetaminophen-Pamabrom 10/31/2016 Morphine Sulfate 10/31/2016 Nsaids (Non-Steroidal 10/31/2016 Anti-Inflammatory Drug) Onion 04/01/2018 [place] 04/01/2018 [place] (Prunus Persica) 04/01/2018 Pear 04/01/2018 Penicillins 10/31/2016 [...] 08/27/2018 Discontinued iron polysacch Take 1 0 [id number] 150-25-1 capsule by mg-mcg-mg Cap mouth 2 [...] Dru Hanson MD 04/03/2018 Anesthesia Gastroenterology Event [facility], Trever Horvath MD UPPER ENDOSCOPY,BIOPSY 04/03/2018 Surgery [...] MD 04/01/2018 Orders Only Internal Medicine after 11/11/2017 Social History Date Tobacco Use Types Packs/Day [...] ms QTC Calculatio n(Bazett) 467 ms P [place] 23 degrees R [place] 44 degrees T [place] 108 degrees Normal sinus rhythm Nonspecifi c [...] TOXIN Routine 04/01/2018 10:04 PM CDT after 11/11/2017 Results * POC-Glucose meter (08/15/2018 12:46 PM CDT) Only the most recent of 25 results within the time period is included. POC-Glucose Meter 143 (H)Comment: TESTED AT 70 - 110 mg/dL [facility] [address] [facility] [address] Specimen Blood Performing Organization Address City/State/Zipcode Phone Number [address] [address] [facility] * Manual Differential (08/15/2018 8:25 AM CDT) % Neutros 43 % [facility] % Lymphs 21 % [facility] % Monos 3 % [facility] % Eos 4 % [facility] % Baso 1 % [facility] % Bands 29 (H) 0 - 10 % [facility] # Neutros 3.14 1.56 - 6.13 K/ul [facility] # Lymphs 1.53 1.18 - 3.74 K/ul [facility] # Monos 0.22 (L) 0.24 - 0.36 K/uL [facility] # Eos 0.29 0.04 - 0.36 K/uL [facility] # Baso 0.07 0.01 - 0.08 K/uL [facility] # Bands 2.12 (H) 0.00 - 0.80 K/uL [facility] Total Counted 100 [facility] WBC Morphology Normal [facility] Giant Platelet Present [facility] Large Platelet Present [facility] Hypochromia 2+ moderate [facility] Anisocytosis 2+ moderate [facility] Microcytes 1+ few [facility] Macrocytes 2+ moderate [facility] Poikilocytes 1+ few [facility] Ovalocytes 1+ few [facility] Tear Drop Cells 1+ few [facility] Acanthocytes 1+ few [facility] Artifact Present [facility] Platelet Conc Adequate [facility] Specimen Blood - Arm, Left Narrative Performed At Received comment: [facility] User comments: [facility] Slide comments: Performing Organization Address City/State/Zipcode Phone Number [facility] [address] [place] [address] MEDICAL CENTER * CBC with platelet count + automated diff (08/15/2018 8:25 AM CDT) Only the most recent of 8 results within the time period is included. WBC 7.3 3.5 - 10.5 K/L [facility] RBC 3.44 (L) 3.93 - 5.22 M/L [facility] Hemoglobin 8.6 (L) 11.2 - 15.7 GM/DL [facility] Hematocrit 28.5 (L) 34.1 - 44.9 % [facility] MCV 82.8 79.4 - 94.8 fL [facility] MCH 25.0 (L) 25.6 - 32.2 pg [facility] MCHC 30.2 (L) 32.2 - 35.5 GM/DL [facility] RDW 16.3 (H) 11.7 - 14.4 % [facility] Platelets 451 (H) 150 - 450 K/CU MM [facility] MPV 9.0 (L) 9.4 - 12.3 fL [facility] nRBC 0 0 - 0 /100 WBC [facility] Specimen Blood - Arm, Left Performing Organization Address City/State/Zipcode Phone Number [facility] [address] [place] [address] [facility] * Aspergillus antibodies (08/15/2018 5:46 [...] At Performing Lab [facility] [facility] [facility] [address] [place] [phone] Jay Jay Phelps MD Performing Organization Address [facility] Cent[facility]ode Phone Number [facility] [address] [place] [phone] * Aspergillus galactomannan antigen (08/15/2018 5:46 AM CDT) Aspergillus Index Value <0.50 [facility] Aspergillus Antigen NOT DETECTED [facility] Comment: INCORPORATED REFERENCE RANGE: <0.50, NOT DETECTED A negative result does not exclude invasive aspergillosis. Follow-up testing may be indicated for high-risk patients. Specimen Blood - Arm, Left Narrative Performed At Performing Lab [email or web address] *[employer] [facility] [facility] [employer] [address] [place] [phone] Jay Jay Phelps MD Performing Organization Address [facility] Phone Number [facility], [address] [place], [place] [id number] * Magnesium (08/15/2018 5:46 AM CDT) Only the most recent of 7 results within the time period is included. Magnesium 2.0 1.6 - 2.6 mg/dL [facility] Specimen Blood - Arm, Left Performing Organization Address [facility] Centerconv Phone Number [facility] [address] [place] [phone] * Immunoglobulin E (IgE) (08/15/2018 5:46 AM CDT) Immunoglobulin E 30 114 OR LESS kU/L [facility] Specimen Blood - Arm, Left Narrative Performed At Performing Lab [facility] [email or web address] [address] [address] Aman Cody MD, PhD, GIOVANNI Performing Organization Address City/[facility] Centercode Phone Number [facility] [employer], [address] [place] [address] * Basic Metabolic Panel (08/15/2018 5:46 AM CDT) Only the most recent of 8 results within the time period is included. Sodium 137 136 - 145 meq/L [facility] Potassium 4.1 3.5 - 5.1 meq/L [facility] Chloride 110 (H) 98 - 107 meq/L [facility] CO2 20 (L) 22 - 29 meq/L [facility] BUN 3 (L) 7 - 21 mg/dL [facility] Creatinine 0.66 0.57 - 1.25 mg/dL [facility] Glucose 114 (H) 70 - 105 mg/dL [facility] Calcium 8.3 (L) 8.4 - 10.2 mg/dL [facility] EGFR 88Comment: ESTIMATED GFR IS mL/min/1.73 sq m [facility] NOT ACCURATE CREATININE [facility] CLEARANCE IN PREDICTING GLOMERULAR FILTRATION RATE. ESTIMATED GFR IS NOT APPLICABLE FOR DIALYSIS PATIENTS. Specimen Blood - Arm, Left Performing Organization Address City/State/Zipcode Phone Number [facility] [address] [place] [address] [facility] * CT chest with high resolution/ild (08/14/2018 8:27 PM CDT) Narrative Performed At FINAL REPORT [facility]-Key [facility] CLINICAL INDICATION: Sputum cultures positive for Aspergillus [...] Report Verified Date/Time:08/14/2018 20:51:25 Reading Location: [address] Reading Room Procedure Note Interface, External [...] Verified Date/Time: 08/14/2018 20:51:25 Reading Location: [address] Reading Room Performing Organization Address City/State/Zipcode Phone Number [facility] * GI Pathogen Profile by PCR -ID Only (08/14/2018 11:41 AM CDT) Only the most recent of 2 results within the time period is included. CAMPYLOBACTER (PCR) Not detected Not detected [facility] PLESIOMONAS SHIGELLOIDES Not detected Not detected [facility] (PCR) [facility] SALMONELLA (PCR) Not detected Not detected [facility] YERSINIA ENTEROCOLITICA Not detected Not detected [facility] (PCR) [facility] VIBRIO CHOLERAE (PCR) Not detected Not detected [facility] ENTEROAGGREGATIVE E. COLI Not detected Not detected [facility] (EAEC) BY PCR [facility] ENTEROPATHOGENIC E. COLI Not detected Not detected [facility] (EPEC) BY PCR [facility] ENTEROTOXIGENIC E. COLI Not detected Not detected [facility] (ETEC) LT/ST BY PCR [facility] SHIGA-LIKE Not detected Not detected [facility] TOXIN-PRODUCING E. COLI [facility] (STEC) STX1/STX2 E. COLI O157 (PCR) Not detected [facility] SHIGELLA/ENTEROINVASIVE Not detected Not detected [facility] E. COLI (EIEC) BY PCR [facility] CRYPTOSPORIDIUM (PCR) Not detected Not detected [facility] CYCLOSPORA CAYETANENSIS Not detected Not detected [facility] (PCR) [facility] ENTAMOEBA HISTOLYTICA Not detected Not detected [facility] (PCR) [facility] GIARDIA LAMBLIA (PCR) Not detected Not detected [facility] ADENOVIRUS F 40/41 (PCR) Not detected Not detected [facility] ASTROVIRUS (PCR) Not detected Not detected [facility] NOROVIRUS GI/GII (PCR) Not detected Not detected [facility] ROTAVIRUS A (PCR) Not detected Not detected [facility] SAPOVIRUS (I, II, IV, V) Not detected Not detected [facility] BY PCR [facility] VIBRIO (PARAHAEMOLYTICUS, Not detected Not detected [facility] VULNIFICUS) [facility] Specimen Stool - Stool Narrative Performed At Other viruses, parasites and bacteria not targeted by this PCR panel cannot be [facility] excluded; therefore clinical correlation and follow up of serology, culture [facility] results, and other molecular studies is required. The results are not intended to be used as the sole means for clinical diagnosis or patient management decisions. This sample was tested at the [facility] Molecular Diagnostics Laboratory using the [place] Gastrointestinal Panel. It is FDA cleared and has been verified and approved by the [facility] Molecular Diagnostics Laboratory for clinical use. This laboratory is CLIA-certified and [employer] (CAP)-accredited to perform high complexity testing. Performing Organization Address City/[facility] [place] [address] [facility] * SPIN/CONCENTRATION CHARGE (08/13/2018 10:13 AM CDT) Concentration charged Done [facility] Specimen Sputum - Expectorated Performing Organization Address City/[facility] [place] [address] [facility] * Sputum Culture + Gram Stain (08/13/2018 10:13 AM CDT) Result 4+ Normal respiratory danny [facility] Gram Stain Result 3+ WBCs [facility] Gram Stain Result 5-10 epithelial cells [facility] Gram Stain Result No organisms seen [facility] Specimen Sputum - Expectorated Narrative Performed At [facility] Performing Organization Address [facility] Centercode Phone Number [facility] [phone] [facility] * AFB culture + smear (08/13/2018 10:13 AM CDT) Result MYCOBACTERIUM ABSCESSUS (A) [facility] Comment: [facility] * - subsp.abscessus Identification and susceptibility performed by: [facility], Dept. of Microbiology Research, 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 The erm gene has a nonfunctional sequence and hence will be macrolide [facility] susceptible unless mutationally resistant. Antibiotic Method Susceptibility [...] Resistant Mycobacterium abscessus Comment: Testing performed by: [facility] Dept. of Microbiology Research Dr[facility] [address] [facility] [address] [place] [address] No functional erm gene (confers macrolide resistance) Performing Organization Address City/State/Zipcode Phone Number [address] [address] [facility] * Fungus culture + smear (08/13/2018 10:13 AM CDT) Result No fungus isolated in 28 days [facility] Fungus Smear No fungi seen [facility] Specimen Sputum - Expectorated Performing Organization Address City/[facility] Centercode Phone Number [facility] [address] [place] [address] [facility] * Phosphorus (08/13/2018 4:54 AM CDT) Only the most recent of 5 results within the time period is included. Phosphorus 3.0Comment: Specimen slightly 2.3 - 4.7 mg/dL [facility] Specimen Blood Performing Organization Address [facility] Centerconv Phone Number [facility] [address] [place] [address] [phone] [place] [address] * Hepatic function panel (08/13/2018 4:54 AM CDT) Only the most recent of 4 results within the time period is included. Protein, Total 6.2Comment: Specimen slightly 6.0 - 8.3 gm/dL [facility] Albumin 2.8 (L)Comment: Specimen 3.5 - 5.0 g/dL [facility] slightly [facility]Henry [facility] Total Bilirubin 0.3Comment: Specimen slightly 0.2 - 1.2 mg/dL [facility] Bilirubin, Direct 0.1Comment: Specimen slightly 0.1 - 0.5 mg/dL [facility] Alkaline Phosphatase 68 40 - 150 U/L [facility] AST 12Comment: Specimen slightly 5 - 34 U/L [facility] ALT <6 (L)Comment: Specimen 6 - 55 U/L [facility] slightly hemolyHenry [facility] Specimen Blood Performing Organization Address [facility] Centerconv Phone Number [place] [phone] [place] [address] [facility] * CMV PCR, quantitative (08/11/2018 1:31 PM CDT) CMV DNA Viral Load Negative or below the linear [facility] range of the assay (<375 [facility] copies/mL) Specimen Blood - Arm, Left Narrative Performed At Cytomegalovirus (CMV) infection can cause significant disease in [facility] immunosuppressed patients. However, it is common for CMV to manifest as a [facility] limited infection which is of no clinical [...] and its performance characteristics determined by the [facility] Pathology Department, Section of Molecular Pathology. It has not been cleared or approved by the U.S. Food and Drug Administration (FDA), since FDA approval is not required for clinical use of the test. Validation was done as required by The Clinical Laboratory Improvement Amendments of 1988. Performing Organization Address City/[facility]/[place] [address] [facility] * TSH/Free T4 If Indicated (08/11/2018 9:29 AM CDT) Only the most recent of 2 results within the time period is included. TSH 3.52 0.35 - 4.94 uIU/mL [facility] Specimen Blood - Arm, Left Performing Organization Address City/[facility]/Zipcode Phone Number [address] [address] [facility] * C-Reactive Protein (08/11/2018 9:29 AM CDT) Only the most recent of 3 results within the time period is included. CRP 3.20 (H) 0.00 - 0.50 mg/dL [facility] Specimen Blood - Arm, Left Performing Organization Address [facility] Centercode Phone Number [facility] [address] [place] [address] [facility] * Lipid panel (08/11/2018 9:29 AM CDT) Only the most recent of 2 results within the time period is included. Triglycerides 71 mg/dL [facility] Cholesterol 131 mg/dL [facility] HDL 55 mg/dL [facility] LDL Calculated 62 mg/dL [facility] Specimen Blood - Arm, Left Narrative Performed At Triglyceride Reference Range: [facility] Low Risk <150 [facility] [id number] High Risk 200-499 Very High Risk>=500 Cholesterol Reference Range: Low Risk <200 [id number] High Risk>240 HDL Cholesterol Reference Range: Low Risk >=60 High Risk <40 LDL Cholesterol Reference Range: Optimal<100 Near [id number] [id number] Lnwh532-325 Very High >=[address] [facility] Centerconv Phone Number [facility] [address] [place] [address] [facility] * Clostridium difficile GDH Toxin (08/11/2018 9:08 AM CDT) Only the most recent of 2 results within the time period is included. C. Difficle Toxin Negative Negative [facility] C. Difficile GDH Antigen NegativeComment: No indication Negative [facility] of Clostridium difficile [facility] infection and no colonization. Discontinue enteric isolation and therapy. Specimen Stool - Stool Narrative Performed At Testing performed by Care Thread Rapid Cassette Assay.For GDH, published [facility] sensitivity of the assay is 98.7% compared to cytotoxicity testing.For Toxin [facility] AB, published sensitivity is 87.8% and specificity 99.4% compared to cytotoxicity testing. Verification of kit performance was done by the [facility] Microbiology Lab prior to clinical use. Performing Organization Address [facility] Centerconv Phone Number [facility] [address] [place] [address] [facility] * STOOL PATH CHARGE (08/11/2018 9:08 AM CDT) Only the most recent of 3 results within the time period is included. Pathogen exam charged Done [facility] Specimen Stool - Per Rectum Performing Organization Address City/[facility] Centerconv Phone Number [address] [address] [facility] * Stool culture + Shiga toxin (08/11/2018 9:08 AM CDT) Only the most recent of 3 results within the time period is included. Result No Salmonella, Shigella or [facility] Campylobacter isolated [facility] Specimen Stool - Per Rectum Performing Organization Address [facility] Centerconv Phone Number [address] [address] [facility] * Hemoglobin A1c (08/11/2018 6:37 AM CDT) Only the most recent of 2 results within the time period is included. Hemoglobin A1C 5.8 4.3 - 6.1 % [facility] Specimen Blood Performing Organization Address [facility] Phone Number [address] [address] [facility] * CT abdomen pelvis with IV contrast (08/10/2018 11:44 PM CDT) Narrative Performed At FINAL REPORT V-Key [facility] CT, ABDOMEN \\T\\ PELVIS, WITH IV CONTRAST [...] Signed: JR Nadia, Zhang SOTO Report Verified Date/Time:08/10/2018 23:52:19 Reading Location: [address] Reading Room Procedure Note Interface, External [...] Verified Date/Time: 08/10/2018 23:52:19 Reading Location: [address] Reading Room Performing Organization Address City/State/Zipcode Phone Number [facility] * Shiga Toxin Screen (08/10/2018 11:22 PM CDT) Only the most recent of 2 results within the time period is included. Shiga toxin 1 Not detected Not detected [facility] Shiga toxin 2 Not detected Not detected [facility] Specimen Stool - Per Rectum Performing Organization Address City/[facility]/Zipcode Phone Number [place] [phone] [place] [phone] MEDICAL CENTER * Urinalysis w/ Microscopic (08/10/2018 11:21 PM CDT) Color, UA Colorless [facility] Clarity, UA Clear [facility] Specific [place], UA 1.003 1.001 - 1.035 [facility] pH, UA 5.0 5.0 - 8.0 [facility] Protein, UA Negative Negative [facility] Glucose, UA Negative Negative [facility] Ketones, UA Negative Negative [facility] Bilirubin, UA Negative Negative [facility] Blood, UA Negative Negative [facility] Nitrite, UA Negative Negative [facility] Leukocytes, UA Negative Negative [facility] Urobilinogen, UA 0.2 0.2 - 1.0 mg/dL [facility] RBC, UA <1 /HPF [facility] WBC, UA 1 /HPF [facility] Bacteria, UA Rare [facility] Mucus Rare [facility] Squam Epithel, UA <1 /HPF [facility] Specimen Source Urine, Voided [facility] Specimen Urine - Urine, Voided Performing Organization Address City/[facility] Centercode Phone Number [address] * Lipase (08/10/2018 8:30 PM CDT) Lipase 67 8 - 78 U/L [facility] Specimen Blood - Arm, Left Performing Organization Address [facility] Phone Number [address] * Amylase (08/10/2018 8:30 PM CDT) Amylase 133 (H) 25 - 125 U/L [facility] Specimen Blood - Arm, Left Performing Organization Address [facility] Phone Number [address] * ECG 12 lead (08/10/2018 8:26 PM CDT) Narrative Performed At Ventricular Rate 98 BPM [facility] Atrial Rate 98 BPM P-R Interval 134 ms QRS Duration 74 ms Q-T Interval 366 ms QTC Calculation(Bazett) 467 ms P [place] 23 degrees R [place] 44 degrees T [place] 108 degrees Normal sinus rhythm Nonspecific ST [...] 366 ms QTC Calculation(Bazett) 467 ms P [place] 23 degrees R [place] 44 degrees T [place] 108 degrees Normal sinus rhythm Nonspecific ST and T wave abnormality Abnormal ECG When compared with ECG of 31-OCT-2016 15:56, Nonspecific T wave abnormality now evident in Inferior leads Confirmed by MD JUS, [facility] ([id number]) on 08/10/2018 9:49:29 PM Performing Organization Address City/State/Zipcode Phone Number [facility] * REPORT OF PROCEDURE - ENDOSCOPY URL (04/03/2018 4:19 PM CDT) Narrative Performed At * REPORT OF PROCEDURE - ENDOSCOPY URL (04/03/2018 4:10 PM CDT) Narrative Performed At * Tissue Exam (04/03/2018 2:56 PM CDT) Case Report Surgical Pathology [facility] Report [facility] Case: [id number] Authorizing Provider:Trever Das, Collected: 04/03/2018 1456 Ordering Location: [address] [address] Received: 04/06/2018 0833 SERVICE Pathologist: Jarek Morrison MD Specimens: A) [...] r/o cmv DIAGNOSIS A. STOMACH, ANTRUM, GREATER [facility] CURVATURE, BIOPSY: [facility] - ANTRAL MUCOSA WITH CHRONIC INACTIVE GASTRITIS [...] DYSPLASIA, MALIGNANCY Signing Pathologist Direct Phone Line: [phone] COMMENT The biopsies show diffuse [facility] chronic active colitis which [facility] correlates with the endoscopic impression of inflammation [...] recommended. IDC: Dr. Perry concepcion. CPT Code(s) 63178x4 [facility] [id number] [facility] CLINICAL HISTORY Crohn's disease, rule out CMV [facility] SPECIMEN SOURCE A. Antrum greater curvature [facility] biopsy. B. Antrum lesser [facility] curvature biopsy. C. Incisura stomach biopsy. D. Stomach body greater curvature biopsy. E. Stomach body lesser curvature biopsy. F. Random right/ascending colon biopsy. G. Random left/descending colon biopsy. H. Sigmoid pseudopolyp. I. Rectum biopsy GROSS DESCRIPTION Specimen A: Received in [facility] formalin labeled "antrum", [facility] description "greater curvature" are two fragments measuring [...] DB/ew MICROSCOPIC DESCRIPTION A-E. Immunostains for H.pylori [facility] are examined. [facility] F-I. Section shows multiple fragments of colonic [...] pseudopolyp. SPECIAL STUDIES The following special studies [facility] were performed on this case [facility] and the interpretation is incorporated in the diagnostic report above: The immunohistochemistry test was developed and its performance characteristics determined by [facility], Pathology Laboratory. It has not been [...] Specimen Tissue - Antrum Performing Organization Address [facility]/Zipcode Phone Number [address] * Calcium, Ionized (04/03/2018 4:15 AM CDT) Only the most recent of 2 results within the time period is included. Calcium, Ion 0.99 (L) 1.12 - 1.27 mmol/L [facility] pH, Blood 7.45 [facility] Specimen Blood - Arm, Left Performing Organization Address [facility] Phone Number [address] * Ova and Parasite Examination (04/02/2018 11:55 AM CDT) O&P Direct Smear Comment: Test not performed at No ova or parasites seen [facility]. See scanned report. [facility] O&P Concentrate Smear No ova or parasites seen No ova or parasites seen [facility] O&P Trichrome Smear No ova or parasites seen No ova or parasites seen [facility] Specimen Stool - Stool Narrative Performed At Performing Organization Address [facility] Phone Number [address] * B-type Natriuretic Factor (BNP) (04/02/2018 5:12 AM CDT) BNP 155 (H) 0 - 100 pg/mL [facility] Specimen Blood - Arm, Left Performing Organization Address [facility]/Zipcode Phone Number [address] * Comprehensive metabolic panel (04/01/2018 10:10 PM CDT) Protein, Total 7.1 6.0 - 8.3 gm/dL [facility] Albumin 3.4 (L) 3.5 - 5.0 g/dL [facility] Alkaline Phosphatase 66 40 - 150 U/L [facility] Total Bilirubin 0.1 (L) 0.2 - 1.2 mg/dL [facility] Sodium 138 136 - 145 meq/L [facility] Potassium 3.6 3.5 - 5.1 meq/L [facility] Chloride 107 98 - 107 meq/L [facility] CO2 23 22 - 29 meq/L [facility] BUN 10 7 - 21 mg/dL [facility] Creatinine 0.66 0.57 - 1.25 mg/dL [facility] Glucose 103 70 - 105 mg/dL [facility] Calcium 8.2 (L) 8.4 - 10.2 mg/dL [facility] AST 9 5 - 34 U/L [facility] ALT 6 6 - 55 U/L [facility] EGFR 88Comment: ESTIMATED GFR IS mL/min/1.73 sq m [facility] NOT ACCURATE CREATININE [facility] CLEARANCE IN PREDICTING GLOMERULAR FILTRATION RATE. ESTIMATED GFR IS NOT APPLICABLE FOR DIALYSIS PATIENTS. Specimen Blood - Central Venous Line Performing Organization Address City/[facility]/[place] [address] [phone] [place] [address] * Occult blood, stool (04/01/2018 10:05 PM CDT) Occult blood Positive (A) Negative [facility] Specimen Stool - Stool Performing Organization Address [facility] [place] [address] [facility] * Fecal leukocytes (04/01/2018 10:05 PM CDT) Fecal Leukocytes 1+ Fecal leukocytes seen (A) No fecal leukocytes seen [facility] Specimen Stool - Stool Performing Organization Address City/State/Zipcode Phone Number [facility] [address] [place], [place] [id number] [facility] after 11/11/2017 Insurance Payer Benefit Subscriber ID Type Phone Address Plan / Group MEDICARE MEDICARE A xxxxxxxxxxx Medicare B MEDICAID MEDICAID xxxxxxxxx Medicaid OF [place] Advance Directives For more information, please contact: [facility] [address] [place] [address] Date Inactivated Comments Code Status Date Activated 08/15/2018 4:51 PM Full Code 08/11/2018 5:29 AM This code status was determined by: Patient 04/04/2018 9:49 PM Full Code 04/01/2018 7:36 PM This code status was determined by: Patient
--- NOTE | 2018-11-12 11:47 | NUR ---
AQUATIC LABORER LINE USED FOR TRIAGE (FAM, #[id number])
[2018-11-12] MEDS ORDERED: DEXAMETHASONE 0.5 MG/5 ML ELIX PO SCH (12:00)
[2018-11-12] MEDS ORDERED: DEXAMETHASONE 4 MG TAB PO NR (12:15)
--- NOTE | 2018-11-12 13:21 | Diagnostic Imaging Report ---
EXAMINATION: CHEST 2 VIEWS COMPARISON: Chest x-ray 10/14/2018. INDICATION: Cough. DISCUSSION: LINES: Left-sided pacemaker wires terminate in the right atrium and right ventricle. LUNGS: The lungs are hyperinflated. No evidence of pneumonia or pulmonary edema. HEART AND MEDIASTINUM: Stable mild cardiomegaly. Tortuous thoracic aorta. PLEURA: No pleural effusion or pneumothorax. BONES AND SOFT TISSUES: No acute osseous abnormality. Surgical clips are present in the right axilla/chest wall. Degenerative changes of bilateral shoulders. IMPRESSION: Hyperinflated lungs without acute radiographic abnormality. Signed by: Dr. Diana Chopra MD on 11/12/2018 1:18 PM
== END 2018-11-12 16:25 | disposition home or self-care (01) ==
LOC: ER 11:26
DX: R05 Cough (principal); J20.9 Acute bronchitis, unspecified; I10 Essential (primary) hypertension; E11.9 Type 2 diabetes mellitus without complications; K50.90 Crohn's disease, unspecified, without complications; Z85.3 Personal history of malignant neoplasm of breast
CPT/HCPCS: 71046; 83518; 87070; 87400; 99283; J8540

== ENCOUNTER → 2018-12-15 | Outpatient (CLI) | payer MEDICARE ==
--- NOTE | 2018-12-15 15:22 | Diagnostic Imaging Report ---
CT LUMBAR SPINE WO HISTORY: Left lower back pain and hip pain COMPARISON: Lumbar spine CT 10/14/2018 TECHNIQUE: Axial CT images of the lumbar spine were obtained without contrast. Coronal and sagittal reconstructions obtained from the axial data. One or more of the following dose reduction techniques were used: Automated exposure control, adjustment of the mA and/or kV according to patient size, and/or utilization of iterative reconstruction technique. DISCUSSION: Mild bone demineralization limits evaluation. There are 5 nonrib-bearing lumbar vertebral bodies. Lumbar lordosis is preserved. Mild thoracolumbar dextroscoliosis is centered at L2-L3. There is no significant subluxation. No definite acute fracture or compression deformity is seen. No gross spinal canal mass is seen. The paravertebral and paraspinal soft tissues are unremarkable. Mild to moderate multilevel spondylotic changes are most prominent on the left at L2-L3 and L3-L4 and on the right at L5-S1. There are mild degenerative changes in the bilateral sacroiliac joints. L1-L2: No gross canal or foraminal stenosis. L2-L3: No gross canal or foraminal stenosis. L3-L4: No gross canal or foraminal stenosis. L4-L5: Possible mild canal stenosis due to disc bulge and ligamentum flavum thickening. Mild left foraminal stenosis due to disc bulge and facet arthrosis. No significant right foraminal stenosis. L5-S1: Mild right foraminal stenosis due to disc bulge and facet arthrosis. No gross canal or left foraminal stenosis. Aortoiliac calcified atherosclerosis is present. Distended bladder is partially visualized. IMPRESSION: 1. No acute osseous abnormalities. 2. Mild to moderate multilevel spondylosis with mild dextroscoliosis centered at L2-L3. 3. Possible mild degenerative canal stenosis at L4-L5. 4. Mild left L4-L5 and right L5-S1 degenerative foraminal stenoses. Signed by: Dr. Tyler Morris M.D. on 12/15/2018 3:18 PM
== END ==
LOC: CT 13:12
PROVIDERS: ATTEND Internal Medicine
DX: M47.816 Spondylosis without myelopathy or radiculopathy, lumbar region (principal)
CPT/HCPCS: 72131